=== PATIENT | female | born 1960 | race Caucasian/White ===

== ENCOUNTER 2017-06-15 10:03 | Inpatient (IN) | payer OTHER ==
[2017-06-15 10:57] VITALS: BMI 35.5
--- NOTE | 2017-06-15 13:06 | HP ---
CIWA Score - CIWA Score Nausea/Vomitin-No Nausea/No Vomiting Muscle Tremors: 4-Moderate,w/Arms Extend Anxiety: 4-Mod. Anxious/Guarded Agitation: 4-Moderately Restless Paroxysmal Sweats: 1-Minimal Palms Moist Orientation: 0-Oriented Tacttile Disturbances: 3-Moderate Itch/Numb/Burn Auditory Disturbances: 0-None Visual Disturbances: 0-None Headache: 0-None Present CIWA-Ar Total Score: 16 Admission ROS BHS - HPI Chief Complaint: DETOX TX FOR ALCOHOL AND XANAX DEPENDENCE Allergies/Adverse Reactions: Allergies Allergy/AdvReac Type Severity Reaction Status Date / Time haloperidol [From Haldol] AdvReac stiffness Verified 06/15/17 12:12 haloperidol lactate AdvReac stiffness Verified 06/15/17 12:12 [From Haldol] History of Present Illness: 56 Y/O H/FEMALE WITH A HX ALCOHOL AND XANAX DEPENDENCE ON MMTP SEEKING DETOX TX Exam Limitations: No Limitations - Ebola screening Have you traveled outside of the country in the last 21 days: No Have you had contact with anyone from an Ebola affected area: No Have you been sick,other than usual withdrawal symptoms: No Do you have a fever: No - Review of Systems Constitutional: Chills, Loss of Appetite, Night Sweats EENT: reports: Tearing, Nose Congestion, Dental Problems (MISSING TOP TEETH) Respiratory: reports: Shortness of Breath (HX ASTHMA), Wheezing Cardiac: reports: Lightheadedness GI: reports: Constipated : reports: Frequency Musculoskeletal: reports: Back Pain, Joint Pain, Muscle Pain, Other (INGROWN NAIL-RIGHT TOE(WAS ON ANTIBIOTICS)) Integumentary: reports: No Symptoms Reported Neuro: reports: Headache, Tremors, Dizziness Endocrine: reports: No Symptoms Reported Hematology: reports: Anemia Psychiatric: reports: Orientated x3, Agitated, Anxious, Depressed Other Systems: Reviewed and Negative Patient History - Patient Medical History Hx Anemia: No Hx Asthma: Yes (MDI) Hx Chronic Obstructive Pulmonary Disease (COPD): No Hx Cancer: No Hx Cardiac Disorders: No Hx Congestive Heart Failure: No Hx Hypertension: Yes (ON CLONIDINE) Hx Hypercholesterolemia: No Hx Pacemaker: No HX Cerebrovascular Accident: No Hx Seizures: No Hx Dementia: No Hx Diabetes: No Hx Gastrointestinal Disorders: No Hx Liver Disease: No Hx Genitourinary Disorders: No Hx Sexually Transmitted Disorders: No Hx Renal Disease (ESRD): No Hx Thyroid Disease: No Hx Human Immunodeficiency Virus (HIV): No (NEGATIVE HX) Hx Hepatitis C: No Hx Depression: Yes (ON MEDS) Hx Suicide Attempt: No (DENIES) Hx Bipolar Disorder: Yes Hx Schizophrenia: No - Patient Surgical History Past Surgical History: Yes Hx Neurologic Surgery: No Hx Cataract Extraction: No Hx Cardiac Surgery: No Hx Lung Surgery: No Hx Breast Surgery: No Hx Breast Biopsy: No Hx Abdominal Surgery: No Hx Appendectomy: No Hx Cholecystectomy: No Hx Genitourinary Surgery: No Hx Section: No Hx Orthopedic Surgery: Yes (chris. TKR ) Other Surgical History: removal of benign cyst, left breast/left hand Anesthesia Reaction: No - PPD History Previous Implant?: Yes Documented Results: Negative w/proof Implanted On Prior [facility] Admission?: Yes Date: 10/26/15 Results: 0 mm PPD to be Administered?: Yes - Reproductive History Patient is a Female of Child Bearing Age (11 -55 yrs old): Yes Last Menstrual Period: 02/26/12 Patient : No - Smoking Cessation Smoking history: Current every day smoker Have you smoked in the past 12 months: Yes Aproximately how many cigarettes per day: 10 Hx Chewing Tobacco Use: No Initiated information on smoking cessation: Yes 'Breaking Loose' booklet given: 06/15/17 - Substance & Tx. History Hx Alcohol Use: Yes (VODKA) Hx Substance Use: Yes (XANAX) Substance Use Type: Alcohol, Tranquilizers Hx Substance Use Treatment: Yes (LAST TX AT [facility] A YR AGO.) - Substances Abused Alcohol Route: Oral Frequency: Daily Amount used: vodka(1 pint) Age of first use: 55 Date of Last Use: 06/15/17 Alprazolam (Xanax) Route: Oral Frequency: Daily Amount used: 2 stiks Age of first use: 21 Date of Last Use: 06/15/17 Family Disease History - Family Disease History Family Disease History: Other: Mother (MENTAL ILLNESS) Admission Physical Exam BHS - Vital Signs Vital Signs: Vital Signs - 24 hr 06/15/17 10:55 Temperature 97.5 F L Pulse Rate 81 Respiratory 18 Rate Blood Pressure 155/91 - Physical Cardiology: Yes: Regular Rhythm, Regular Rate, S1, S2 Abdominal: Yes: Normal Bowel Sounds, Non Tender, Soft Genitourinary: Yes: Other (N/C) Musculoskeletal: Yes: full range of Motion, Gait Steady, Other (RIGHT TOE WITH HEALING OPEN WOUND DUE TO INGROWN NAIL SX PROCEDURE ON MONTH AGO.) Extremities: Yes: Normal Range of Motion, Non-Tender, Tremors 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 NML intact, Fully Oriented, Alert, Motor Strength 5/5 Integumentary: Yes: Dry, Warm Lymphatic: Yes: Within Normal Limits - Diagnostic (1) Asthma Current Visit: Yes Status: Acute Qualifiers: Asthma severity: mild intermittent Asthma complication type: uncomplicated Qualified Code(s): J45.20 - Mild intermittent asthma, uncomplicated (2) Alcohol dependence with uncomplicated withdrawal Current Visit: Yes Status: Acute (3) Essential hypertension Current Visit: Yes Status: Chronic (4) MMTP Current Visit: Yes Status: Chronic (5) Nicotine dependence Current Visit: Yes Status: Acute Qualifiers: Nicotine product type: cigarettes Substance use status: in withdrawal Qualified Code(s): F17.213 - Nicotine dependence, cigarettes, with withdrawal (6) Obese Current Visit: Yes Status: Chronic Qualifiers: Obesity type: unspecified obesity type (7) Sedative, hypnotic or anxiolytic dependence with withdrawal, uncomplicated Current Visit: Yes Status: Acute Cleared for Admission S - Detox or Rehab [facility] Level of Care: Medically Managed Detox Regimen/Protocol: Valium [facility] Breath Alcohol Content Breath Alcohol Content: 0 Urine Pregancy Test - Result Urine Test Results: Negative- NO Line Present Urine Drug Screen - Results Urine Drug Screen Results: ZENIA-Cocaine, BZO-Benzodiazepines, MTD-Methadone
[2017-06-15] MEDS ORDERED: ACETAMINOPHEN 325 MG TABLET (FP) PO PRN (13:26)
[2017-06-15] MEDS ORDERED: LOPERAMIDE HCL 2 MG CAPSULE PO PRN (13:26)
[2017-06-15] MEDS ORDERED: IBUPROFEN 400 MG TABLET (FP) PO PRN (13:26)
[2017-06-15] MEDS ORDERED: MAGNESIUM CITRATE 300 ML BOTTLE PO PRN (13:26)
[2017-06-15] MEDS ORDERED: MAGNESIUM HYDROX 2400MG/30ML ORAL SUSPENSION 30 ML CUP PO PRN (13:26)
[2017-06-15] MEDS ORDERED: P-EPHED 60MG/TRIPROLIDI 2.5MG TABLET PO PRN (13:26)
[2017-06-15] MEDS ORDERED: hydrOXYzine PAMOATE 50 MG CAPSULE (FP) PO PRN (13:26)
[2017-06-15] MEDS ORDERED: guaiFENesin/D-METHORPHAN HB 10 ML UNIT-DOSE CUPS PO PRN (13:26)
[2017-06-15] MEDS ORDERED: NICOTINE POLACRILEX 2 MG GUM BC PRN (13:26)
[2017-06-15] MEDS ORDERED: MAG HYDROX/AL HYDROX/SIMETH 30 ML UNIT-DOSE CUP PO PRN (13:26)
[2017-06-15] MEDS ORDERED: MENTHOL/PHENOL 1 EACH UD MM PRN (13:26)
[2017-06-15] MEDS ORDERED: ALBUTEROL SO4 6.7 GM HFA INHALER IH PRN (13:30)
[2017-06-15] MEDS ORDERED: BACITRACIN 15 GM TUBE TOPICAL OINTMENT TP SCH (13:30)
[2017-06-15] MEDS ORDERED: diazePAM 5 MG TABLET PO ONE (14:00)
[2017-06-15] MEDS: BACITRACIN 0.9 GM PACKET TP SCH ×2 (14:08→22:36)
[2017-06-15] MEDS: NICOTINE 14 MG/24 HOURS TOPICAL PATCH TD SCH (14:10)
[2017-06-15] MEDS: diazePAM 5 MG TABLET PO SCH ×2 (14:10→22:36)
[2017-06-15 17:11] LABS: URINE APPEARANCE CLOUDY; URINE BILIRUBIN NEGATIVE (NEGATIVE); URINE BLOOD 2+ (NEGATIVE); URINE COLOR DKYELLOW; URINE GLUCOSE (UA) NEGATIVE (NEGATIVE); URINE KETONE NEGATIVE (NEGATIVE); URINE LEUK ESTERASE TRACE (NEGATIVE); URINE NITRITE POSITIVE (NEGATIVE); URINE PROTEIN NEGATIVE (NEGATIVE); URINE UROBILINOGEN NEGATIVE mg/dL (0.2-1.0)
[2017-06-15 17:20] LABS: URINE BACTERIA RARE /hpf (NONE SEEN); URINE HYALINE CAST 1 /lpf; URINE MUCUS RARE; URINE RBC 4 /hpf (0-3); URINE WBC 9 /hpf (3-5)
[2017-06-15] MEDS: diazePAM 5 MG TABLET PO PRN (20:17)
[2017-06-15] MEDS: THIAMINE HCL 100 MG TABLET (FP) PO SCH (22:36)
[2017-06-16] MEDS: diazePAM 5 MG TABLET PO SCH ×3 (05:56→22:05)
[2017-06-16] MEDS ORDERED: METHADONE HCL 10 MG TABLET PO SCH (06:00)
[2017-06-16] MEDS ORDERED: METHADONE HCL 10 MG TABLET PO ONE (09:16)
[2017-06-16] MEDS ORDERED: METHADONE 40 MG, METHADONE 10 MG PO ONE (10:00)
[2017-06-16 10:07] LABS: MCH 26.9 pg (25.7-33.7); MCHC 32.6 g/dl (32.0-36.0); MEAN CELL VOLUME 82.6 fl (80-96); MEAN PLT VOLUME 9.4 fl (7.5-11.1); PLATELET COUNT 181 K/MM3 (134-434); WHITE BLOOD COUNT 5.9 K/mm3 (4.0-10.0)
[2017-06-16] MEDS: PRENATAL VITAMINS W/ FOLIC ACID TABLET (FP) PO SCH (10:40)
[2017-06-16] MEDS: cloNIDine HCL 0.1 MG TABLET PO SCH (10:41)
[2017-06-16] MEDS: BACITRACIN 0.9 GM PACKET TP SCH ×2 (10:41→22:05)
[2017-06-16] MEDS ORDERED: METHADONE HCL 40 MG DISPERSABLE TABLET ONE (10:42)
[2017-06-16] MEDS ORDERED: METHADONE HCL 10 MG TABLET ONE (10:42)
[2017-06-16] MEDS: NICOTINE 14 MG/24 HOURS TOPICAL PATCH TD SCH (10:45)
[2017-06-16 11:02] LABS: ALBUMIN 4.1 g/dl (3.4-5.0); ALK PHOS 108 U/L (45-117); ANION GAP 8 (8-16); BILIRUBIN,TOTAL 0.8 mg/dL (0.2-1.0); CALCIUM 9.2 mg/dL (8.5-10.1); CO2 30 mmol/L (21-32); CREATININE 0.9 mg/dL (0.55-1.02); GLUCOSE,RANDOM 87 mg/dL (74-106); SGOT/AST 21 U/L (15-37); SGPT/ALT 25 U/L (12-78); TOT PROT 7.7 g/dl (6.4-8.2)
--- NOTE | 2017-06-16 12:06 | PN ---
S CIWA - CIWA Score Nausea/Vomitin-No Nausea/No Vomiting Muscle Tremors: 4-Moderate,w/Arms Extend Anxiety: 3 Agitation: 4-Moderately Restless Paroxysmal Sweats: 3 Orientation: 0-Oriented Tacttile Disturbances: 0-None Auditory Disturbances: 0-None Visual Disturbances: 0-None Headache: 0-None Present CIWA-Ar Total Score: 14 BHS Progress Note (SOAP) Subjective: agitation anxiety sweats shakes interrupted sleep tired Objective: 06/16/17 12:05 Vital Signs Temperature 97.7 F 06/16/17 10:34 Pulse Rate 84 06/16/17 10:34 Respiratory Rate 18 06/16/17 10:34 Blood Pressure 131/89 06/16/17 10:34 O2 Sat by Pulse Oximetry (%) Laboratory Tests 06/15/17 06/16/17 06/16/17 15:00 06:00 06:00 WBC 5.9 RBC 4.83 Hgb 13.0 Hct 39.9 MCV 82.6 MCH 26.9 MCHC 32.6 RDW 16.0 H Plt Count 181 MPV 9.4 Sodium 140 Potassium 3.9 Chloride 102 Carbon Dioxide 30 D Anion Gap 8 BUN 18 Creatinine 0.9 Creat Clearance w eGFR > 60 Random Glucose 87 D Calcium 9.2 Total Bilirubin 0.8 D AST 21 ALT 25 Alkaline Phosphatase 108 Total Protein 7.7 Albumin 4.1 Urine Color Dkyellow Urine Appearance Cloudy Urine pH 7.0 Ur Specific [place] 1.020 Urine Protein Negative Urine Glucose (UA) Negative Urine Ketones Negative Urine Blood 2+ H Urine Nitrite Positive Urine Bilirubin Negative Urine Urobilinogen Negative Ur Leukocyte Esterase Trace Urine RBC 4 Urine WBC 9 Ur Epithelial Cells Rare Urine Bacteria Rare Hyaline Casts 1 Urine Mucus Rare RPR Titer 06/16/17 06:00 WBC RBC Hgb Hct MCV MCH MCHC RDW Plt Count MPV Sodium Potassium Chloride Carbon Dioxide Anion Gap BUN Creatinine Creat Clearance w eGFR Random Glucose Calcium Total Bilirubin AST ALT Alkaline Phosphatase Total Protein Albumin Urine Color Urine Appearance Urine pH Ur Specific [place] Urine Protein Urine Glucose (UA) Urine Ketones Urine Blood Urine Nitrite Urine Bilirubin Urine Urobilinogen Ur Leukocyte Esterase Urine RBC Urine WBC Ur Epithelial Cells Urine Bacteria Hyaline Casts Urine Mucus RPR Titer Nonreactive awake/alert ambulating no acute distress Assessment: 06/16/17 12:05 withdrawal sx Plan: continue detox increase fluids
--- NOTE | 2017-06-16 13:28 | CONSULT ---
[facility] Psychiatric Consult - Data Date of interview: 06/16/17 Admission source: [facility] Identifying data: Patient refused psychiatric evaluation.Staff made aware.
[2017-06-16] MEDS: diazePAM 5 MG TABLET PO PRN (17:17)
[2017-06-16] MEDS: diphenhydrAMINE HCL 50 MG CAPSULE PO PRN (22:05)
[2017-06-16] MEDS: THIAMINE HCL 100 MG TABLET (FP) PO SCH (22:06)
[2017-06-17] MEDS ORDERED: METHADONE HCL 40 MG DISPERSABLE TABLET ONE (04:29)
[2017-06-17] MEDS ORDERED: METHADONE HCL 10 MG TABLET ONE (04:29)
[2017-06-17] MEDS: METHADONE 40 MG, METHADONE 10 MG PO SCH (05:51)
[2017-06-17] MEDS: diazePAM 5 MG TABLET PO PRN ×2 (05:52→17:19)
[2017-06-17] MEDS ORDERED: METHADONE HCL 40 MG DISPERSABLE TABLET PO SCH (06:00)
[2017-06-17] MEDS: PRENATAL VITAMINS W/ FOLIC ACID TABLET (FP) PO SCH (10:34)
[2017-06-17] MEDS: BACITRACIN 0.9 GM PACKET TP SCH ×2 (10:34→22:06)
[2017-06-17] MEDS: diazePAM 5 MG TABLET PO SCH ×2 (10:34→22:06)
[2017-06-17] MEDS: cloNIDine HCL 0.1 MG TABLET PO SCH (10:34)
[2017-06-17] MEDS: NICOTINE 14 MG/24 HOURS TOPICAL PATCH TD SCH (10:36)
--- NOTE | 2017-06-17 11:03 | PN ---
[facility] CIWA - CIWA Score Nausea/Vomitin-No Nausea/No Vomiting Muscle Tremors: 3 Anxiety: 3 Agitation: 3 Paroxysmal Sweats: 3 Orientation: 0-Oriented Tacttile Disturbances: 0-None Auditory Disturbances: 0-None Visual Disturbances: 0-None Headache: 0-None Present CIWA-Ar Total Score: 12 S Progress Note (SOAP) Subjective: sweats shakes interrupted sleep Objective: 06/17/17 10:59 Vital Signs Temperature 98.2 F 06/17/17 10:12 Pulse Rate 70 06/17/17 10:12 Respiratory Rate 18 06/17/17 10:12 Blood Pressure 115/86 06/17/17 10:12 O2 Sat by Pulse Oximetry (%) Laboratory Tests 06/15/17 06/16/17 06/16/17 15:00 06:00 06:00 WBC 5.9 RBC 4.83 Hgb 13.0 Hct 39.9 MCV 82.6 MCH 26.9 MCHC 32.6 RDW 16.0 H Plt Count 181 MPV 9.4 Sodium 140 Potassium 3.9 Chloride 102 Carbon Dioxide 30 D Anion Gap 8 BUN 18 Creatinine 0.9 Creat Clearance w eGFR > 60 Random Glucose 87 D Calcium 9.2 Total Bilirubin 0.8 D AST 21 ALT 25 Alkaline Phosphatase 108 Total Protein 7.7 Albumin 4.1 Urine Color Dkyellow Urine Appearance Cloudy Urine pH 7.0 Ur Specific [place] 1.020 Urine Protein Negative Urine Glucose (UA) Negative Urine Ketones Negative Urine Blood 2+ H Urine Nitrite Positive Urine Bilirubin Negative Urine Urobilinogen Negative Ur Leukocyte Esterase Trace Urine RBC 4 Urine WBC 9 Ur Epithelial Cells Rare Urine Bacteria Rare Hyaline Casts 1 Urine Mucus Rare RPR Titer 06/16/17 06:00 WBC RBC Hgb Hct MCV MCH MCHC RDW Plt Count MPV Sodium Potassium Chloride Carbon Dioxide Anion Gap BUN Creatinine Creat Clearance w eGFR Random Glucose Calcium Total Bilirubin AST ALT Alkaline Phosphatase Total Protein Albumin Urine Color Urine Appearance Urine pH Ur Specific [place] Urine Protein Urine Glucose (UA) Urine Ketones Urine Blood Urine Nitrite Urine Bilirubin Urine Urobilinogen Ur Leukocyte Esterase Urine RBC Urine WBC Ur Epithelial Cells Urine Bacteria Hyaline Casts Urine Mucus RPR Titer Nonreactive awake/alert ambulating no acute distress Assessment: 06/17/17 11:02 withdrawal sx Plan: continue detox increase fluids
[2017-06-17] MEDS: diphenhydrAMINE HCL 50 MG CAPSULE PO PRN (22:06)
[2017-06-17] MEDS: THIAMINE HCL 100 MG TABLET (FP) PO SCH (22:06)
[2017-06-18] MEDS ORDERED: METHADONE HCL 40 MG DISPERSABLE TABLET ONE (05:11)
[2017-06-18] MEDS ORDERED: METHADONE HCL 10 MG TABLET ONE (05:12)
[2017-06-18] MEDS: METHADONE 40 MG, METHADONE 10 MG PO SCH (05:23)
--- NOTE | 2017-06-18 09:52 | PN ---
BHS Progress Note (SOAP) Subjective: feeling fine very little sweats Objective: 06/18/17 09:51 Vital Signs Temperature 97.3 F L 06/18/17 09:39 Pulse Rate 69 06/18/17 09:39 Respiratory Rate 16 06/18/17 09:39 Blood Pressure 134/79 06/18/17 09:39 O2 Sat by Pulse Oximetry (%) awake/alert ambulating no acute distress Assessment: 06/18/17 09:51 mild withdrawal sx Plan: continue detox increase fluids d/c in am
[2017-06-18] MEDS: diazePAM 5 MG TABLET PO SCH ×2 (10:22→22:30)
[2017-06-18] MEDS: cloNIDine HCL 0.1 MG TABLET PO SCH (10:22)
[2017-06-18] MEDS: BACITRACIN 0.9 GM PACKET TP SCH ×2 (10:23→22:30)
[2017-06-18] MEDS: PRENATAL VITAMINS W/ FOLIC ACID TABLET (FP) PO SCH (10:23)
[2017-06-18] MEDS: NICOTINE 14 MG/24 HOURS TOPICAL PATCH TD SCH (10:23)
--- NOTE | 2017-06-18 11:37 | EKG ---
Test Reason : Blood Pressure : / mmHG Vent. Rate : 073 BPM Atrial Rate : 073 BPM P-R Int : 184 ms QRS Dur : 086 ms QT Int : 396 ms P-R-T Axes : 071 011 025 degrees QTc Int : 436 ms NORMAL SINUS RHYTHM NORMAL ECG NO PREVIOUS ECGS AVAILABLE Confirmed by ELY ROMAN MD ([id number]) on 06/18/2017 11:37:43 AM Referred By: Danny Curiel Confirmed By:ELY ROMAN MD
[2017-06-18] MEDS: THIAMINE HCL 100 MG TABLET (FP) PO SCH (22:30)
[2017-06-19] MEDS ORDERED: METHADONE HCL 10 MG TABLET ONE (04:09)
[2017-06-19] MEDS ORDERED: METHADONE HCL 40 MG DISPERSABLE TABLET ONE (04:09)
[2017-06-19] MEDS: METHADONE 40 MG, METHADONE 10 MG PO SCH (05:52)
--- NOTE | 2017-06-19 09:15 | DS ---
[facility] Detox Discharge Summary Admission Date: 06/15/17 Discharge Date: 06/19/17 - History Present History: Alcohol Dependence, Sedative Dependence - Physical Exam Results Vital Signs: Vital Signs Temperature 97.0 F L 06/19/17 06:00 Pulse Rate 79 06/19/17 06:00 Respiratory Rate 18 06/19/17 06:00 Blood Pressure 118/76 06/19/17 06:00 O2 Sat by Pulse Oximetry (%) - Treatment Hospital Course: Detox Protocol Followed, Detoxed Safely, Responded well, Discharged Condition Good, Rehab Referral Accepted - Medication Discharge Medications: Ambulatory Orders Clonidine HCl [Catapres] 0.3 mg PO DAILY 04/07/12 Quetiapine Fumarate [Seroquel -] 200 mg PO BID #60 tablet 10/24/15 Albuterol Sulfate Inhaler - [Ventolin HFA Inhaler -] 0 puff IH Q4H PRN #1 inhaler 10/28/15 - Diagnosis (1) Alcohol dependence with uncomplicated withdrawal Current Visit: Yes Status: Chronic (2) Asthma Current Visit: Yes Status: Chronic Qualifiers: Asthma severity: mild intermittent Asthma complication type: uncomplicated Qualified Code(s): J45.20 - Mild intermittent asthma, uncomplicated (3) Nicotine dependence Current Visit: Yes Status: Chronic Qualifiers: Nicotine product type: cigarettes Substance use status: uncomplicated Qualified Code(s): F17.210 - Nicotine dependence, cigarettes, uncomplicated (4) Sedative, hypnotic or anxiolytic dependence with withdrawal, uncomplicated Current Visit: Yes Status: Chronic (5) Essential hypertension Current Visit: Yes Status: Chronic (6) MMTP Current Visit: Yes Status: Chronic (7) Obese Current Visit: Yes Status: Chronic Qualifiers: Obesity type: unspecified obesity type - AMA Did Patient Leave Against Medical Advice: No (going home and back to her MMTP)
[2017-06-19] MEDS: NICOTINE 14 MG/24 HOURS TOPICAL PATCH TD SCH (09:55)
[2017-06-19] MEDS: cloNIDine HCL 0.1 MG TABLET PO SCH (09:55)
[2017-06-19] MEDS: PRENATAL VITAMINS W/ FOLIC ACID TABLET (FP) PO SCH (09:55)
[2017-06-19] MEDS: BACITRACIN 0.9 GM PACKET TP SCH (09:55)
[2017-06-19] MEDS ORDERED: diazePAM 5 MG TABLET PO SCH (10:00)
[2017-06-19 10:39] VITALS: BP 126/90; PULSE 78; TEMP 98.2
== END 2017-06-19 11:20 | disposition home or self-care (01) | DRG 773 ==
LOC: YASAS 10:03 → Y6N 13:19
PROVIDERS: ADMIT Internal Medicine Addiction Medicine; ATTEND Internal Medicine Addiction Medicine
PROC: HZ2ZZZZ Detoxification Services for Substance Abuse Treatment (ICD-10-PCS; principal; 2017-06-19)
DX: F11.20 Opioid dependence, uncomplicated (principal); F10.230 Alcohol dependence with withdrawal, uncomplicated; F17.210 Nicotine dependence, cigarettes, uncomplicated; I10 Essential (primary) hypertension; E66.09 Other obesity due to excess calories; Z68.35 Body mass index [BMI] 35.0-35.9, adult
CPT/HCPCS: 36415; 80053; 81003; 81015; 85027; 86593; 93005; 93010

== ENCOUNTER 2017-11-09 11:24 | Inpatient (IN) | payer OTHER ==
[2017-11-09 14:43] VITALS: BMI 34.1
--- NOTE | 2017-11-09 17:53 | HP ---
CIWA Score - CIWA Score Nausea/Vomitin-Mild Nausea/No Vomiting Muscle Tremors: 4-Moderate,w/Arms Extend Anxiety: 4-Mod. Anxious/Guarded Agitation: 4-Moderately Restless Paroxysmal Sweats: 1-Minimal Palms Moist Orientation: 3-Disoriented Date>2 days Tacttile Disturbances: 1-Very Mild Itch/Numbness Auditory Disturbances: 0-None Visual Disturbances: 0-None Headache: 0-None Present CIWA-Ar Total Score: 18 Admission ROS S - HPI Chief Complaint: withdrawal sx Allergies/Adverse Reactions: Allergies Allergy/AdvReac Type Severity Reaction Status Date / Time haloperidol [From Haldol] AdvReac stiffness Verified 11/09/17 15:47 haloperidol lactate AdvReac stiffness Verified 11/09/17 15:47 [From Haldol] History of Present Illness: 57 years old female with long history of alcohol xanax nicotine dependence has asthma hypertension methadone 40mg po daily and bipolar ii is admitted to detox Exam Limitations: No Limitations - Ebola screening Have you traveled outside of the country in the last 21 days: No (N) Have you had contact with anyone from an Ebola affected area: No Have you been sick,other than usual withdrawal symptoms: No Do you have a fever: No - Review of Systems Constitutional: Changes in sleep, Weight Stable EENT: reports: Dental Problems (upper denture missing) Respiratory: reports: SOB with Exertion Cardiac: reports: No Symptoms Reported GI: reports: Diarrhea, Nausea, Poor Fluid Intake, Indigestion, Abdominal cramping : reports: No Symptoms Reported Musculoskeletal: reports: Back Pain (x 20 years) Integumentary: reports: No Symptoms Reported Neuro: reports: Seizure (denies seizure), Tremors Endocrine: reports: No Symptoms Reported Hematology: reports: No Symptoms Reported Psychiatric: reports: Judgement Intact, Depressed Other Systems: Reviewed and Negative Patient History - Patient Medical History Hx Anemia: No Hx Asthma: Yes (Pt is on MDI) Hx Chronic Obstructive Pulmonary Disease (COPD): No Hx Cancer: No Hx Cardiac Disorders: No Hx Congestive Heart Failure: No Hx Hypertension: Yes Hx Hypercholesterolemia: No Hx Pacemaker: No HX Cerebrovascular Accident: No Hx Seizures: No Hx Dementia: No Hx Diabetes: No Hx Gastrointestinal Disorders: Yes Hx Liver Disease: No Hx Genitourinary Disorders: No Hx Sexually Transmitted Disorders: No Hx Renal Disease (ESRD): No Hx Thyroid Disease: No Hx Human Immunodeficiency Virus (HIV): No (NEGATIVE HX) Hx Hepatitis C: No Hx Depression: No Hx Suicide Attempt: No Hx Bipolar Disorder: Yes Hx Schizophrenia: No - Patient Surgical History Past Surgical History: Yes Hx Neurologic Surgery: No Hx Cataract Extraction: No Hx Cardiac Surgery: No Hx Lung Surgery: No Hx Breast Surgery: No Hx Breast Biopsy: No Hx Abdominal Surgery: No Hx Appendectomy: No Hx Cholecystectomy: No Hx Genitourinary Surgery: No Hx Section: No Hx Orthopedic Surgery: Yes (chris. TKR IN 2013) Hx Hysterectomy: No Other Surgical History: removal of benign cyst, left breast/left hand Anesthesia Reaction: No - PPD History Previous Implant?: Yes Documented Results: Negative w/proof Implanted On Prior [facility] Admission?: Yes Date: 06/17/17 Results: 0 MM PPD to be Administered?: No - Reproductive History Patient is a Female of Child Bearing Age (11 -55 yrs old): No Last Menstrual Period: 02/26/12 Patient : No - Smoking Cessation Smoking history: Current every day smoker Have you smoked in the past 12 months: Yes Aproximately how many cigarettes per day: 10 Cigars Per Day: 0 Hx Chewing Tobacco Use: No Initiated information on smoking cessation: Yes 'Breaking Loose' booklet given: 11/09/17 - Substance & Tx. History Hx Alcohol Use: Yes Hx Substance Use: Yes Substance Use Type: Alcohol, Tranquilizers Hx Substance Use Treatment: Yes (06/2017 [facility] - Substances Abused Alcohol Route: Oral Frequency: Daily Amount used: 1 PINT VODKA Age of first use: 10 Date of Last Use: 11/09/17 Alprazolam (Xanax) Route: Oral Frequency: Daily Amount used: 8MG Age of first use: 52 Date of Last Use: 11/09/17 Family Disease History - Family Disease History Family Disease History: Other: Father (no contact), Mother (MENTAL ILLNESS/ ) Admission Physical Exam S - Vital Signs Vital Signs: Vital Signs - 24 hr 11/09/17 14:39 Temperature 96 F L Pulse Rate 73 Respiratory 20 Rate Blood Pressure 144/88 - Physical General Appearance: Yes: Nourished, Appropriately Dressed, Mild Distress, Tremorous, Irritable, Sweating, Anxious HEENTM: Yes: Hearing grossly Normal, Normal ENT Inspection, Normocephalic, Normal Voice Respiratory: Yes: Chest Non-Tender, No Respiratory Distress, No Accessory Muscle Use, Wheezing Neck: Yes: Supple, Trachea in good position Breast: Yes: Breasts Symetrical Cardiology: Yes: Regular Rhythm, Regular Rate, S1, S2 Abdominal: Yes: Non Tender, Soft, Increased Bowel Sounds Genitourinary: Yes: Within Normal Limits Back: Yes: Normal Inspection Musculoskeletal: Yes: full range of Motion, Gait Steady, Other (knees pain) Extremities: Yes: Normal Range of Motion, Non-Tender, Tremors, Other (knees scars) Neurological: Yes: Alert, Motor Strength 5/5, Normal Response, Depressed Affect Integumentary: Yes: Warm Lymphatic: Yes: Within Normal Limits - Diagnostic (1) GERD (gastroesophageal reflux disease) Current Visit: Yes Status: Chronic Qualifiers: Esophagitis presence: without esophagitis Qualified Code(s): K21.9 - Gastro -esophageal reflux disease without esophagitis (2) Bipolar II disorder Current Visit: Yes Status: Suspected (3) Alcohol dependence with uncomplicated withdrawal Current Visit: Yes Status: Acute (4) Asthma Current Visit: Yes Status: Chronic Qualifiers: Asthma severity: mild Asthma persistence: intermittent Asthma complication type: uncomplicated Qualified Code(s): J45.20 - Mild intermittent asthma, uncomplicated (5) Essential hypertension Current Visit: Yes Status: Chronic (6) Nicotine dependence Current Visit: Yes Status: Acute Qualifiers: Nicotine product type: cigarettes Substance use status: in withdrawal Qualified Code(s): F17.213 - Nicotine dependence, cigarettes, with withdrawal (7) Sedative, hypnotic or anxiolytic dependence with withdrawal, uncomplicated Current Visit: Yes Status: Acute Cleared for Admission [facility] - Detox or Rehab [facility] Level of Care: Medically Managed Detox Regimen/Protocol: Valium [facility] Breath Alcohol Content Breath Alcohol Content: 0 Urine Pregancy Test - Result Urine Test Results: Negative- NO Line Present Urine Drug Screen - Results Drug Screen Negative: No Urine Drug Screen Results: BZO-Benzodiazepines, MTD-Methadone, TCA-Tricyclic Antidepress
[2017-11-09] MEDS ORDERED: MAG HYDROX/AL HYDROX/SIMETH 30 ML UNIT-DOSE CUP PO PRN (17:56)
[2017-11-09] MEDS ORDERED: MAGNESIUM HYDROX 2400MG/30ML ORAL SUSPENSION 30 ML CUP PO PRN (17:56)
[2017-11-09] MEDS ORDERED: MENTHOL/PHENOL 1 EACH UD MM PRN (17:56)
[2017-11-09] MEDS ORDERED: LOPERAMIDE HCL 2 MG CAPSULE PO PRN (17:56)
[2017-11-09] MEDS ORDERED: ACETAMINOPHEN 325 MG TABLET (FP) PO PRN (17:56)
[2017-11-09] MEDS ORDERED: MAGNESIUM CITRATE 300 ML BOTTLE PO PRN (17:56)
[2017-11-09] MEDS ORDERED: P-EPHED 60MG/TRIPROLIDI 2.5MG TABLET PO PRN (17:56)
[2017-11-09] MEDS ORDERED: guaiFENesin/D-METHORPHAN HB 10 ML UNIT-DOSE CUPS PO PRN (17:56)
[2017-11-09] MEDS ORDERED: NICOTINE POLACRILEX 2 MG GUM BC PRN (17:56)
[2017-11-09] MEDS ORDERED: ALBUTEROL SO4 18 GM HFA INHALER IH PRN (17:59)
[2017-11-09] MEDS ORDERED: ALBUTEROL SO4 0.083% IH SOL 2.5 MG/3 ML VIAL.NEB. NEB PRN (18:00)
[2017-11-09] MEDS ORDERED: diazePAM 5 MG TABLET PO ONE (18:30)
[2017-11-09] MEDS: diazePAM 5 MG TABLET PO SCH (22:17)
[2017-11-09] MEDS: RANITIDINE HCL 150 MG TABLET (FP) PO SCH (22:17)
[2017-11-09] MEDS: THIAMINE HCL 100 MG TABLET (FP) PO SCH (22:17)
[2017-11-09 22:55] LABS: URINE APPEARANCE TURBID; URINE BILIRUBIN NEGATIVE (NEGATIVE); URINE BLOOD 1+ (NEGATIVE); URINE COLOR YELLOW; URINE GLUCOSE (UA) NEGATIVE (NEGATIVE); URINE KETONE NEGATIVE (NEGATIVE); URINE NITRITE NEGATIVE (NEGATIVE); URINE UROBILINOGEN NEGATIVE mg/dL (0.2-1.0)
[2017-11-09] MEDS: LIDOCAINE PATCH REMOVAL MC SCH (22:57)
[2017-11-09 23:10] LABS: URINE LEUK ESTERASE 1+ (NEGATIVE); URINE PROTEIN 1+ (NEGATIVE)
[2017-11-09 23:14] LABS: URINE BACTERIA FEW /hpf (NONE SEEN); URINE MUCUS MANY
[2017-11-10] MEDS: diazePAM 5 MG TABLET PO SCH ×3 (05:32→22:18)
[2017-11-10] MEDS ORDERED: METHADONE HCL 10 MG TABLET PO SCH ×2 (09:30→10:49)
--- NOTE | 2017-11-10 09:33 | CONSULT ---
[facility] Psychiatric Consult - Data Date of interview: 11/10/17 Admission source: [facility] Identifying data: Pt. is a 57 year old female, single, mother of two, and currently unemployed. This is one of multiple admissions for patient. Pt. admitted to for alcohol and benzodiazepines dependence. Substance Abuse History: Following information confirmed with Ms. Henry: Smoking Cessation. Smoking history: Current every day smoker. Have you smoked in the past 12 months: Yes. Aproximately how many cigarettes per day: 10. Cigars Per Day: 0. Hx Chewing Tobacco Use: No. Initiated information on smoking cessation: Yes. 'Breaking Loose' booklet given: 11/09/17. - Substance & Tx. History. Hx Alcohol Use: Yes. Hx Substance Use: Yes. Substance Use Type : Alcohol, Tranquilizers. Hx Substance Use Treatment: Yes (06/2017 [facility]). - Substances Abused. Alcohol. Route: Oral. Frequency: Daily. Amount used : 1 PINT VODKA. Age of first use: 10. Date of Last Use: 11/09/17. Alprazolam (Xanax). Route: Oral. Frequency: Daily. Amount used: 8MG. Age of first use: 52. Date of Last Use: 11/09/17 Medical History: Asthma, hypertension Psychiatric History: Pt. reports h/o one psychiatric hospitalization approximately five years ago at [facility]. Reports a diagnosis of Bipolar disorder. Is currently seeing a psychiatrist at [facility] on [address] [place] [address]. As per pharmacy claims on 10/29/2017 patient is prescribed: Seroquel 200mg BID, Topamax 50mg BID, Ambien 10mg prn, klonopin 1mg q8r, and clonodine 0.3mg BID. Pt. reports medicatin nonadherence. Only requesting seroquel 100mg qhs. Pt. encouraged to take a morning dose of seroquel. Pt. agreeable to taking seroquel 50mg po daily in addition to the seroquel 100mg qhs. Pt. denies h/o suicide attempts. Physical/Sexual Abuse/Trauma History: Denies. Mental Status Exam - Mental Status Exam Alert and Oriented to: Time, Place, Person Cognitive Function: Good Patient Appearance: Well Groomed Mood: Euthymic Affect: Mood Congruent Patient Behavior: Cooperative, Agitated (Pt. irritable towards the beginning then able to settle down.) Speech Pattern: Appropriate Voice Loudness: Normal Thought Process: Goal Oriented Thought Disorder: Not Present Hallucinations: Denies Suicidal Ideation: Denies Homicidal Ideation: Denies Insight/Judgement: Poor Sleep: Poorly Appetite: Fair Muscle strength/Tone: Normal Gait/Station: Normal Psychiatric Findings - Problem List ([place] 1, 2,3) (1) Bipolar disorder Current Visit: Yes Status: Chronic Comment: Self reports. (2) Alcohol dependence with uncomplicated withdrawal Current Visit: Yes Status: Acute (3) Nicotine dependence Current Visit: Yes Status: Acute Qualifiers: Nicotine product type: cigarettes Substance use status: in withdrawal Qualified Code(s): F17.213 - Nicotine dependence, cigarettes, with withdrawal (4) Sedative, hypnotic or anxiolytic dependence with withdrawal, uncomplicated Current Visit: Yes Status: Acute - Initial Treatment Plan Initial Treatment Plan: Psychoeducation provided. Detoxification in progress. Seroquel 50mg po daily + Seroquel 100mg qhs. Benefits and side effects discussed. Verbal consent given. Will continue to monitor patient.
[2017-11-10 10:11] LABS: HEMATOCRIT 39.7 % (32.4-45.2); HEMOGLOBIN 12.7 GM/dL (10.7-15.3); MCH 26.1 pg (25.7-33.7); MEAN CELL VOLUME 81.7 fl (80-96); MEAN PLT VOLUME 8.9 fl (7.5-11.1); PLATELET COUNT 167 K/MM3 (134-434); RBC 4.86 M/mm3 (3.60-5.2); RDW 14.7 % (11.6-15.6); WHITE BLOOD COUNT 4.4 K/mm3 (4.0-10.0)
[2017-11-10] MEDS: NICOTINE 14 MG/24 HOURS TOPICAL PATCH TD SCH (10:30)
[2017-11-10] MEDS: LIDOCAINE 5% TOPICAL PATCH TP SCH (10:30)
[2017-11-10] MEDS: PRENATAL VITAMINS W/ FOLIC ACID TABLET (FP) PO SCH (10:32)
[2017-11-10] MEDS: RANITIDINE HCL 150 MG TABLET (FP) PO SCH ×2 (10:32→22:18)
[2017-11-10] MEDS: QUEtiapine FUMARATE 50 MG TABLET PO SCH (10:32)
--- NOTE | 2017-11-10 10:48 | PN ---
S CIWA - CIWA Score Nausea/Vomitin-Mild Nausea/No Vomiting Muscle Tremors: 3 Anxiety: 3 Agitation: 1-Slight > Activity Paroxysmal Sweats: 1-Minimal Palms Moist Orientation: 0-Oriented Tacttile Disturbances: 0-None Auditory Disturbances: 2-Mild Harshness/Frighten Visual Disturbances: 1-Very Mild Sensitivity Headache: 2-Mild CIWA-Ar Total Score: 14 BHS Progress Note (SOAP) Objective: 11/10/17 10:48 Laboratory Tests 11/09/17 11/10/17 11/10/17 22:40 07:00 07:00 WBC 4.4 RBC 4.86 Hgb 12.7 Hct 39.7 MCV 81.7 MCH 26.1 MCHC 32.0 RDW 14.7 Plt Count 167 MPV 8.9 Urine Color Yellow Urine Appearance Turbid Urine pH 5.0 D Ur Specific [place] 1.026 Urine Protein 1+ H Urine Glucose (UA) Negative Urine Ketones Negative Urine Blood 1+ H Urine Nitrite Negative Urine Bilirubin Negative Urine Urobilinogen Negative Ur Leukocyte Esterase 1+ H Urine WBC (Auto) 156 Urine RBC (Auto) 24 Urine Bacteria Few Urine Mucus Many HIV 1&2 Antibody Screen Negative HIV P24 Antigen Negative Vital Signs - 24 hr 11/09/17 11/09/17 11/09/17 14:39 18:49 23:10 Temperature 96 F L 95.3 F L 97.2 F L Pulse Rate 73 78 82 Respiratory 20 18 18 Rate Blood Pressure 144/88 133/78 108/71 11/10/17 11/10/17 11/10/17 00:57 03:30 06:00 Temperature 96.8 F L Pulse Rate 59 L Respiratory 18 18 18 Rate Blood Pressure 145/94 11/10/17 09:37 Temperature 97.3 F L Pulse Rate 71 Respiratory 18 Rate Blood Pressure 106/72 Assessment: 11/10/17 10:48 ONGOING WITHDRAWAL Plan: CONT DETOX PROTOCOL
--- NOTE | 2017-11-10 10:50 | PN ---
S Progress Note Note: NOTE UA-PEPEAT ORDERED CLEAN CATCH
[2017-11-10] MEDS ORDERED: METHADONE HCL 5 MG TABLET ONE (11:13)
[2017-11-10] MEDS ORDERED: METHADONE HCL 40 MG DISPERSABLE TABLET ONE (11:14)
[2017-11-10] MEDS ORDERED: METHADONE 40 MG, METHADONE 5 MG PO ONE (11:15)
[2017-11-10 11:33] LABS: CHLORIDE 103 mmol/L (98-107); POTASSIUM 3.9 mmol/L (3.5-5.1); SODIUM 140 mmol/L (136-145)
[2017-11-10 11:48] LABS: ALBUMIN 3.4 g/dl (3.4-5.0); ALK PHOS 98 U/L (45-117); ANION GAP 9 (8-16); BILIRUBIN,TOTAL 0.5 mg/dL (0.2-1.0); BLOOD UREA NITROGEN 22 mg/dL (7-18); CALCIUM 8.9 mg/dL (8.5-10.1); CO2 28 mmol/L (21-32); CREATININE 0.9 mg/dL (0.55-1.02); GLUCOSE,RANDOM 129 mg/dL (74-106); SGOT/AST 20 U/L (15-37); SGPT/ALT 24 U/L (12-78); TOT PROT 6.7 g/dl (6.4-8.2)
[2017-11-10] MEDS ORDERED: FLU VACCINE QUAD 60 MCG/0.5 ML (MDV 17-18) IM ONE (12:00)
[2017-11-10 17:07] LABS: URINE APPEARANCE CLEAR; URINE BILIRUBIN NEGATIVE (NEGATIVE); URINE BLOOD 1+ (NEGATIVE); URINE COLOR YELLOW; URINE GLUCOSE (UA) NEGATIVE (NEGATIVE); URINE KETONE NEGATIVE (NEGATIVE); URINE LEUK ESTERASE 1+ (NEGATIVE); URINE NITRITE NEGATIVE (NEGATIVE); URINE PROTEIN NEGATIVE (NEGATIVE); URINE UROBILINOGEN NEGATIVE mg/dL (0.2-1.0)
[2017-11-10 17:17] LABS: EPI CELLS RARE /HPF (FEW); URINE BACTERIA FEW /hpf (NONE SEEN); URINE MUCUS RARE
[2017-11-10] MEDS: LIDOCAINE PATCH REMOVAL MC SCH (22:18)
[2017-11-10] MEDS: QUEtiapine FUMARATE 100 MG TABLET (FP) PO SCH (22:18)
[2017-11-10] MEDS: THIAMINE HCL 100 MG TABLET (FP) PO SCH (22:18)
[2017-11-11] MEDS ORDERED: METHADONE HCL 40 MG DISPERSABLE TABLET ONE (05:06)
[2017-11-11] MEDS ORDERED: METHADONE HCL 5 MG TABLET ONE (05:06)
[2017-11-11] MEDS: METHADONE 40 MG, METHADONE 5 MG PO SCH (05:25)
[2017-11-11] MEDS: diazePAM 5 MG TABLET PO PRN ×2 (05:25→17:50)
--- NOTE | 2017-11-11 07:54 | EKG ---
Test Reason : Blood Pressure : / mmHG Vent. Rate : 058 BPM Atrial Rate : 058 BPM P-R Int : 188 ms QRS Dur : 086 ms QT Int : 418 ms P-R-T Axes : 065 022 022 degrees QTc Int : 410 ms SINUS BRADYCARDIA OTHERWISE NORMAL ECG WHEN COMPARED WITH ECG OF 15-JUN-2017 12:54, NO SIGNIFICANT CHANGE WAS FOUND Confirmed by MARIFER WHITMAN MD ([id number]) on 11/11/2017 7:54:07 AM Referred By: Confirmed By:MARIFER WHITMAN MD
[2017-11-11] MEDS: QUEtiapine FUMARATE 50 MG TABLET PO SCH (09:56)
[2017-11-11] MEDS: RANITIDINE HCL 150 MG TABLET (FP) PO SCH ×2 (09:56→22:24)
[2017-11-11] MEDS: diazePAM 5 MG TABLET PO SCH ×2 (09:57→22:24)
[2017-11-11] MEDS: PRENATAL VITAMINS W/ FOLIC ACID TABLET (FP) PO SCH (09:59)
[2017-11-11] MEDS: NICOTINE 14 MG/24 HOURS TOPICAL PATCH TD SCH (11:18)
[2017-11-11] MEDS: LIDOCAINE 5% TOPICAL PATCH TP SCH (11:18)
[2017-11-11] MEDS ORDERED: AZITHROMYCIN 250 MG TABLET PO ONE (14:32)
--- NOTE | 2017-11-11 14:32 | PN ---
S CIWA - CIWA Score Nausea/Vomitin Muscle Tremors: 2 Anxiety: 3 Agitation: 3 Paroxysmal Sweats: 3 Orientation: 0-Oriented Tacttile Disturbances: 1-Very Mild Itch/Numbness Auditory Disturbances: 0-None Visual Disturbances: 0-None Headache: 0-None Present CIWA-Ar Total Score: 14 S Progress Note (SOAP) Subjective: IS, sweats , cough , greenish phlegm Objective: 11/11/17 14:30 Vital Signs Temperature 97.0 F L 11/11/17 13:10 Pulse Rate 80 11/11/17 13:10 Respiratory Rate 18 11/11/17 13:10 Blood Pressure 104/58 11/11/17 13:10 O2 Sat by Pulse Oximetry (%) Laboratory Tests 11/09/17 11/10/17 11/10/17 22:40 07:00 07:00 WBC 4.4 RBC 4.86 Hgb 12.7 Hct 39.7 MCV 81.7 MCH 26.1 MCHC 32.0 RDW 14.7 Plt Count 167 MPV 8.9 Sodium Potassium Chloride Carbon Dioxide Anion Gap BUN Creatinine Creat Clearance w eGFR Random Glucose Calcium Total Bilirubin AST ALT Alkaline Phosphatase Total Protein Albumin Urine Color Yellow Urine Appearance Turbid Urine pH 5.0 D Ur Specific [place] 1.026 Urine Protein 1+ H Urine Glucose (UA) Negative Urine Ketones Negative Urine Blood 1+ H Urine Nitrite Negative Urine Bilirubin Negative Urine Urobilinogen Negative Ur Leukocyte Esterase 1+ H Urine WBC (Auto) 156 Urine RBC (Auto) 24 Ur Epithelial Cells Urine Bacteria Few Urine Mucus Many RPR Titer HIV 1&2 Antibody Screen Negative HIV P24 Antigen Negative 11/10/17 11/10/17 11/10/17 07:00 07:00 16:30 WBC RBC Hgb Hct MCV MCH MCHC RDW Plt Count MPV Sodium 140 Potassium 3.9 Chloride 103 Carbon Dioxide 28 Anion Gap 9 BUN 22 H Creatinine 0.9 Creat Clearance w eGFR > 60 Random Glucose 129 H Calcium 8.9 Total Bilirubin 0.5 D AST 20 ALT 24 Alkaline Phosphatase 98 Total Protein 6.7 Albumin 3.4 Urine Color Yellow Urine Appearance Clear Urine pH 6.0 Ur Specific [place] 1.017 Urine Protein Negative Urine Glucose (UA) Negative Urine Ketones Negative Urine Blood 1+ H Urine Nitrite Negative Urine Bilirubin Negative Urine Urobilinogen Negative Ur Leukocyte Esterase 1+ H Urine WBC (Auto) 3 Urine RBC (Auto) 1 Ur Epithelial Cells Rare Urine Bacteria Few Urine Mucus Rare RPR Titer Nonreactive HIV 1&2 Antibody Screen HIV P24 Antigen lungs -rhonchi Assessment: 11/11/17 14:31 withdrawal sx;s bronchitis Plan: cont. detox increase fluids zpk
[2017-11-11] MEDS: QUEtiapine FUMARATE 100 MG TABLET (FP) PO SCH (22:23)
[2017-11-11] MEDS: THIAMINE HCL 100 MG TABLET (FP) PO SCH (22:24)
[2017-11-11] MEDS: LIDOCAINE PATCH REMOVAL MC SCH (22:48)
[2017-11-12] MEDS ORDERED: METHADONE HCL 5 MG TABLET ONE (04:12)
[2017-11-12] MEDS ORDERED: METHADONE HCL 40 MG DISPERSABLE TABLET ONE (04:12)
[2017-11-12] MEDS: METHADONE 40 MG, METHADONE 5 MG PO SCH (05:21)
[2017-11-12] MEDS: diazePAM 5 MG TABLET PO PRN ×2 (05:21→12:50)
--- NOTE | 2017-11-12 09:59 | PN ---
BHS Progress Note (SOAP) Subjective: sweat tremor restlessness Objective: 11/12/17 09:59 Vital Signs Temperature 97.1 F L 11/12/17 09:34 Pulse Rate 73 11/12/17 09:34 Respiratory Rate 18 11/12/17 09:34 Blood Pressure 127/81 11/12/17 09:34 O2 Sat by Pulse Oximetry (%) Laboratory Last Values WBC 4.4 K/mm3 (4.0-10.0) 11/10/17 07:00 RBC 4.86 M/mm3 (3.60-5.2) 11/10/17 07:00 Hgb 12.7 GM/dL (10.7-15.3) 11/10/17 07:00 Hct 39.7 % (32.4-45.2) 11/10/17 07:00 MCV 81.7 fl (80-96) 11/10/17 07:00 MCH 26.1 pg (25.7-33.7) 11/10/17 07:00 MCHC 32.0 g/dl (32.0-36.0) 11/10/17 07:00 RDW 14.7 % (11.6-15.6) 11/10/17 07:00 Plt Count 167 K/MM3 (134-434) 11/10/17 07:00 MPV 8.9 fl (7.5-11.1) 11/10/17 07:00 Sodium 140 mmol/L (136-145) 11/10/17 07:00 Potassium 3.9 mmol/L (3.5-5.1) 11/10/17 07:00 Chloride 103 mmol/L (98-107) 11/10/17 07:00 Carbon Dioxide 28 mmol/L (21-32) 11/10/17 07:00 Anion Gap 9 (8-16) 11/10/17 07:00 BUN 22 mg/dL (7-18) H 11/10/17 07:00 Creatinine 0.9 mg/dL (0.55-1.02) 11/10/17 07:00 Creat Clearance w eGFR > 60 (>60) 11/10/17 07:00 Random Glucose 129 mg/dL (74-106) H 11/10/17 07:00 Calcium 8.9 mg/dL (8.5-10.1) 11/10/17 07:00 Total Bilirubin 0.5 mg/dL (0.2-1.0) D 11/10/17 07:00 AST 20 U/L (15-37) 11/10/17 07:00 ALT 24 U/L (12-78) 11/10/17 07:00 Alkaline Phosphatase 98 U/L (45-117) 11/10/17 07:00 Total Protein 6.7 g/dl (6.4-8.2) 11/10/17 07:00 Albumin 3.4 g/dl (3.4-5.0) 11/10/17 07:00 Urine Color Yellow 11/10/17 16:30 Urine Appearance Clear 11/10/17 16:30 Urine pH 6.0 (5.0-8.0) 11/10/17 16:30 Ur Specific [place] 1.017 (1.001-1.035) 11/10/17 16:30 Urine Protein Negative (NEGATIVE) 11/10/17 16:30 Urine Glucose (UA) Negative (NEGATIVE) 11/10/17 16:30 Urine Ketones Negative (NEGATIVE) 11/10/17 16:30 Urine Blood 1+ (NEGATIVE) H 11/10/17 16:30 Urine Nitrite Negative (NEGATIVE) 11/10/17 16:30 Urine Bilirubin Negative (NEGATIVE) 11/10/17 16:30 Urine Urobilinogen Negative mg/dL (0.2-1.0) 11/10/17 16:30 Ur Leukocyte Esterase 1+ (NEGATIVE) H 11/10/17 16:30 Urine WBC (Auto) 3 /hpf (3-5) 11/10/17 16:30 Urine RBC (Auto) 1 /hpf (0-3) 11/10/17 16:30 Ur Epithelial Cells Rare /HPF (FEW) 11/10/17 16:30 Urine Bacteria Few /hpf (NONE SEEN) 11/10/17 16:30 Urine Mucus Rare 11/10/17 16:30 RPR Titer Nonreactive (NONREACTIVE) 11/10/17 07:00 HIV 1&2 Antibody Screen Negative 11/10/17 07:00 HIV P24 Antigen Negative 11/10/17 07:00 lab noted Assessment: 11/12/17 09:59 withdrawal sx Plan: continue detox
[2017-11-12] MEDS: QUEtiapine FUMARATE 50 MG TABLET PO SCH (10:16)
[2017-11-12] MEDS: METHOCARBAMOL 500 MG TABLET PO PRN ×2 (10:16→19:55)
[2017-11-12] MEDS: diazePAM 5 MG TABLET PO SCH ×2 (10:16→22:23)
[2017-11-12] MEDS: PRENATAL VITAMINS W/ FOLIC ACID TABLET (FP) PO SCH (10:16)
[2017-11-12] MEDS: RANITIDINE HCL 150 MG TABLET (FP) PO SCH ×2 (10:16→22:23)
[2017-11-12] MEDS: AZITHROMYCIN 250 MG TABLET PO SCH (10:16)
[2017-11-12] MEDS: NICOTINE 14 MG/24 HOURS TOPICAL PATCH TD SCH (10:17)
[2017-11-12] MEDS: LIDOCAINE 5% TOPICAL PATCH TP SCH (11:15)
[2017-11-12] MEDS: QUEtiapine FUMARATE 100 MG TABLET (FP) PO SCH (22:23)
[2017-11-12] MEDS: THIAMINE HCL 100 MG TABLET (FP) PO SCH (22:23)
[2017-11-12] MEDS: LIDOCAINE PATCH REMOVAL MC SCH (22:23)
[2017-11-13] MEDS ORDERED: METHADONE HCL 40 MG DISPERSABLE TABLET ONE (04:23)
[2017-11-13] MEDS ORDERED: METHADONE HCL 5 MG TABLET ONE (04:23)
[2017-11-13] MEDS: METHADONE 40 MG, METHADONE 5 MG PO SCH (05:43)
[2017-11-13 06:47] VITALS: TEMP 97.3
--- NOTE | 2017-11-13 08:32 | DS ---
[facility] Detox Discharge Summary Admission Date: 11/09/17 Discharge Date: 11/13/17 - History Present History: Alcohol Dependence, MMTP Pertinent Past History: HTN, asthma, insomnia, depression and axniety, nicotine dependence - Physical Exam Results Vital Signs: Vital Signs Temperature 97.3 F L 11/13/17 06:46 Pulse Rate 84 11/13/17 06:46 Respiratory Rate 18 11/13/17 06:46 Blood Pressure 122/81 11/13/17 06:46 O2 Sat by Pulse Oximetry (%) Pertinent Admission Physical Exam Findings: withdrawal sx - Treatment Hospital Course: Detox Protocol Followed, Detoxed Safely, Responded well, Discharged Condition Good, Rehab Referral Accepted Patient has Accepted a Rehab Referral to: No - Medication Discharge Medications: Ambulatory Orders Quetiapine Fumarate [Seroquel -] 200 mg PO HS 11/09/17 Albuterol Sulfate Inhaler - [Ventolin HFA Inhaler -] 0 puff IH Q4H PRN #1 inhaler 11/13/17 - Diagnosis (1) Seizure Current Visit: No Status: Active (2) MMTP Current Visit: No Status: Chronic (3) Bipolar II disorder Current Visit: Yes Status: Suspected (4) Alcohol dependence with uncomplicated withdrawal Current Visit: Yes Status: Chronic (5) Obese Current Visit: No Status: Chronic Qualifiers: Obesity type: unspecified obesity type Qualified Code(s): E66.01 - Morbid ( severe) obesity due to excess calories (6) Nicotine dependence Current Visit: Yes Status: Acute Qualifiers: Nicotine product type: cigarettes Substance use status: in withdrawal Qualified Code(s): F17.213 - Nicotine dependence, cigarettes, with withdrawal (7) Opioid dependence on agonist therapy Current Visit: No Status: Acute (8) Asthma Current Visit: Yes Status: Chronic Qualifiers: Asthma severity: mild Asthma persistence: intermittent Asthma complication type: uncomplicated Qualified Code(s): J45.20 - Mild intermittent asthma, uncomplicated (9) Sedative, hypnotic or anxiolytic dependence with withdrawal, uncomplicated Current Visit: Yes Status: Chronic (10) GERD (gastroesophageal reflux disease) Current Visit: Yes Status: Chronic Qualifiers: Esophagitis presence: without esophagitis Qualified Code(s): K21.9 - Gastro -esophageal reflux disease without esophagitis (11) Bipolar disorder Current Visit: Yes Status: Chronic (12) Bronchitis Current Visit: Yes Status: Acute - AMA Did Patient Leave Against Medical Advice: No
[2017-11-13] MEDS: AZITHROMYCIN 250 MG TABLET PO SCH (09:19)
[2017-11-13] MEDS: RANITIDINE HCL 150 MG TABLET (FP) PO SCH (09:19)
[2017-11-13] MEDS: QUEtiapine FUMARATE 50 MG TABLET PO SCH (09:19)
[2017-11-13] MEDS: METHOCARBAMOL 500 MG TABLET PO PRN (09:19)
[2017-11-13] MEDS: PRENATAL VITAMINS W/ FOLIC ACID TABLET (FP) PO SCH (09:19)
[2017-11-13 09:24] VITALS: BP 131/63; PULSE 20
[2017-11-13] MEDS: LIDOCAINE 5% TOPICAL PATCH TP SCH (09:24)
[2017-11-13] MEDS ORDERED: diazePAM 5 MG TABLET PO SCH (10:00)
== END 2017-11-13 09:47 | disposition home or self-care (01) | DRG 773 ==
LOC: YASAS 11:24 → Y6N 18:06
PROVIDERS: ADMIT Internal Medicine; ATTEND Internal Medicine
PROC: HZ2ZZZZ Detoxification Services for Substance Abuse Treatment (ICD-10-PCS; principal; 2017-11-09)
DX: F11.20 Opioid dependence, uncomplicated (principal); F13.230 Sedative, hypnotic or anxiolytic dependence with withdrawal, uncomplicated; F10.230 Alcohol dependence with withdrawal, uncomplicated; F17.210 Nicotine dependence, cigarettes, uncomplicated; F31.9 Bipolar disorder, unspecified; F31.81 Bipolar II disorder; J40 Bronchitis, not specified as acute or chronic; J45.20 Mild intermittent asthma, uncomplicated; E66.9 Obesity, unspecified; Z68.34 Body mass index [BMI] 34.0-34.9, adult; Z86.69 Personal history of other diseases of the nervous system and sense organs
CPT/HCPCS: 36415; 71046-TC; 80053; 81003; 81015; 85027; 86593; 87389; 90688; 93005; 93010; 94640

== ENCOUNTER 2018-12-17 15:22 | Inpatient (IN) | payer OTHER ==
[2018-12-17 18:31] VITALS: BMI 35.5
[2018-12-17] MEDS ORDERED: MELATONIN 5 MG TABLETS PO PRN (22:00)
--- NOTE | 2018-12-17 22:54 | HP ---
CIWA Score Nausea/Vomitin-Mild Nausea/No Vomiting Muscle Tremors: 4-Moderate,w/Arms Extend Anxiety: 3 Agitation: 3 Paroxysmal Sweats: 2 Orientation: 0-Oriented Tacttile Disturbances: 0-None Auditory Disturbances: 0-None Visual Disturbances: 0-None Headache: 4-Moderately Severe CIWA-Ar Total Score: 17 - Admission Criteria [facility] Guidelines: Admission for Medically Managed Detox: Requires at least one of the followin. CIWA greater than 12 2. Seizures within the past 24 hours 3. Delirium tremens within the past 24 hours 4. Hallucinations within the past 24 hours 5. Acute intervention needed for co occurring medical disorder 6. Acute intervention needed for co occurring psychiatric disorder 7. Severe withdrawal that cannot be handled at a lower level of care (continued vomiting, continued diarrhea, abnormal vital signs) requiring intravenous medication and/or fluids 8. Admission ROS S - HPI Chief Complaint: Alcohol and heroine dependence seeking admission to detox. Patient is on Methadone 60mg tablet at [facility]. Dose is yet to be confirmed Allergies/Adverse Reactions: Allergies Allergy/AdvReac Type Severity Reaction Status Date / Time haloperidol [From Haldol] AdvReac stiffness Verified 12/17/18 20:10 haloperidol lactate AdvReac stiffness Verified 12/17/18 20:10 [From Haldol] History of Present Illness: 58 years old male with a long history of alcohol and drug dependence is seeking admission to detox. Patient is on prescription Alprazolam 2 mg tablet oral daily and zolpidem 10mg tablet oral daily with active refills dispensed. Patient is to be detoxed with Librium and she is aware that Librium will taper off Zanax use. Patient is to notify her prescribing physician about her recent detoxification so that he will adjust or taper off her benzo prescriptions. Patient verbalized understanding of instructions. She has history of asthma, hypertension, bronchitis, seizure, GERD, depression and anxiety. She denies suicide attempt and suicidal ideation at this time. She is on Methadone 60 mg tablet oral daily at a [facility]. Dose is yet to be confirmed by the nurse. Exam Limitations: Physical Impairment - Ebola screening Have you traveled outside of the country in the last 21 days: No Have you had contact with anyone from an Ebola affected area: No Have you been sick,other than usual withdrawal symptoms: No Do you have a fever: No - Review of Systems Constitutional: Chills, Loss of Appetite, Changes in sleep EENT: reports: Sinus Pressure Respiratory: reports: No Symptoms reported Cardiac: reports: No Symptoms Reported GI: reports: Nausea, Poor Appetite, Poor Fluid Intake, Vomiting (x 2), Abdominal cramping : reports: No Symptoms Reported Musculoskeletal: reports: Back Pain Integumentary: reports: Dryness, Flushing Neuro: reports: No Symptoms reported, Headache, Tremors Endocrine: reports: No Symptoms Reported Hematology: reports: No Symptoms Reported Psychiatric: reports: Anxious, Depressed Other Systems: Reviewed and Negative Patient History - Patient Medical History Hx Anemia: No Hx Asthma: Yes (Pt is on MDI) Hx Chronic Obstructive Pulmonary Disease (COPD): No Hx Cancer: No Hx Cardiac Disorders: No Hx Congestive Heart Failure: No Hx Hypertension: Yes (Not on medication) Hx Hypercholesterolemia: No Hx Pacemaker: No HX Cerebrovascular Accident: No Hx Seizures: No Hx Dementia: No Hx Diabetes: No Hx Gastrointestinal Disorders: Yes (GERD- TUMS) Hx Liver Disease: No Hx Genitourinary Disorders: No Hx Sexually Transmitted Disorders: No Hx Renal Disease (ESRD): No Hx Thyroid Disease: No Hx Human Immunodeficiency Virus (HIV): No (NEGATIVE 2019) Hx Hepatitis C: No Hx Depression: Yes (SEROQUEL) Hx Suicide Attempt: No Hx Bipolar Disorder: Yes Hx Schizophrenia: No Other Medical History: ANXIETY- XANAX - Patient Surgical History Past Surgical History: Yes Hx Neurologic Surgery: No Hx Cataract Extraction: No Hx Cardiac Surgery: No Hx Lung Surgery: No Hx Breast Surgery: No Hx Breast Biopsy: No Hx Abdominal Surgery: No Hx Appendectomy: No Hx Cholecystectomy: No Hx Genitourinary Surgery: No Hx Section: No Hx Orthopedic Surgery: Yes (chris. TKR IN 2013) Hx Hysterectomy: No Other Surgical History: removal of benign cyst, left breast/left hand Anesthesia Reaction: No - PPD History Previous Implant?: Yes Documented Results: Negative w/o proof Date: 06/17/17 Results: 0 MM PPD to be Administered?: Yes - Reproductive History Patient is a Female of Child Bearing Age (11 -55 yrs old): Yes Last Menstrual Period: 02/26/12 LMP comment: MENOPAUSAL Patient : No - Smoking Cessation Smoking history: Current every day smoker Have you smoked in the past 12 months: Yes Aproximately how many cigarettes per day: 10 Cigars Per Day: 0 Hx Chewing Tobacco Use: No Initiated information on smoking cessation: Yes 'Breaking Loose' booklet given: 12/17/18 - Substance & Tx. History Hx Alcohol Use: Yes Hx Substance Use: Yes Substance Use Type: Alcohol, Cocaine, Heroin, Marijuana, Opiates Hx Substance Use Treatment: Yes ([facility]) - Substances Abused Alcohol Route: Oral Frequency: Daily Amount used: LIQUOR- 2 PINTS, BEER- 1 (40oz) Age of first use: 17 Date of Last Use: 12/17/18 Alprazolam (Xanax) Route: Oral Frequency: Daily Amount used: 6mg Age of first use: 56 Date of Last Use: 12/17/18 Family Disease History - Family Disease History Family Disease History: Other: Father (no contact), Mother (MENTAL ILLNESS/ ) Admission Physical Exam S - Vital Signs Vital Signs: Vital Signs - 24 hr 12/17/18 18:29 Temperature 97.6 F Pulse Rate 81 Respiratory 18 Rate Blood Pressure 148/86 - Physical General Appearance: Yes: Moderate Distress, Tremorous, Anxious HEENTM: Yes: EOMI, Normal ENT Inspection, Normal Voice, SATINDER Respiratory: Yes: Lungs Clear, Normal Breath Sounds, No Respiratory Distress Neck: Yes: Supple Breast: Yes: Breast Exam Deferred Cardiology: Yes: Regular Rhythm, Regular Rate Abdominal: Yes: Normal Bowel Sounds Genitourinary: Yes: Within Normal Limits Back: Yes: Normal Inspection Extremities: Yes: Tremors Neurological: Yes: Alert, Normal Mood/Affect Integumentary: Yes: Warm Lymphatic: Yes: Within Normal Limits - Diagnostic (1) Seizure Current Visit: Yes Status: Acute (2) Bronchitis Current Visit: Yes Status: Chronic (3) Nicotine dependence Current Visit: Yes Status: Acute Qualifiers: Nicotine product type: cigarettes Substance use status: uncomplicated Qualified Code(s): F17.210 - Nicotine dependence, cigarettes, uncomplicated (4) Opioid dependence on agonist therapy Current Visit: Yes Status: Chronic (5) Alcohol dependence with uncomplicated withdrawal Current Visit: Yes Status: Chronic (6) Asthma Current Visit: Yes Status: Chronic Qualifiers: Asthma severity: mild Asthma persistence: intermittent Asthma complication type: uncomplicated Qualified Code(s): J45.20 - Mild intermittent asthma, uncomplicated (7) GERD (gastroesophageal reflux disease) Current Visit: Yes Status: Chronic Qualifiers: Esophagitis presence: without esophagitis Qualified Code(s): K21.9 - Gastro -esophageal reflux disease without esophagitis (8) Sedative, hypnotic or anxiolytic dependence with withdrawal, uncomplicated Current Visit: Yes Status: Chronic Cleared for Admission [facility] - Detox or Rehab [facility] Level of Care: Medically Managed Detox Regimen/Protocol: Librium [facility] Breath Alcohol Content Breath Alcohol Content: 0 Urine Pregancy Test - Result Urine Test Results: Negative- NO Line Present Urine Drug Screen - Results Drug Screen Negative: No Urine Drug Screen Results: THC-Marijuana, OPI-Opiates, MET-Methamphetamine, BZO- Benzodiazepines, MTD-Methadone, OXY-Oxycodone, FEN-Fentanyl, BUP-Suboxone Inpatient Rehab Admission - Rehab Decision to Admit Inpatient rehab admission?: No
[2018-12-17] MEDS ORDERED: MAGNESIUM HYDROX 2400MG/30ML ORAL SUSPENSION 30 ML CUP PO PRN (23:17)
[2018-12-17] MEDS ORDERED: P-EPHED 60MG/TRIPROLIDI 2.5MG TABLET PO PRN (23:17)
[2018-12-17] MEDS ORDERED: guaiFENesin/D-METHORPHAN HB 10 ML UNIT-DOSE CUPS PO PRN (23:17)
[2018-12-17] MEDS ORDERED: LOPERAMIDE HCL 2 MG CAPSULE PO PRN (23:17)
[2018-12-17] MEDS ORDERED: MENTHOL/PHENOL 1 EACH UD MM PRN (23:17)
[2018-12-17] MEDS ORDERED: MAG HYDROX/AL HYDROX/SIMETH 30 ML UNIT-DOSE CUP PO PRN (23:17)
[2018-12-17] MEDS ORDERED: IBUPROFEN 400 MG TABLET (FP) PO PRN (23:17)
[2018-12-17] MEDS ORDERED: ACETAMINOPHEN 325 MG TABLET (FP) PO PRN (23:17)
[2018-12-17] MEDS ORDERED: chlordiazePOXIDE HCL 25 MG CAPSULE PO PRN (23:17)
[2018-12-17] MEDS ORDERED: NICOTINE POLACRILEX 2 MG GUM BC PRN (23:17)
[2018-12-17] MEDS ORDERED: MAGNESIUM CITRATE 300 ML BOTTLE PO PRN (23:17)
[2018-12-17] MEDS ORDERED: ALBUTEROL SO4 8 GM HFA INHALER IH PRN (23:19)
[2018-12-17] MEDS ORDERED: TUBERCULIN PPD 5 TU/0.1ML VIAL ID ONE (23:47)
[2018-12-17] MEDS: chlordiazePOXIDE HCL 25 MG CAPSULE PO SCH (23:58)
[2018-12-18] MEDS: chlordiazePOXIDE HCL 25 MG CAPSULE PO SCH ×4 (06:26→22:11)
[2018-12-18] MEDS ORDERED: METHADONE HCL 10 MG TABLET PO SCH (09:30)
[2018-12-18] MEDS: NICOTINE 14 MG/24 HOURS TOPICAL PATCH TD SCH (10:10)
[2018-12-18] MEDS: PRENATAL VITAMINS W/ FOLIC ACID TABLET (FP) PO SCH (10:10)
[2018-12-18] MEDS ORDERED: METHADONE HCL 10 MG TABLET ONE (10:11)
[2018-12-18] MEDS ORDERED: METHADONE HCL 40 MG DISPERSABLE TABLET ONE (10:11)
[2018-12-18] MEDS: METHADONE 40 MG, METHADONE 20 MG PO SCH (10:14)
[2018-12-18 13:26] LABS: ALK PHOS 88 U/L (45-117); ANION GAP 5 MMOL/L (8-16); BILIRUBIN,TOTAL 0.3 mg/dL (0.2-1); BLOOD UREA NITROGEN 16 mg/dL (7-18); CALCIUM 8.7 mg/dL (8.5-10.1); CHLORIDE 102 mmol/L (98-107); CO2 34 mmol/L (21-32); CREATININE 1.1 mg/dL (0.55-1.3); GLUCOSE,RANDOM 121 mg/dL (74-106); POTASSIUM 3.8 mmol/L (3.5-5.1); SGOT/AST 23 U/L (15-37); SGPT/ALT 58 U/L (13-61); SODIUM 141 mmol/L (136-145); TOT PROT 7.2 g/dl (6.4-8.2)
[2018-12-18 14:03] LABS: HEMATOCRIT 35.8 % (32.4-45.2); HEMOGLOBIN 11.9 GM/dL (10.7-15.3); MCHC 33.3 g/dl (32.0-36.0); MEAN CELL VOLUME 78.2 fl (80-96); MEAN PLT VOLUME 8.5 fl (7.5-11.1); PLATELET COUNT 254 K/MM3 (134-434); RBC 4.58 M/mm3 (3.60-5.2); RDW 15.4 % (11.6-15.6); WHITE BLOOD COUNT 5.8 K/mm3 (4.0-10.0)
--- NOTE | 2018-12-18 15:21 | CONSULT ---
[facility] Psychiatric Consult - Data Date of interview: 12/18/18 Admission source: [facility] Identifying data: This is one of multiple admissions to [facility] for this 58 y/ o female self-referred for detoxification treatment (alcohol, opioid). Evaluated on . Patient is , a mother of two, domiciled, unemployed and supported on SSI/SSD benefits. Substance Abuse History: Confirmed by the patient in this interview. Details in current [facility] report : Smoking history: Current every day smoker. Have you smoked in the past 12 months: Yes. Aproximately how many cigarettes per day: 10. Cigars Per Day: 0. Hx Chewing Tobacco Use: No. Initiated information on smoking cessation: Yes. 'Breaking Loose' booklet given: 12/17/18. - Substance & Tx. History. Hx Alcohol Use: Yes. Hx Substance Use: Yes. Substance Use Type : Alcohol, Cocaine, Heroin, Marijuana, Opiates. Hx Substance Use Treatment: Yes ([facility]). - Substances Abused. Alcohol. Route: Oral. Frequency: Daily. Amount used: LIQUOR- 2 PINTS, BEER- 1 (40oz). Age of first use: 17. Date of Last Use: 12/17/18. Alprazolam (Xanax). Route: Oral. Frequency: Daily. Amount used: 6mg. Age of first use: 56. Date of Last Use: 12/17/18 Medical History: Bronchial asthma, hypertension, seizure disorder, GERD and a history of bilateral knee replacement. Psychiatric History: Patient endorses one psychiatric hospitalization, two years ago, at the [facility] in the [place]. Diagnosed with Bipolar Disorder. Treated with seroquel 100 mg/am + 200 mg/hs. Sees a psychiatrist for medication management at one of the [facility] ([address] [place] [address]) in the [place]. Ms Henry is on methadone maintenance (60 mg/day). Denies history of suicide attempts. Physical/Sexual Abuse/Trauma History: Not discussed. Patient declines. Additional Comment: Urine Drug Screen Results: THC-Marijuana, OPI-Opiates, MET- Methamphetamine, BZO-Benzodiazepines, MTD-Methadone, OXY-Oxycodone, FEN-Fentanyl , BUP-Suboxone. Noted. Mental Status Exam - Mental Status Exam Alert and Oriented to: Time, Place, Person Cognitive Function: Good Patient Appearance: Well Groomed (obese) Mood: Hostile, Nervous, Withdrawn, Irritable Affect: Mood Congruent, Constricted Patient Behavior: Fatigued, Guarded Speech Pattern: Clear, Appropriate Voice Loudness: Normal Thought Process: Intact, Goal Oriented Thought Disorder: Not Present Hallucinations: Denies Suicidal Ideation: Denies Homicidal Ideation: Denies Insight/Judgement: Poor Sleep: Poorly Appetite: Good Muscle strength/Tone: Normal Gait/Station: Normal Psychiatric Findings - Problem List ([place] 1, 2,3) (1) Alcohol dependence with uncomplicated withdrawal Current Visit: Yes Status: Acute (2) Sedative, hypnotic or anxiolytic dependence with withdrawal, uncomplicated Current Visit: Yes Status: Acute (3) Opioid dependence on agonist therapy Current Visit: Yes Status: Chronic (4) Marihuana dependence Current Visit: Yes Status: Chronic (5) Nicotine dependence Current Visit: Yes Status: Chronic Qualifiers: Nicotine product type: cigarettes Substance use status: uncomplicated Qualified Code(s): F17.210 - Nicotine dependence, cigarettes, uncomplicated (6) Bipolar disorder Current Visit: Yes Status: Chronic Comment: According to self-reported history. (7) Insomnia Current Visit: Yes Status: Chronic - Initial Treatment Plan Initial Treatment Plan: Psychoeducation. Sleep hygiene. Detoxification in progress. Seroquel 100 mg po bid. Side effects/benefits discussed with the patient. Consent (verbal) given. Observation.
--- NOTE | 2018-12-18 15:25 | PN ---
[facility] CIWA - CIWA Score Nausea/Vomitin-Mild Nausea/No Vomiting Muscle Tremors: 3 Anxiety: 3 Agitation: 4-Moderately Restless Paroxysmal Sweats: 3 Orientation: 0-Oriented Tacttile Disturbances: 0-None Auditory Disturbances: 0-None Visual Disturbances: 0-None Headache: 0-None Present CIWA-Ar Total Score: 14 S Progress Note (SOAP) Subjective: nausea shakes sweats Objective: 12/18/18 15:23 A & O X 3 Gait steady Irritable Vital Signs Temperature 97.7 F 12/18/18 14:20 Pulse Rate 69 12/18/18 14:20 Respiratory Rate 18 12/18/18 14:20 Blood Pressure 141/92 12/18/18 14:20 O2 Sat by Pulse Oximetry (%) Laboratory Last Values WBC 5.8 K/mm3 (4.0-10.0) 12/18/18 10:00 RBC 4.58 M/mm3 (3.60-5.2) 12/18/18 10:00 Hgb 11.9 GM/dL (10.7-15.3) 12/18/18 10:00 Hct 35.8 % (32.4-45.2) 12/18/18 10:00 MCV 78.2 fl (80-96) L 12/18/18 10:00 MCH 26.0 pg (25.7-33.7) 12/18/18 10:00 MCHC 33.3 g/dl (32.0-36.0) 12/18/18 10:00 RDW 15.4 % (11.6-15.6) 12/18/18 10:00 Plt Count 254 K/MM3 (134-434) D 12/18/18 10:00 MPV 8.5 fl (7.5-11.1) 12/18/18 10:00 Sodium 141 mmol/L (136-145) 12/18/18 10:00 Potassium 3.8 mmol/L (3.5-5.1) 12/18/18 10:00 Chloride 102 mmol/L (98-107) 12/18/18 10:00 Carbon Dioxide 34 mmol/L (21-32) H 12/18/18 10:00 Anion Gap 5 MMOL/L (8-16) L 12/18/18 10:00 BUN 16 mg/dL (7-18) 12/18/18 10:00 Creatinine 1.1 mg/dL (0.55-1.3) 12/18/18 10:00 Creat Clearance w eGFR 51.20 (>60) 12/18/18 10:00 Random Glucose 121 mg/dL (74-106) H 12/18/18 10:00 Calcium 8.7 mg/dL (8.5-10.1) 12/18/18 10:00 Total Bilirubin 0.3 mg/dL (0.2-1) 12/18/18 10:00 AST 23 U/L (15-37) 12/18/18 10:00 ALT 58 U/L (13-61) 12/18/18 10:00 Alkaline Phosphatase 88 U/L (45-117) 12/18/18 10:00 Total Protein 7.2 g/dl (6.4-8.2) 12/18/18 10:00 Albumin 3.0 g/dl (3.4-5.0) L 12/18/18 10:00 RPR Titer Nonreactive (NONREACTIVE) 12/18/18 10:00 labs noted Assessment: 12/18/18 15:24 withdrawal sx elevated blood glucose in the abscence of dx DM Plan: continue detox increase water hydration
[2018-12-18] MEDS: THIAMINE HCL 100 MG TABLET (FP) PO SCH (22:11)
[2018-12-18] MEDS: QUEtiapine FUMARATE 200 MG TABLET PO SCH (22:11)
[2018-12-19] MEDS ORDERED: METHADONE HCL 10 MG TABLET ONE (04:37)
[2018-12-19] MEDS ORDERED: METHADONE HCL 40 MG DISPERSABLE TABLET ONE (04:37)
[2018-12-19] MEDS: METHADONE 40 MG, METHADONE 20 MG PO SCH (05:37)
[2018-12-19] MEDS: chlordiazePOXIDE HCL 25 MG CAPSULE PO SCH ×3 (05:37→17:20)
[2018-12-19] MEDS ORDERED: ONDANSETRON *ODT* 4 MG TABLET SL PRN (10:07)
[2018-12-19] MEDS: PRENATAL VITAMINS W/ FOLIC ACID TABLET (FP) PO SCH (10:22)
[2018-12-19] MEDS: NICOTINE 14 MG/24 HOURS TOPICAL PATCH TD SCH (10:23)
--- NOTE | 2018-12-19 15:33 | PN ---
[facility] CIWA - CIWA Score Nausea/Vomitin-Mild Nausea/No Vomiting Muscle Tremors: 3 Anxiety: 3 Agitation: 3 Paroxysmal Sweats: 3 Orientation: 0-Oriented Tacttile Disturbances: 0-None Auditory Disturbances: 0-None Visual Disturbances: 0-None Headache: 0-None Present CIWA-Ar Total Score: 13 S Progress Note (SOAP) Subjective: Nausea Objective: 12/19/18 15:31 Last Vital Signs Temp Pulse Resp BP Pulse Ox 97.9 F 87 18 113/72 12/19/18 10:00 12/19/18 10:00 12/19/18 10:00 12/19/18 10:00 Laboratory Tests 12/18/18 12/18/18 12/18/18 10:00 10:00 10:00 WBC 5.8 RBC 4.58 Hgb 11.9 Hct 35.8 MCV 78.2 L MCH 26.0 MCHC 33.3 RDW 15.4 Plt Count 254 D MPV 8.5 Sodium 141 Potassium 3.8 Chloride 102 Carbon Dioxide 34 H Anion Gap 5 L BUN 16 Creatinine 1.1 Creat Clearance w eGFR 51.20 Random Glucose 121 H Calcium 8.7 Total Bilirubin 0.3 AST 23 ALT 58 Alkaline Phosphatase 88 Total Protein 7.2 Albumin 3.0 L RPR Titer Nonreactive Labs reviewed: GFR 51.20, glucose 121 Assessment: 12/19/18 15:35 Withdrawal symptoms Noted with ISI and hyperglycemia Plan: Continue detox ISI: encouraged PO water hydration, repeat BMP in AM Hyperglycemia: could be related to withdrawal, repeat fasting glucose in AM
[2018-12-19] MEDS: THIAMINE HCL 100 MG TABLET (FP) PO SCH (22:05)
[2018-12-19] MEDS: QUEtiapine FUMARATE 200 MG TABLET PO SCH (22:05)
[2018-12-19] MEDS: chlordiazePOXIDE 5 MG CAPSULE PO SCH (22:05)
[2018-12-20] MEDS ORDERED: METHADONE HCL 10 MG TABLET ONE (02:46)
[2018-12-20] MEDS ORDERED: METHADONE HCL 40 MG DISPERSABLE TABLET ONE (02:46)
[2018-12-20] MEDS: METHADONE 40 MG, METHADONE 20 MG PO SCH (05:46)
[2018-12-20] MEDS: chlordiazePOXIDE 5 MG CAPSULE PO SCH ×3 (05:46→17:25)
[2018-12-20 09:53] LABS: ANION GAP 6 MMOL/L (8-16); BLOOD UREA NITROGEN 24 mg/dL (7-18); CALCIUM 8.5 mg/dL (8.5-10.1); CHLORIDE 102 mmol/L (98-107); CO2 30 mmol/L (21-32); CREATININE 0.8 mg/dL (0.55-1.3); GLUCOSE,RANDOM 109 mg/dL (74-106); POTASSIUM 4.1 mmol/L (3.5-5.1); SODIUM 138 mmol/L (136-145)
[2018-12-20] MEDS: PRENATAL VITAMINS W/ FOLIC ACID TABLET (FP) PO SCH (10:03)
[2018-12-20] MEDS: NICOTINE 14 MG/24 HOURS TOPICAL PATCH TD SCH (10:03)
--- NOTE | 2018-12-20 11:15 | PN ---
BHS Progress Note (SOAP) Subjective: sweats irritable Objective: 12/20/18 11:14 Vital Signs Temperature 98.1 F 12/20/18 09:32 Pulse Rate 108 H 12/20/18 09:32 Respiratory Rate 20 12/20/18 09:32 Blood Pressure 106/72 12/20/18 09:32 O2 Sat by Pulse Oximetry (%) aaox3 ambulating no acute distress Assessment: 12/20/18 11:15 withdrawal sx Plan: continue detox increase fluids d/c in am
[2018-12-20] MEDS: chlordiazePOXIDE HCL 10 MG CAPSULE PO SCH (22:05)
[2018-12-20] MEDS: THIAMINE HCL 100 MG TABLET (FP) PO SCH (22:05)
[2018-12-20] MEDS: QUEtiapine FUMARATE 200 MG TABLET PO SCH (22:05)
[2018-12-21] MEDS ORDERED: METHADONE HCL 40 MG DISPERSABLE TABLET ONE (04:17)
[2018-12-21] MEDS ORDERED: METHADONE HCL 10 MG TABLET ONE (04:17)
[2018-12-21] MEDS: chlordiazePOXIDE HCL 10 MG CAPSULE PO SCH (05:20)
[2018-12-21] MEDS: METHADONE 40 MG, METHADONE 20 MG PO SCH (05:20)
[2018-12-21 06:16] VITALS: BP 99/76; PULSE 97; TEMP 97.7
--- NOTE | 2018-12-21 08:42 | DS ---
[facility] Detox Discharge Summary Admission Date: 12/17/18 Discharge Date: 12/21/18 - History Present History: Alcohol Dependence, Cannabis Dependence, Opioid Dependence, Sedative Dependence - Physical Exam Results Vital Signs: Vital Signs Temperature 97.7 F 12/21/18 06:00 Pulse Rate 97 H 12/21/18 06:00 Respiratory Rate 18 12/21/18 06:00 Blood Pressure 99/76 12/21/18 06:00 O2 Sat by Pulse Oximetry (%) - Treatment Hospital Course: Detox Protocol Followed, Detoxed Safely, Responded well, Discharged Condition Good, Rehab Referral Accepted - Medication Discharge Medications: Ambulatory Orders Quetiapine Fumarate [Seroquel -] 200 mg PO HS 11/09/17 Albuterol Sulfate Inhaler - [Ventolin HFA Inhaler -] 0 puff IH Q4H PRN #1 inhaler 11/13/17 - Diagnosis (1) Alcohol dependence with uncomplicated withdrawal Current Visit: Yes Status: Chronic (2) Sedative, hypnotic or anxiolytic dependence with withdrawal, uncomplicated Current Visit: Yes Status: Chronic (3) Seizure Current Visit: Yes Status: Acute (4) Asthma Current Visit: Yes Status: Chronic Qualifiers: Asthma severity: mild Asthma persistence: intermittent Asthma complication type: uncomplicated Qualified Code(s): J45.20 - Mild intermittent asthma, uncomplicated (5) Bipolar disorder Current Visit: Yes Status: Chronic (6) GERD (gastroesophageal reflux disease) Current Visit: Yes Status: Chronic Qualifiers: Esophagitis presence: without esophagitis Qualified Code(s): K21.9 - Gastro -esophageal reflux disease without esophagitis (7) Insomnia Current Visit: Yes Status: Chronic (8) [place] dependence Current Visit: Yes Status: Chronic (9) Nicotine dependence Current Visit: Yes Status: Chronic Qualifiers: Nicotine product type: cigarettes Substance use status: uncomplicated Qualified Code(s): F17.210 - Nicotine dependence, cigarettes, uncomplicated (10) Opioid dependence on agonist therapy Current Visit: Yes Status: Chronic (11) MMTP Current Visit: Yes Status: Chronic (12) Obese Current Visit: No Status: Chronic Qualifiers: Obesity type: unspecified obesity type Qualified Code(s): E66.01 - Morbid ( severe) obesity due to excess calories (13) Bipolar II disorder Current Visit: No Status: Suspected
== END 2018-12-21 09:19 | disposition home or self-care (01) | DRG 773 ==
LOC: YASAS 15:22 → Y6N 23:24
PROVIDERS: ADMIT Surgery; ATTEND Surgery
PROC: HZ2ZZZZ Detoxification Services for Substance Abuse Treatment (ICD-10-PCS; principal; 2018-12-17)
DX: F10.230 Alcohol dependence with withdrawal, uncomplicated (principal); F13.230 Sedative, hypnotic or anxiolytic dependence with withdrawal, uncomplicated; F12.20 Cannabis dependence, uncomplicated; F11.20 Opioid dependence, uncomplicated; F17.210 Nicotine dependence, cigarettes, uncomplicated; F31.81 Bipolar II disorder; F41.9 Anxiety disorder, unspecified; R56.9 Unspecified convulsions; J45.20 Mild intermittent asthma, uncomplicated; K21.9 Gastro-esophageal reflux disease without esophagitis; J40 Bronchitis, not specified as acute or chronic; E66.9 Obesity, unspecified; Z68.35 Body mass index [BMI] 35.0-35.9, adult; R73.9 Hyperglycemia, unspecified; N17.9 Acute kidney failure, unspecified; Z88.8 Allergy status to other drugs, medicaments and biological substances; Z96.653 Presence of artificial knee joint, bilateral
CPT/HCPCS: 36415; 80048; 80053; 85027; 86593

== ENCOUNTER 2019-03-07 12:43 | Inpatient (IN) | payer OTHER ==
[2019-03-07 15:34] VITALS: BMI 36.3
--- NOTE | 2019-03-07 18:09 | HP ---
CIWA Score Nausea/Vomitin Muscle Tremors: 3 Anxiety: 3 Agitation: 3 Paroxysmal Sweats: 3 (Increased facial moisture) Orientation: 0-Oriented Tacttile Disturbances: 0-None Auditory Disturbances: 0-None Visual Disturbances: 0-None Headache: 0-None Present CIWA-Ar Total Score: 15 - Admission Criteria OASAS Guidelines: Admission for Medically Managed Detox: Requires at least one of the followin. CIWA greater than 12 2. Seizures within the past 24 hours 3. Delirium tremens within the past 24 hours 4. Hallucinations within the past 24 hours 5. Acute intervention needed for co occurring medical disorder 6. Acute intervention needed for co occurring psychiatric disorder 7. Severe withdrawal that cannot be handled at a lower level of care (continued vomiting, continued diarrhea, abnormal vital signs) requiring intravenous medication and/or fluids 8. Patient presents the following: CIWA greater than 12 Admission Criteria Met: Admission criteria met Admission ROS [facility] Chief Complaint: States withdrawing from alcohol and benzo's Allergies/Adverse Reactions: Allergies Allergy/AdvReac Type Severity Reaction Status Date / Time haloperidol [From Haldol] AdvReac stiffness Verified 03/07/19 15:26 haloperidol lactate AdvReac stiffness Verified 03/07/19 15:25 [From Haldol] History of Present Illness: Here for alcohol and Xanax detox. Alcohol use began at age 18. States current use approx 1 week after last detox. Xanax use began at age 54. Hx Opiate use disorder. States currently on Methadone 60 mg tablet oral daily at a [facility] Patient is on prescription Alprazolam 2 mg tablet oral TID and at last visit was supposed to speak to prescribing provider about discontinuing or decreasing dose. This was not done. Patient now states wants to switch to Klonopin and states will speak with provider upon discharge this time. Concern for over sedation post-discharge if patient resumes Xanax use discussed w/ patient. Patient states she will follow- through this time. PMHx:Asthma (wheeze 1 month ago), Hypertension, GERD, MHHx: Anxiety, Depression (bipolar), Insomnia. Denies thoughts of harming self or others. States sees Provider monthly. Currently on meds. Patient Name: Billie Wilson Date: 1960 Address: [address] [place] [address] Sex: Female Rx Written Rx Dispensed Drug Quantity Days Supply Prescriber Name 02/16/2019 02/17/2019 zolpidem tartrate 10 mg tablet 30 30 Omayra Greer FAMILY PRACTICE PHYSICIAN 02/16/2019 02/17/2019 alprazolam 2 mg tablet 90 30 Omayra Greer NP 01/19/2019 01/20/2019 zolpidem tartrate 10 mg tablet 30 30 Omayra Greer FAMILY PRACTICE PHYSICIAN 01/19/2019 01/20/2019 alprazolam 2 mg tablet 90 30 Omayra Greer FAMILY PRACTICE PHYSICIAN 12/22/2018 12/23/2018 zolpidem tartrate 10 mg tablet 30 30 Omayra Greer FAMILY PRACTICE PHYSICIAN 12/22/2018 12/23/2018 alprazolam 2 mg tablet 90 30 Omayra Greer FAMILY PRACTICE PHYSICIAN 11/24/2018 11/24/2018 zolpidem tartrate 10 mg tablet 30 30 Omayra Greer FAMILY PRACTICE PHYSICIAN 11/24/2018 11/24/2018 alprazolam 2 mg tablet 90 30 Omayra Greer FAMILY PRACTICE PHYSICIAN 10/07/2018 10/25/2018 alprazolam 2 mg tablet 90 30 Omayra Greer NP 10/07/2018 10/25/2018 zolpidem tartrate 10 mg tablet 30 30 Omayra Greer NP Patient Name: Billie Henry Date: 1960 Address: [address] [place] [id number] Sex: Female Rx Written Rx Dispensed Drug Quantity Days Supply Prescriber Name 12/12/2018 12/12/2018 alprazolam 1 mg tablet 21 7 Angel Branu Patient Name: Billie Wilson Date: 1960 Address: [address] [address] Sex: Female Rx Written Rx Dispensed Drug Quantity Days Supply Prescriber Name 09/23/2018 09/27/2018 zolpidem tartrate 10 mg tablet 30 30 Omayra Greer FAMILY PRACTICE PHYSICIAN 09/23/2018 09/27/2018 alprazolam 2 mg tablet 90 30 Omayra Greer FAMILY PRACTICE PHYSICIAN 08/26/2018 08/27/2018 zolpidem tartrate 10 mg tablet 30 30 Omayra Greer FAMILY PRACTICE PHYSICIAN 08/26/2018 08/27/2018 alprazolam 2 mg tablet 90 30 Omayra Greer NP Patient Name: Billie Henry Date: 1960 Address: [address] [address] Sex: Female Rx Written Rx Dispensed Drug Quantity Days Supply Prescriber Name 07/28/2018 07/29/2018 zolpidem tartrate 10 mg tablet 30 30 Omayra Greer FAMILY PRACTICE PHYSICIAN 07/28/2018 07/29/2018 alprazolam 2 mg tablet 90 30 Omayra Greer FAMILY PRACTICE PHYSICIAN 07/01/2018 07/02/2018 alprazolam 2 mg tablet 90 30 Omayra Greer FAMILY PRACTICE PHYSICIAN 07/01/2018 07/02/2018 zolpidem tartrate 10 mg tablet 30 30 Omayra Greer FAMILY PRACTICE PHYSICIAN Patient Name: Billie Henry Date: 1960 Address: [address] [id number] Sex: Female Rx Written Rx Dispensed Drug Quantity Days Supply Prescriber Name 06/01/2018 06/05/2018 clonazepam 1 mg tablet 90 30 Omayra Greer FAMILY PRACTICE PHYSICIAN 06/01/2018 06/01/2018 alprazolam 2 mg tablet 90 30 Omayra Greer FAMILY PRACTICE PHYSICIAN 06/01/2018 06/01/2018 zolpidem tartrate 10 mg tablet 30 30 Omayra Greer FAMILY PRACTICE PHYSICIAN Patient Name: Billie Henry Date: 1960 Address: [address] [address] Sex: Female Rx Written Rx Dispensed Drug Quantity Days Supply Prescriber Name 05/21/2018 05/24/2018 clonazepam 0.5 mg tablet 42 14 Amanda Dias () 03/10/2018 03/11/2018 clonazepam 1 mg tablet 28 14 Flakita iN) Patient Name: Billie Henry Date: 1960 Address: [address] [address] Sex: Female Rx Written Rx Dispensed Drug Quantity Days Supply Prescriber Name 04/15/2018 04/24/2018 clonazepam 1 mg tablet 90 30 Omayra Greer FAMILY PRACTICE PHYSICIAN 04/15/2018 04/16/2018 zolpidem tartrate 10 mg tablet 30 30 Omayra Greer FAMILY PRACTICE PHYSICIAN 04/15/2018 04/16/2018 alprazolam 2 mg tablet 90 30 Omayra Greer FAMILY PRACTICE PHYSICIAN 03/18/2018 03/25/2018 clonazepam 1 mg tablet 90 30 Omayra Greer NP 03/18/2018 03/19/2018 alprazolam 2 mg tablet 90 30 Omayra Greer FAMILY PRACTICE PHYSICIAN 03/18/2018 03/19/2018 zolpidem tartrate 10 mg tablet 30 30 Omayra Greer FAMILY PRACTICE PHYSICIAN Exam Limitations: No Limitations - Ebola screening Have you traveled outside of the country in the last 21 days: No Have you had contact with anyone from an Ebola affected area: No Have you been sick,other than usual withdrawal symptoms: No (Denies recent exposure to measles) Do you have a fever: No - Review of Systems Constitutional: Diaphoresis, Changes in sleep (Difficulty falling asleep) EENT: reports: Blurred Vision, Dental Problems (Missing upper teeth. States can chew and swallow ok.) Respiratory: reports: Cough (Cough x 1 month.) Cardiac: reports: No Symptoms Reported GI: reports: Nausea, Abdominal cramping : reports: Other (States urine smells) Musculoskeletal: reports: Joint Pain (Chris knee achy/sharp pain. Pain = "7". Improves w/ motrin, Worse w/ walking (Hx: Chris TKR)) Integumentary: reports: No Symptoms Reported Neuro: reports: Tremors Endocrine: reports: Increased Thirst Hematology: reports: No Symptoms Reported Psychiatric: reports: Judgement Intact, Orientated x3, Agitated, Anxious, Depressed (Denies thoughts of harming self or others) Patient History - Patient Medical History Hx Anemia: No Hx Asthma: Yes (Pt is on MDI) Hx Chronic Obstructive Pulmonary Disease (COPD): No Hx Cancer: No Hx Cardiac Disorders: No Hx Congestive Heart Failure: No Hx Hypertension: Yes (Not on medication) Hx Hypercholesterolemia: No Hx Pacemaker: No HX Cerebrovascular Accident: No Hx Seizures: No Hx Dementia: No Hx Diabetes: No Hx Gastrointestinal Disorders: Yes (GERD- TUMS) Hx Liver Disease: No Hx Genitourinary Disorders: No Hx Sexually Transmitted Disorders: No Hx Renal Disease (ESRD): No Hx Thyroid Disease: No Hx Human Immunodeficiency Virus (HIV): No (NEGATIVE 2019) Hx Hepatitis C: No Hx Depression: Yes (SEROQUEL) Hx Suicide Attempt: No Hx Bipolar Disorder: Yes Hx Schizophrenia: No - Patient Surgical History Past Surgical History: Yes Hx Neurologic Surgery: No Hx Cataract Extraction: No Hx Cardiac Surgery: No Hx Lung Surgery: No Hx Breast Surgery: No Hx Breast Biopsy: No Hx Abdominal Surgery: No Hx Appendectomy: No Hx Cholecystectomy: No Hx Genitourinary Surgery: No Hx Section: No Hx Orthopedic Surgery: Yes (chris. TKR IN 2014) Hx Hysterectomy: No Other Surgical History: removal of benign cyst, left breast/left hand Anesthesia Reaction: No - PPD History Previous Implant?: Yes Documented Results: Negative w/proof Date: 12/19/18 Results: 0 MM PPD to be Administered?: No - Reproductive History Patient is a Female of Child Bearing Age (11 -55 yrs old): No Last Menstrual Period: 02/26/12 Patient : No - Smoking Cessation Smoking history: Former smoker (Stopped 20 days ago.) Have you smoked in the past 12 months: Yes Cigars Per Day: 0 Hx Chewing Tobacco Use: No Initiated information on smoking cessation: Yes 'Breaking Loose' booklet given: 03/07/19 - Substance & Tx. History Hx Alcohol Use: Yes Hx Substance Use: Yes Substance Use Type: Alcohol, Heroin, Prescribed (alprazolam) Hx Substance Use Treatment: Yes (detox, rehab, on MMTP) - Substances abused Alcohol Substance route: Oral Frequency: Daily Amount used: 1 pint Age of first use: 18 Date of last use: 03/07/19 Other Other (specify): xanax Substance route: Oral Frequency: Daily Amount used: 2mg tid po Age of first use: 54 Date of last use: 03/06/19 Family Disease History - Family Disease History Family Disease History: Other: Father (no contact), Mother (MENTAL ILLNESS/ ) Admission Physical Exam [facility] - Vital Signs Vital Signs: Vital Signs - 24 hr 03/07/19 15:29 Temperature 97.6 F Pulse Rate 74 Respiratory 17 Rate Blood Pressure 121/82 - Physical General Appearance: Yes: Nourished, Mild Distress, Tremorous (Mild tremors), Irritable, Sweating (Increased facial moisture), Anxious HEENTM: Yes: EOMI, Hearing grossly Normal, Normocephalic, Normal Voice, SATINDER, Pharynx Normal, Nasal Congestion, Rhinorrhea (Clear) Respiratory: Yes: Lungs Clear, Normal Breath Sounds, No Respiratory Distress, Other (Cough productive of yellowish phlgem.) Neck: Yes: No masses,lesions,Nodules, Supple Breast: Yes: Breast Exam Deferred Cardiology: Yes: Regular Rhythm, S1, S2, Bradycardia Abdominal: Yes: Soft, Increased Bowel Sounds, Protuberent (Increased abdomnial adiposity), Tenderness (Epigastric tenderness upon palpation. No guarding. No rebound tenderness) Genitourinary: Yes: Within Normal Limits Back: Yes: Normal Inspection Musculoskeletal: Yes: full range of Motion, Gait Steady Extremities: Yes: Normal Capillary Refill, Normal Inspection, Normal Range of Motion, Tremors (Mild tremors of hands) Neurological: Yes: scallop cutter II-XII NML intact, Fully Oriented, Alert, Motor Strength 5/5, Normal Mood/Affect Integumentary: Yes: Normal Color, Warm, Other (Slight edema toes to ankle.) Lymphatic: Yes: Within Normal Limits - Diagnostic (1) Anxiolytic dependence Current Visit: Yes Status: Chronic (2) Alcohol dependence with uncomplicated withdrawal Current Visit: Yes Status: Acute (3) GERD (gastroesophageal reflux disease) Current Visit: Yes Status: Chronic Qualifiers: Esophagitis presence: without esophagitis Qualified Code(s): K21.9 - Gastro -esophageal reflux disease without esophagitis (4) Insomnia Current Visit: Yes Status: Chronic Qualifiers: Insomnia type: unspecified Qualified Code(s): G47.00 - Insomnia, unspecified (5) Opioid dependence on agonist therapy Current Visit: Yes Status: Chronic Comment: On Methadone. Needs dose verification. (6) History of asthma Current Visit: No Status: Chronic (7) Cough Current Visit: Yes Status: Chronic (8) Essential (primary) hypertension Current Visit: Yes Status: Chronic (9) Tobacco use disorder, moderate, in early remission Current Visit: Yes Status: Chronic Cleared for Admission [facility] - Detox or Rehab [facility] Level of Care: Medically Managed Detox Regimen/Protocol: Librium Claeared for Rehab Admission: No Breathalyzer - Breathalyzer Breathalyzer: 0 Urine Drug Screen - Test Device Lot number: [id number] Expiration date: 01/16/20 - Control Is test valid?: Yes - Results Drug screen NEGATIVE: No Urine drug screen results: MOP-Opiates, MTD-Methadone, BZO-Benzodiazepines Inpatient Rehab Admission - Rehab Decision to Admit Inpatient rehab admission?: No
[2019-03-07] MEDS ORDERED: MENTHOL/PHENOL 1 EACH UD MM PRN (18:44)
[2019-03-07] MEDS ORDERED: chlordiazePOXIDE HCL 25 MG CAPSULE PO ONE (18:44)
[2019-03-07] MEDS ORDERED: ACETAMINOPHEN 325 MG TABLET (FP) PO PRN ×2 (18:44)
[2019-03-07] MEDS ORDERED: MAG HYDROX/AL HYDROX/SIMETH 30 ML UNIT-DOSE CUP PO PRN (18:44)
[2019-03-07] MEDS ORDERED: MAGNESIUM HYDROX 2400MG/30ML ORAL SUSPENSION 30 ML CUP PO PRN (18:44)
[2019-03-07] MEDS ORDERED: chlordiazePOXIDE HCL 10 MG CAPSULE PO PRN (18:44)
[2019-03-07] MEDS ORDERED: MAGNESIUM CITRATE 300 ML BOTTLE PO PRN (18:44)
[2019-03-07] MEDS ORDERED: IBUPROFEN 400 MG TABLET (FP) PO PRN (18:44)
[2019-03-07] MEDS ORDERED: METHOCARBAMOL 500 MG TABLET PO PRN (18:44)
[2019-03-07] MEDS ORDERED: BISMUTH SUBSALICYLATE 524 MG/30 ML UD PO PRN (18:44)
[2019-03-07] MEDS ORDERED: ALBUTEROL SO4 0.083% IH SOL 2.5 MG/3 ML VIAL.NEB. NEB PRN (18:48)
[2019-03-07] MEDS: guaiFENesin 200 MG/10 ML 10 ML UNIT-DOSE CUPS PO SCH (19:25)
[2019-03-07] MEDS: MELATONIN 5 MG TABLETS PO PRN (22:20)
[2019-03-07] MEDS: THIAMINE HCL 100 MG TABLET (FP) PO SCH (22:20)
[2019-03-07] MEDS: chlordiazePOXIDE HCL 25 MG CAPSULE PO SCH (22:20)
[2019-03-07 23:09] LABS: EPI CELLS 8.3 /HPF (0-5/HPF); HYALINE CASTS 1 /lpf (0-8); PH,URINE 5.5 (5.0-8.0); URINE APPEARANCE TURBID; URINE BACTERIA 37.9 /hpf (NEGATIVE); URINE BILIRUBIN NEGATIVE (NEGATIVE); URINE COLOR YELLOW; URINE GLUCOSE (UA) NEGATIVE (NEGATIVE); URINE KETONE NEGATIVE (NEGATIVE); URINE LEUK ESTERASE NEGATIVE (NEGATIVE); URINE NITRITE NEGATIVE (NEGATIVE); URINE PROTEIN NEGATIVE (NEGATIVE); URINE RBC 2 /hpf (0-4); URINE WBC 1 /hpf (0-5)
[2019-03-08] MEDS: chlordiazePOXIDE HCL 25 MG CAPSULE PO SCH ×2 (05:41→14:53)
[2019-03-08] MEDS: guaiFENesin 200 MG/10 ML 10 ML UNIT-DOSE CUPS PO SCH ×4 (05:42→19:22)
[2019-03-08] MEDS ORDERED: METHADONE HCL 10 MG TABLET PO SCH (08:00)
[2019-03-08] MEDS ORDERED: METHADONE HCL 10 MG TABLET ONE (08:55)
[2019-03-08] MEDS ORDERED: METHADONE HCL 40 MG DISPERSABLE TABLET ONE (08:56)
[2019-03-08] MEDS: METHADONE 40 MG, METHADONE 20 MG PO SCH (08:59)
[2019-03-08 10:05] LABS: ALBUMIN 3.9 g/dl (3.4-5.0); BILIRUBIN,TOTAL 1.2 mg/dL (0.2-1); CALCIUM 9.2 mg/dL (8.5-10.1); CREATININE 0.8 mg/dL (0.55-1.3); POTASSIUM 4.2 mmol/L (3.5-5.1); TOT PROT 7.4 g/dl (6.4-8.2)
[2019-03-08 10:10] LABS: HEMATOCRIT 37.5 % (32.4-45.2); HEMOGLOBIN 12.3 GM/dL (10.7-15.3); MCH 25.4 pg (25.7-33.7); MCHC 32.9 g/dl (32.0-36.0); MEAN CELL VOLUME 77.4 fl (80-96); MEAN PLT VOLUME 8.4 fl (7.5-11.1); PLATELET COUNT 176 K/MM3 (134-434); RBC 4.84 M/mm3 (3.60-5.2); RDW 16.2 % (11.6-15.6); WHITE BLOOD COUNT 3.9 K/mm3 (4.0-10.0)
[2019-03-08] MEDS: PRENATAL VITAMINS W/ FOLIC ACID TABLET (FP) PO SCH (10:27)
--- NOTE | 2019-03-08 10:48 | PN ---
S CIWA - CIWA Score Nausea/Vomitin-No Nausea/No Vomiting Muscle Tremors: 3 Anxiety: 3 Agitation: 3 Paroxysmal Sweats: 3 Orientation: 0-Oriented Tacttile Disturbances: 0-None Auditory Disturbances: 0-None Visual Disturbances: 0-None Headache: 0-None Present CIWA-Ar Total Score: 12 BHS Progress Note (SOAP) Subjective: chills sweats shakes interrupted sleep body aches Objective: 03/08/19 10:52 Vital Signs Temperature 97.7 F 03/08/19 09:33 Pulse Rate 70 03/08/19 09:33 Respiratory Rate 18 03/08/19 09:33 Blood Pressure 122/62 03/08/19 09:33 O2 Sat by Pulse Oximetry (%) Laboratory Tests 03/07/19 03/08/19 03/08/19 23:00 07:00 07:00 WBC 3.9 L RBC 4.84 Hgb 12.3 Hct 37.5 MCV 77.4 L MCH 25.4 L MCHC 32.9 RDW 16.2 H Plt Count 176 D MPV 8.4 Sodium 139 Potassium 4.2 Chloride 105 Carbon Dioxide 28 Anion Gap 6 L BUN 17 Creatinine 0.8 Est GFR (CKD-EPI)AfAm 94.85 Est GFR (CKD-EPI)NonAf 81.84 Random Glucose 126 H Calcium 9.2 Total Bilirubin 1.2 H AST 21 ALT 19 Alkaline Phosphatase 85 Total Protein 7.4 Albumin 3.9 Urine Color Yellow Urine Appearance Turbid Urine pH 5.5 Ur Specific [place] 1.027 Urine Protein Negative Urine Glucose (UA) Negative Urine Ketones Negative Urine Blood Trace Urine Nitrite Negative Urine Bilirubin Negative Urine Urobilinogen 1.0 Ur Leukocyte Esterase Negative Urine WBC (Auto) 1 Urine RBC (Auto) 2 Urine Casts (Auto) 1 U Epithel Cells (Auto) 8.3 Urine Bacteria (Auto) 37.9 aaox3 ambulating no acute distress Assessment: 03/08/19 10:53 withdrawal sx Plan: continue detox increase fluids
--- NOTE | 2019-03-08 12:15 | EKG ---
Test Reason : Blood Pressure : / mmHG Vent. Rate : 060 BPM Atrial Rate : 060 BPM P-R Int : 176 ms QRS Dur : 090 ms QT Int : 444 ms P-R-T Axes : 049 015 019 degrees QTc Int : 444 ms NORMAL SINUS RHYTHM NORMAL ECG WHEN COMPARED WITH ECG OF 09-NOV-2017 18:57, NO SIGNIFICANT CHANGE WAS FOUND Confirmed by MD Calvin, Georges ([id number]) on 03/08/2019 12:15:02 PM Referred By: HANY JOSUE Confirmed By:Georges Simpson MD
--- NOTE | 2019-03-08 14:56 | CONSULT ---
[facility] Psychiatric Consult - Data Date of interview: 03/08/19 Admission source: [facility] Identifying data: Readmission to [facility] for this 58 y/o female, self -referred for detoxification treatment (alcohol, opioid, xanax). Evaluated on . Patient is , a mother of two, domiciled, unemployed and supported on SSI benefits. Substance Abuse History: Discussed in this interview. Ms Henry confirms the following extract from [facility] report as accurate about her patterns of addictions : Smoking history: Former smoker (Stopped 20 days ago.). Have you smoked in the past 12 months: Yes. Cigars Per Day: 0. Hx Chewing Tobacco Use: No. Initiated information on smoking cessation: Yes. 'Breaking Loose' booklet given : 03/07/19. - Substance & Tx. History. Hx Alcohol Use: Yes. Hx Substance Use : Yes. Substance Use Type: Alcohol, Heroin, Prescribed (alprazolam). Hx Substance Use Treatment: Yes (detox, rehab, on MMTP). - Substances abused. Alcohol. Substance route: Oral. Frequency: Daily. Amount used: 1 pint. Age of first use: 18. Date of last use: 03/07/19. Other. Other (specify): xanax. Substance route: Oral. Frequency: Daily. Amount used: 2mg tid po. Age of first use: 54. Date of last use: 03/06/19 Medical History: Remarkable for bronchial asthma, hypertension, seizure disorder , GERD and a history of bilateral knee replacement (2013). Psychiatric History: Patient endorses a history of two psychiatric hospitalizations, two years ago, at the [facility] in the [place] (both hospitalizations). Diagnosed with Bipolar Disorder. Treated with seroquel 100 mg/am + 200 mg/hs. Sees a psychiatrist for medication management at one of the [facility] clinics ([address] [place] [address]) in the [place]. Ms Henry is on [facility] ([facility] at [address] [place] [address] ([place]). Patient denies history of suicide attempts. Physical/Sexual Abuse/Trauma History: Patient denies. Additional Comment: Urine drug screen results: MOP-Opiates, MTD-Methadone, BZO- Benzodiazepines. Noted. Mental Status Exam - Mental Status Exam Alert and Oriented to: Time, Place, Person Cognitive Function: Good Patient Appearance: Well Groomed Mood: Nervous, Withdrawn Affect: Appropriate, Mood Congruent, Normal Range Patient Behavior: Fatigued, Appropriate, Cooperative Speech Pattern: Clear Voice Loudness: Normal Thought Process: Goal Oriented Thought Disorder: Not Present Hallucinations: Denies Suicidal Ideation: Denies Homicidal Ideation: Denies Insight/Judgement: Poor Sleep: Poorly, Difficulty falling asleep Appetite: Good Gait/Station: Normal Psychiatric Findings - Problem List ([place] 1, 2,3) (1) Alcohol dependence with uncomplicated withdrawal Current Visit: Yes Status: Acute (2) Sedative, hypnotic or anxiolytic dependence with withdrawal, uncomplicated Current Visit: Yes Status: Acute (3) Opioid dependence on agonist therapy Current Visit: Yes Status: Chronic (4) Nicotine dependence Current Visit: Yes Status: Chronic Qualifiers: Nicotine product type: cigarettes Substance use status: uncomplicated Qualified Code(s): F17.210 - Nicotine dependence, cigarettes, uncomplicated (5) Bipolar disorder Current Visit: Yes Status: Chronic Comment: According to self-reported history. (6) Insomnia Current Visit: Yes Status: Chronic (7) Non-compliance Current Visit: Yes Status: Chronic - Initial Treatment Plan Initial Treatment Plan: Psychoeducation. Sleep hygiene. Detoxification. AA/NA meetings. Support. Groups. Medications : seroquel 100 mg po daily + 200 mg po hs. Side effects/benefits discussed with the patient. Side effects/benefits discussed with patient. Ms Henry gave verbal consent to MD. Daly.
[2019-03-08] MEDS: chlordiazePOXIDE 5 MG CAPSULE PO SCH (22:05)
[2019-03-08] MEDS: THIAMINE HCL 100 MG TABLET (FP) PO SCH (22:05)
[2019-03-08] MEDS: QUEtiapine FUMARATE 200 MG TABLET PO SCH (22:05)
[2019-03-08] MEDS: MELATONIN 5 MG TABLETS PO PRN (22:06)
[2019-03-09] MEDS: guaiFENesin 200 MG/10 ML 10 ML UNIT-DOSE CUPS PO SCH ×4 (03:10→18:49)
[2019-03-09] MEDS ORDERED: METHADONE HCL 40 MG DISPERSABLE TABLET ONE (05:00)
[2019-03-09] MEDS ORDERED: METHADONE HCL 10 MG TABLET ONE (05:00)
[2019-03-09] MEDS: chlordiazePOXIDE 5 MG CAPSULE PO SCH ×2 (05:52→13:38)
[2019-03-09] MEDS: METHADONE 40 MG, METHADONE 20 MG PO SCH (05:53)
[2019-03-09] MEDS: PRENATAL VITAMINS W/ FOLIC ACID TABLET (FP) PO SCH (10:08)
[2019-03-09] MEDS: QUEtiapine FUMARATE 100 MG TABLET (FP) PO SCH (10:09)
--- NOTE | 2019-03-09 13:02 | PN ---
S CIWA - CIWA Score Nausea/Vomitin-No Nausea/No Vomiting Muscle Tremors: 3 Anxiety: 2 Agitation: 3 Paroxysmal Sweats: 2 Orientation: 0-Oriented Tacttile Disturbances: 0-None Auditory Disturbances: 0-None Visual Disturbances: 0-None Headache: 0-None Present CIWA-Ar Total Score: 10 S Progress Note (SOAP) Subjective: sweats anxiety feeling better Objective: 03/09/19 13:01 Vital Signs Temperature 97.7 F 03/09/19 11:09 Pulse Rate 72 03/09/19 11:09 Respiratory Rate 20 03/09/19 11:09 Blood Pressure 116/70 03/09/19 11:09 O2 Sat by Pulse Oximetry (%) Laboratory Tests 03/07/19 03/07/19 03/08/19 17:08 23:00 07:00 WBC 3.9 L RBC 4.84 Hgb 12.3 Hct 37.5 MCV 77.4 L MCH 25.4 L MCHC 32.9 RDW 16.2 H Plt Count 176 D MPV 8.4 Sodium Potassium Chloride Carbon Dioxide Anion Gap BUN Creatinine Est GFR (CKD-EPI)AfAm Est GFR (CKD-EPI)NonAf Random Glucose Calcium Total Bilirubin AST ALT Alkaline Phosphatase Total Protein Albumin Urine Color Yellow Urine Appearance Turbid Urine pH 5.5 Ur Specific [place] 1.027 Urine Protein Negative Urine Glucose (UA) Negative Urine Ketones Negative Urine Blood Trace Urine Nitrite Negative Urine Bilirubin Negative Urine Urobilinogen 1.0 Ur Leukocyte Esterase Negative Urine WBC (Auto) 1 Urine RBC (Auto) 2 Urine Casts (Auto) 1 U Epithel Cells (Auto) 8.3 Urine Bacteria (Auto) 37.9 POC Urine HCG, Qual Negative RPR Titer 03/08/19 03/08/19 07:00 07:00 WBC RBC Hgb Hct MCV MCH MCHC RDW Plt Count MPV Sodium 139 Potassium 4.2 Chloride 105 Carbon Dioxide 28 Anion Gap 6 L BUN 17 Creatinine 0.8 Est GFR (CKD-EPI)AfAm 94.85 Est GFR (CKD-EPI)NonAf 81.84 Random Glucose 126 H Calcium 9.2 Total Bilirubin 1.2 H AST 21 ALT 19 Alkaline Phosphatase 85 Total Protein 7.4 Albumin 3.9 Urine Color Urine Appearance Urine pH Ur Specific [place] Urine Protein Urine Glucose (UA) Urine Ketones Urine Blood Urine Nitrite Urine Bilirubin Urine Urobilinogen Ur Leukocyte Esterase Urine WBC (Auto) Urine RBC (Auto) Urine Casts (Auto) U Epithel Cells (Auto) Urine Bacteria (Auto) POC Urine HCG, Qual RPR Titer Nonreactive labs noted aaox3 ambulating no acute distress Assessment: 03/09/19 13:01 mild withdrawal sx Plan: continue detox increase fluids
[2019-03-09] MEDS ORDERED: chlordiazePOXIDE HCL 10 MG CAPSULE PO PRN (21:00)
[2019-03-09] MEDS: THIAMINE HCL 100 MG TABLET (FP) PO SCH (22:10)
[2019-03-09] MEDS: QUEtiapine FUMARATE 200 MG TABLET PO SCH (22:10)
[2019-03-09] MEDS: chlordiazePOXIDE HCL 10 MG CAPSULE PO SCH (22:10)
[2019-03-09] MEDS: MELATONIN 5 MG TABLETS PO PRN (22:11)
[2019-03-10] MEDS: guaiFENesin 200 MG/10 ML 10 ML UNIT-DOSE CUPS PO SCH ×3 (01:34→12:21)
[2019-03-10] MEDS ORDERED: METHADONE HCL 10 MG TABLET ONE (05:13)
[2019-03-10] MEDS ORDERED: METHADONE HCL 40 MG DISPERSABLE TABLET ONE (05:14)
[2019-03-10] MEDS: chlordiazePOXIDE HCL 10 MG CAPSULE PO SCH ×3 (05:35→22:26)
[2019-03-10] MEDS: METHADONE 40 MG, METHADONE 20 MG PO SCH (05:35)
[2019-03-10] MEDS: QUEtiapine FUMARATE 100 MG TABLET (FP) PO SCH (10:35)
[2019-03-10] MEDS: PRENATAL VITAMINS W/ FOLIC ACID TABLET (FP) PO SCH (10:35)
--- NOTE | 2019-03-10 12:42 | PN ---
BHS Progress Note (SOAP) Subjective: constipation hemorrhoids Objective: 03/10/19 12:41 Vital Signs Temperature 96.4 F L 03/10/19 09:12 Pulse Rate 90 03/10/19 09:12 Respiratory Rate 18 03/10/19 09:12 Blood Pressure 106/71 03/10/19 09:12 O2 Sat by Pulse Oximetry (%) aaox3 ambulating no acute distress Assessment: 03/10/19 12:42 mild withdrawal sx Plan: continue detox increase fluids anusul cream MOM/mylanta prn
[2019-03-10] MEDS: HYDROCORTISONE 2.5% TOPICAL CREAM 30 GM TUBE TP SCH ×2 (15:43→22:26)
[2019-03-10] MEDS: QUEtiapine FUMARATE 200 MG TABLET PO SCH (22:26)
[2019-03-10] MEDS: THIAMINE HCL 100 MG TABLET (FP) PO SCH (22:26)
[2019-03-10] MEDS: MELATONIN 5 MG TABLETS PO PRN (22:26)
[2019-03-11] MEDS ORDERED: METHADONE HCL 10 MG TABLET ONE (04:22)
[2019-03-11] MEDS ORDERED: METHADONE HCL 40 MG DISPERSABLE TABLET ONE (04:23)
[2019-03-11] MEDS: METHADONE 40 MG, METHADONE 20 MG PO SCH (05:28)
[2019-03-11 07:01] VITALS: BP 106/83; PULSE 95; TEMP 97.3
--- NOTE | 2019-03-11 08:27 | DS ---
[facility] Detox Discharge Summary Admission Date: 03/07/19 - History Present History: Alcohol Dependence, Cannabis Dependence, Sedative Dependence, MMTP - Physical Exam Results Vital Signs: Vital Signs Temperature 97.3 F L 03/11/19 06:00 Pulse Rate 95 H 03/11/19 06:00 Respiratory Rate 18 03/11/19 06:00 Blood Pressure 106/83 03/11/19 06:00 O2 Sat by Pulse Oximetry (%) - Treatment Hospital Course: Detox Protocol Followed, Detoxed Safely, Responded well, Discharged Condition Good, Rehab Referral Accepted - Medication Discharge Medications: Ambulatory Orders Quetiapine Fumarate [Seroquel -] 200 mg PO HS 11/09/17 Albuterol Sulfate Inhaler - [Ventolin HFA Inhaler -] 1 puff IH Q4H PRN 03/07/19 Alprazolam [Xanax] 1 mg PO TID 03/07/19 Quetiapine Fumarate [Seroquel] 100 mg PO DAILY 03/07/19 - Diagnosis (1) Alcohol dependence with uncomplicated withdrawal Current Visit: Yes Status: Chronic (2) Sedative, hypnotic or anxiolytic dependence with withdrawal, uncomplicated Current Visit: Yes Status: Chronic (3) Bipolar disorder Current Visit: Yes Status: Chronic (4) Essential (primary) hypertension Current Visit: Yes Status: Chronic (5) GERD (gastroesophageal reflux disease) Current Visit: Yes Status: Chronic Qualifiers: Esophagitis presence: without esophagitis Qualified Code(s): K21.9 - Gastro -esophageal reflux disease without esophagitis (6) Insomnia Current Visit: Yes Status: Chronic (7) Nicotine dependence Current Visit: Yes Status: Chronic Qualifiers: Nicotine product type: cigarettes Substance use status: uncomplicated Qualified Code(s): F17.210 - Nicotine dependence, cigarettes, uncomplicated (8) Opioid dependence on agonist therapy Current Visit: Yes Status: Chronic (9) Asthma Current Visit: Yes Status: Chronic Qualifiers: Asthma severity: mild Asthma persistence: unspecified Asthma complication type: uncomplicated Qualified Code(s): J45.909 - Unspecified asthma, uncomplicated (10) History of asthma Current Visit: No Status: Chronic (11) MMTP Current Visit: Yes Status: Chronic (12) Obese Current Visit: No Status: Chronic Qualifiers: Obesity type: unspecified obesity type Qualified Code(s): E66.01 - Morbid ( severe) obesity due to excess calories (13) Bipolar II disorder Current Visit: No Status: Suspected - AMA Did Patient Leave Against Medical Advice: No (pt declined; going home and to her mmtp)
== END 2019-03-11 09:00 | disposition home or self-care (01) | DRG 773 ==
LOC: YASAS 12:43 → Y6N 18:56
PROVIDERS: ADMIT Surgery; ATTEND Surgery
PROC: HZ2ZZZZ Detoxification Services for Substance Abuse Treatment (ICD-10-PCS; principal; 2019-03-07)
DX: F10.230 Alcohol dependence with withdrawal, uncomplicated (principal); F13.230 Sedative, hypnotic or anxiolytic dependence with withdrawal, uncomplicated; F11.20 Opioid dependence, uncomplicated; F12.20 Cannabis dependence, uncomplicated; F17.200 Nicotine dependence, unspecified, uncomplicated; F31.9 Bipolar disorder, unspecified; I10 Essential (primary) hypertension; J45.909 Unspecified asthma, uncomplicated; K21.9 Gastro-esophageal reflux disease without esophagitis; G47.00 Insomnia, unspecified; E66.01 Morbid (severe) obesity due to excess calories; Z68.36 Body mass index [BMI] 36.0-36.9, adult; K64.9 Unspecified hemorrhoids; Z91.19 Patient's noncompliance with other medical treatment and regimen
CPT/HCPCS: 36415; 80053; 81003; 81025; 85027; 86593; 93005; 93010

== ENCOUNTER 2019-08-22 17:57 | Inpatient (IN) | payer OTHER ==
[2019-08-22 21:18] VITALS: BMI 35.6
--- NOTE | 2019-08-23 01:39 | PN ---
BHS CIWA - CIWA Score Nausea/Vomitin-Mild Nausea/No Vomiting Muscle Tremors: 4-Moderate,w/Arms Extend Anxiety: 3 Agitation: 3 Paroxysmal Sweats: 1-Minimal Palms Moist Orientation: 0-Oriented Tacttile Disturbances: 1-Very Mild Itch/Numbness Auditory Disturbances: 0-None Visual Disturbances: 0-None Headache: 5-Severe CIWA-Ar Total Score: 18 BHS Progress Note (SOAP) Subjective: Alcohol dependence in withdrawal Objective: 08/23/19 01:46 Tremors Anxiety Muscle pain Sweating Yawning Vital Signs Temperature 97.5 F L 08/22/19 21:02 Pulse Rate 92 H 08/22/19 21:02 Respiratory Rate 20 08/22/19 21:02 Blood Pressure 113/81 08/22/19 21:02 O2 Sat by Pulse Oximetry (%) Assessment: 08/23/19 02:21 Alcohol withdrawal therapy Patient is on Methadone maintenance therapy Plan: Admit to detox Librium regimen Nurse to confirm Methadone 50mg tablet oral with [facility] See Admission ordered H & P to be done in AM by day [employer]
[2019-08-23] MEDS ORDERED: METHOCARBAMOL 500 MG TABLET PO PRN (02:28)
[2019-08-23] MEDS ORDERED: ACETAMINOPHEN 325 MG TABLET (FP) PO PRN ×2 (02:28)
[2019-08-23] MEDS ORDERED: IBUPROFEN 400 MG TABLET (FP) PO PRN (02:28)
[2019-08-23] MEDS ORDERED: MAG HYDROX/AL HYDROX/SIMETH 30 ML UNIT-DOSE CUP PO PRN (02:28)
[2019-08-23] MEDS ORDERED: chlordiazePOXIDE HCL 25 MG CAPSULE PO PRN (02:28)
[2019-08-23] MEDS ORDERED: MENTHOL/PHENOL 1 EACH UD MM PRN (02:28)
[2019-08-23] MEDS ORDERED: MAGNESIUM HYDROX 2400MG/30ML ORAL SUSPENSION 30 ML CUP PO PRN (02:28)
[2019-08-23] MEDS ORDERED: BISMUTH SUBSALICYLATE 524 MG/30 ML UD PO PRN (02:28)
[2019-08-23] MEDS ORDERED: MELATONIN 5 MG TABLETS PO PRN (02:28)
[2019-08-23] MEDS ORDERED: ALBUTEROL SO4 8 GM HFA INHALER IH PRN (02:32)
[2019-08-23] MEDS: chlordiazePOXIDE HCL 25 MG CAPSULE PO SCH ×4 (06:25→22:40)
--- NOTE | 2019-08-23 08:09 | CONSULT ---
[facility] Psychiatric Consult - Data Date of interview: 08/23/19 Admission source: Self-referred Identifying data: Ms Henry is a 58 years old felale, mother of 2 children, unemployed receiving SSI, domiciled seeking detox treatment for alcohol and benzodiazepine Substance Abuse History: Reports history of alcohol and xanax use. Refer to addiction counselor's summary for further information Medical History: Significant for bronchial asthma, GERD, hypertension, seizure disorder, history of removal of benign cyst left breat and bilateral knee replacement (2013). Psychiatric History: Patient is a hostile, negativistic historian, She reports being diagnosed with Bipolar Disorder in 2002. Reports two previous psychiatric hospitalizations both at [facility]. Reports receiving outpatient psychiatric treament at [facility] at [address] [place] [address] and she is prescribed Seroquel 100 mg/day & 200 mg/hs. Denies previous suicidal attempt. At present, denies experiencing psychotic, manic or depressive symptoms , S/H ideations. However, reports feeling irritable(I did not get my medications ) and sleeping poorly Physical/Sexual Abuse/Trauma History: Declines to provide information about this topic Mental Status Exam - Mental Status Exam Alert and Oriented to: Time, Place, Person Cognitive Function: Fair Patient Appearance: Well Groomed Mood: Irritable Affect: Appropriate Patient Behavior: Uncooperative Speech Pattern: Clear Voice Loudness: Normal Thought Process: Intact, Goal Oriented Thought Disorder: Not Present Hallucinations: Denies Suicidal Ideation: Denies Homicidal Ideation: Denies Insight/Judgement: Poor Sleep: Poorly Appetite: Good Muscle strength/Tone: Normal Gait/Station: Normal Psychiatric Findings - Problem List ([place] 1, 2,3) (1) Bipolar disorder Current Visit: No Status: Chronic Comment: According to self-reported history. - Initial Treatment Plan Initial Treatment Plan: 1) Continue Seroquel 100 mg daily & 200 mg HS. 2) Continue inpatient detoxification
--- NOTE | 2019-08-23 08:57 | HP ---
CIWA Score Nausea/Vomitin-Mild Nausea/No Vomiting Muscle Tremors: 4-Moderate,w/Arms Extend Anxiety: 3 Agitation: 3 Paroxysmal Sweats: 1-Minimal Palms Moist Orientation: 0-Oriented Tacttile Disturbances: 1-Very Mild Itch/Numbness Auditory Disturbances: 0-None Visual Disturbances: 0-None Headache: 5-Severe CIWA-Ar Total Score: 18 - Admission Criteria OASAS Guidelines: Admission for Medically Managed Detox: Requires at least one of the followin. CIWA greater than 12 2. Seizures within the past 24 hours 3. Delirium tremens within the past 24 hours 4. Hallucinations within the past 24 hours 5. Acute intervention needed for co occurring medical disorder 6. Acute intervention needed for co occurring psychiatric disorder 7. Severe withdrawal that cannot be handled at a lower level of care (continued vomiting, continued diarrhea, abnormal vital signs) requiring intravenous medication and/or fluids 8. Admitting History and Physical - Admission Chief Complaint: "I want to stop drinking. I just relapsed after months of abstinence." History of Present Illness: 58 year old female with history of opioid dependence on a methadone maintenance program, alcohol dependence with withdrawals who presents to be admitted to detox today after having relapsed just recently. She states that before it gets way out of hand, she needed to detox and then she has planned to attende rehab at [facility] upon discharge from detox. PMH:Osteoarthritis with B/L knee replacements Psurg: B/L knee replacements and LFx of arm 1 year ago that healed improperly. Psych: Bipolar Disorder being treated by Private psychiatrist on Seroquel 10mg AQHS, Catapress 0.3 mg TID, Klonopin 2mg daily. She has support systems in place but poor environment to continue abstinence. - Past Medical History ...LMP: 02/26/12 ...: No - Smoking History Smoking history: Former smoker Have you smoked in the past 12 months: Yes Aproximately how many cigarettes per day: 10 - Alcohol/Substance Use Hx Alcohol Use: Yes Admission ROS BHS - HPI Chief Complaint: "I want to stop drinking. I just relapsed after months of abstinence." Allergies/Adverse Reactions: Allergies Allergy/AdvReac Type Severity Reaction Status Date / Time haloperidol [From Haldol] AdvReac stiffness Verified 08/22/19 21:02 haloperidol lactate AdvReac stiffness Verified 08/22/19 21:02 [From Haldol] History of Present Illness: 58 year old female with history of opioid dependence on a methadone maintenance program, alcohol dependence with withdrawals who presents to be admitted to detox today after having relapsed just recently. She states that before it gets way out of hand, she needed to detox and then she has planned to attende rehab at [facility] upon discharge from detox. PMH:Osteoarthritis with B/L knee replacements Psurg: B/L knee replacements and LFx of arm 1 year ago that healed improperly. Psych: Bipolar Disorder being treated by Private psychiatrist on Seroquel 10mg AQHS, Catapress 0.3 mg TID, Klonopin 2mg daily. She has support systems in place but poor environment to continue abstinence. - Ebola screening Have you traveled outside of the country in the last 21 days: No (N) Have you had contact with anyone from an Ebola affected area: No Have you been sick,other than usual withdrawal symptoms: No Do you have a fever: No - Review of Systems Constitutional: Chills, Diaphoresis, Night Sweats EENT: reports: No Symptoms Reported Respiratory: reports: No Symptoms reported Cardiac: reports: No Symptoms Reported GI: reports: Nausea, Abdominal cramping : reports: No Symptoms Reported Musculoskeletal: reports: Back Pain, Muscle Pain Integumentary: reports: No Symptoms Reported Neuro: reports: Headache Endocrine: reports: No Symptoms Reported Hematology: reports: No Symptoms Reported Psychiatric: reports: Judgement Intact, Mood/Affect Appropiate, Orientated x3 Other Systems: Reviewed and Negative Patient History - Patient Medical History Hx Anemia: No Hx Asthma: Yes Hx Chronic Obstructive Pulmonary Disease (COPD): No Hx Cancer: No Hx Cardiac Disorders: No Hx Congestive Heart Failure: No Hx Hypertension: Yes Hx Hypercholesterolemia: No Hx Pacemaker: No HX Cerebrovascular Accident: No Hx Seizures: No Hx Dementia: No Hx Diabetes: No Hx Gastrointestinal Disorders: No Hx Liver Disease: No Hx Genitourinary Disorders: No Hx Sexually Transmitted Disorders: No Hx Renal Disease (ESRD): No Hx Thyroid Disease: No Hx Human Immunodeficiency Virus (HIV): No (NEGATIVE 2019) Hx Hepatitis C: No Hx Depression: Yes Hx Suicide Attempt: No Hx Bipolar Disorder: Yes Hx Schizophrenia: No - Patient Surgical History Past Surgical History: Yes Hx Neurologic Surgery: No Hx Cataract Extraction: No Hx Cardiac Surgery: No Hx Lung Surgery: No Hx Breast Surgery: No Hx Breast Biopsy: No Hx Abdominal Surgery: No Hx Appendectomy: No Hx Cholecystectomy: No Hx Genitourinary Surgery: No Hx Section: No Hx Orthopedic Surgery: Yes (chris. TKR IN 2014) Hx Hysterectomy: No Other Surgical History: removal of benign cyst, left breast/left hand Anesthesia Reaction: No - PPD History Previous Implant?: No Implanted On Prior [facility] Admission?: Yes Date: 08/25/19 Results: 0 MM - Reproductive History Last Menstrual Period: 02/26/12 Patient : No - Smoking Cessation Smoking history: Former smoker Have you smoked in the past 12 months: Yes Aproximately how many cigarettes per day: 10 Cigars Per Day: 0 Hx Chewing Tobacco Use: No Initiated information on smoking cessation: Yes 'Breaking Loose' booklet given: 08/22/19 - Substances abused Alcohol Substance route: Oral Frequency: Daily Amount used: 1 pint vodka Age of first use: 18 Date of last use: 08/22/19 Other Other (specify): xanax Substance route: Oral Frequency: Daily Amount used: 2mg tid po Age of first use: 54 Date of last use: 03/06/19 Admission Physical Exam BHS - Vital Signs Vital Signs: Vital Signs - 24 hr 08/22/19 08/23/19 08/23/19 21:02 02:57 07:51 Temperature 97.5 F L 97 F L 97.7 F Pulse Rate 92 H 79 64 Respiratory 20 18 18 Rate Blood Pressure 113/81 132/81 120/62 - Physical General Appearance: Yes: Irritable, Sweating, Anxious HEENTM: Yes: EOMI, Hearing grossly Normal, Normal ENT Inspection, Normocephalic , Normal Voice, SATINDER, Pharynx Normal, Tm's normal Respiratory: Yes: Chest Non-Tender, Lungs Clear, Normal Breath Sounds, No Respiratory Distress, No Accessory Muscle Use Neck: Yes: No masses,lesions,Nodules, Supple, Trachea in good position Breast: Yes: Breast Exam Deferred Cardiology: Yes: Regular Rhythm, Regular Rate, S1, S2 Abdominal: Yes: Normal Bowel Sounds, Soft, Protuberent Genitourinary: Yes: Within Normal Limits Back: Yes: Normal Inspection Musculoskeletal: Yes: full range of Motion, Gait Steady, Pelvis Stable Extremities: Yes: Normal Capillary Refill, Normal Inspection, Normal Range of Motion, Non-Tender Neurological: Yes: knot tier II-XII NML intact, Fully Oriented, Alert, Motor Strength 5/5, Normal Mood/Affect, Normal Response Integumentary: Yes: Normal Color, Warm Lymphatic: Yes: Within Normal Limits - Diagnostic (1) Alcohol dependence with uncomplicated withdrawal Current Visit: Yes Status: Chronic (2) Asthma Current Visit: Yes Status: Chronic Qualifiers: Asthma severity: mild Asthma persistence: unspecified Asthma complication type: uncomplicated Qualified Code(s): J45.909 - Unspecified asthma, uncomplicated (3) Bipolar disorder Current Visit: Yes Status: Chronic Comment: According to self-reported history. (4) Essential (primary) hypertension Current Visit: Yes Status: Chronic (5) GERD (gastroesophageal reflux disease) Current Visit: Yes Status: Chronic Qualifiers: Esophagitis presence: without esophagitis Qualified Code(s): K21.9 - Gastro -esophageal reflux disease without esophagitis (6) History of asthma Current Visit: Yes Status: Chronic (7) Insomnia Current Visit: Yes Status: Chronic (8) MMTP Current Visit: Yes Status: Chronic (9) Nicotine dependence Current Visit: Yes Status: Chronic Qualifiers: Nicotine product type: cigarettes Substance use status: uncomplicated Qualified Code(s): F17.210 - Nicotine dependence, cigarettes, uncomplicated (10) Obese Current Visit: Yes Status: Chronic Qualifiers: Obesity type: unspecified obesity type Qualified Code(s): E66.01 - Morbid ( severe) obesity due to excess calories (11) Opioid dependence on agonist therapy Current Visit: Yes Status: Chronic (12) Sedative, hypnotic or anxiolytic dependence with withdrawal, uncomplicated Current Visit: Yes Status: Chronic (13) Bipolar II disorder Current Visit: Yes Status: Suspected Cleared for Admission S - Detox or Rehab [facility] Level of Care: Medically Managed Detox Regimen/Protocol: Librium Screened but not Admitted - Documentation of Visit Screened but not Admitted: No Breathalyzer - Breathalyzer Breathalyzer: 0 Urine Drug Screen - Test Device Lot number: [id number] Expiration date: 04/17/21 - Control Is test valid?: Yes - Results Drug screen NEGATIVE: No Urine drug screen results: MOP-Opiates, OXY-Oxycodone, MTD-Methadone, BZO- Benzodiazepines Inpatient Rehab Admission - Rehab Decision to Admit Inpatient rehab admission?: No
[2019-08-23] MEDS ORDERED: METHADONE HCL 10 MG TABLET PO SCH (09:15)
[2019-08-23] MEDS ORDERED: METHADONE HCL 40 MG DISPERSABLE TABLET ONE (10:03)
[2019-08-23] MEDS ORDERED: METHADONE HCL 10 MG TABLET ONE (10:03)
[2019-08-23] MEDS: METHADONE 40 MG, METHADONE 10 MG PO SCH (10:14)
[2019-08-23] MEDS: PRENATAL VITAMINS W/ FOLIC ACID TABLET (FP) PO SCH (10:15)
[2019-08-23] MEDS ORDERED: FLUCONAZOLE 50 MG TABLET PO ONE (14:00)
--- NOTE | 2019-08-23 14:16 | PN ---
S CIWA - CIWA Score Nausea/Vomitin-Mild Nausea/No Vomiting Muscle Tremors: 2 Anxiety: 2 Agitation: 2 Paroxysmal Sweats: No Perspiration Orientation: 0-Oriented Tacttile Disturbances: 1-Very Mild Itch/Numbness Auditory Disturbances: 0-None Visual Disturbances: 0-None Headache: 2-Mild CIWA-Ar Total Score: 10 S Progress Note (SOAP) Subjective: alert,irritable,anxious,interrupted sleep,pain in the body,had vaginal discharge for 1 week Objective: 08/23/19 14:13 Vital Signs Temperature 97.0 F L 08/23/19 09:37 Pulse Rate 78 08/23/19 09:37 Respiratory Rate 18 08/23/19 09:37 Blood Pressure 119/81 08/23/19 09:37 O2 Sat by Pulse Oximetry (%) Assessment: 08/23/19 14:14 withdrawal symptom Plan: continue detox librium regimen,diflucan 150 mgs po once,flagyl 500 mgs po tid for 7 days,clotrimazole vaginal cream hs for 7 days
[2019-08-23] MEDS: metroNIDAZOLE 250 MG TABLET PO SCH ×2 (15:13→22:36)
[2019-08-23] MEDS: hydrOXYzine PAMOATE 25 MG CAPSULE (FP) PO PRN (18:37)
[2019-08-23] MEDS: THIAMINE HCL 100 MG TABLET (FP) PO SCH (22:38)
[2019-08-23] MEDS: CLOTRIMAZOLE 1% VAGINAL CREAM WITH APPLICATOR 45 GM TUBE VG SCH (22:38)
[2019-08-23] MEDS ORDERED: QUEtiapine FUMARATE 200 MG TABLET PO SCH (23:31)
[2019-08-23] MEDS: QUEtiapine FUMARATE 200 MG TABLET PO SCH (23:52)
[2019-08-24] MEDS ORDERED: METHADONE HCL 10 MG TABLET ONE (05:00)
[2019-08-24] MEDS ORDERED: METHADONE HCL 40 MG DISPERSABLE TABLET ONE (05:01)
[2019-08-24] MEDS: chlordiazePOXIDE HCL 25 MG CAPSULE PO SCH ×2 (06:33→10:13)
[2019-08-24] MEDS: METHADONE 40 MG, METHADONE 10 MG PO SCH (06:33)
[2019-08-24] MEDS: metroNIDAZOLE 250 MG TABLET PO SCH ×3 (07:26→22:25)
[2019-08-24] MEDS: PRENATAL VITAMINS W/ FOLIC ACID TABLET (FP) PO SCH (10:13)
[2019-08-24] MEDS: QUEtiapine FUMARATE 100 MG TABLET (FP) PO SCH (10:13)
[2019-08-24] MEDS: hydrOXYzine PAMOATE 25 MG CAPSULE (FP) PO PRN (10:14)
[2019-08-24] MEDS: MAGNESIUM CITRATE 300 ML BOTTLE PO PRN (10:14)
[2019-08-24 10:53] LABS: ALBUMIN 3.5 g/dl (3.4-5.0); BILIRUBIN,TOTAL 0.4 mg/dL (0.2-1); BLOOD UREA NITROGEN 16.7 mg/dL (7-18); CALCIUM 8.6 mg/dL (8.5-10.1); CREATININE 0.8 mg/dL (0.55-1.3); TOT PROT 6.7 g/dl (6.4-8.2)
[2019-08-24 10:54] LABS: HEMATOCRIT 35.4 % (32.4-45.2); MCH 27.2 pg (25.7-33.7); MEAN PLT VOLUME 9.5 fl (7.5-11.1); PLATELET COUNT 207 K/MM3 (134-434); RBC 4.42 M/mm3 (3.60-5.2); RDW 15.1 % (11.6-15.6); WHITE BLOOD COUNT 4.2 K/mm3 (4.0-10.0)
[2019-08-24] MEDS ORDERED: diazePAM 5 MG TABLET PO PRN (11:12)
[2019-08-24] MEDS: diazePAM 5 MG TABLET PO SCH ×2 (15:16→22:26)
--- NOTE | 2019-08-24 15:31 | PN ---
S CIWA - CIWA Score Nausea/Vomitin-Mild Nausea/No Vomiting Muscle Tremors: 2 Anxiety: 2 Agitation: 2 Paroxysmal Sweats: No Perspiration Orientation: 0-Oriented Tacttile Disturbances: 1-Very Mild Itch/Numbness Auditory Disturbances: 0-None Visual Disturbances: 0-None Headache: 1-Very Mild CIWA-Ar Total Score: 9 S Progress Note (SOAP) Subjective: alert,irritable,anxious,interrupted sleep,pain in the body and back Objective: 08/24/19 15:29 Vital Signs Temperature 97.7 F 08/24/19 13:36 Pulse Rate 69 08/24/19 13:36 Respiratory Rate 18 08/24/19 13:36 Blood Pressure 114/69 08/24/19 13:36 O2 Sat by Pulse Oximetry (%) Laboratory Last Values WBC 4.2 K/mm3 (4.0-10.0) 08/24/19 08:15 RBC 4.42 M/mm3 (3.60-5.2) 08/24/19 08:15 Hgb 12.0 GM/dL (10.7-15.3) 08/24/19 08:15 Hct 35.4 % (32.4-45.2) 08/24/19 08:15 MCV 80.0 fl (80-96) 08/24/19 08:15 MCH 27.2 pg (25.7-33.7) 08/24/19 08:15 MCHC 34.0 g/dl (32.0-36.0) 08/24/19 08:15 RDW 15.1 % (11.6-15.6) 08/24/19 08:15 Plt Count 207 K/MM3 (134-434) 08/24/19 08:15 MPV 9.5 fl (7.5-11.1) D 08/24/19 08:15 Sodium 140 mmol/L (136-145) 08/24/19 08:15 Potassium 4.0 mmol/L (3.5-5.1) 08/24/19 08:15 Chloride 108 mmol/L (98-107) H 08/24/19 08:15 Carbon Dioxide 27 mmol/L (21-32) 08/24/19 08:15 Anion Gap 5 MMOL/L (8-16) L 08/24/19 08:15 BUN 16.7 mg/dL (7-18) 08/24/19 08:15 Creatinine 0.8 mg/dL (0.55-1.3) 08/24/19 08:15 Est GFR (CKD-EPI)AfAm 94.19 08/24/19 08:15 Est GFR (CKD-EPI)NonAf 81.27 08/24/19 08:15 Random Glucose 125 mg/dL (74-106) H 08/24/19 08:15 Calcium 8.6 mg/dL (8.5-10.1) 08/24/19 08:15 Total Bilirubin 0.4 mg/dL (0.2-1) 08/24/19 08:15 AST 15 U/L (15-37) 08/24/19 08:15 ALT 21 U/L (13-61) 08/24/19 08:15 Alkaline Phosphatase 78 U/L (45-117) 08/24/19 08:15 Total Protein 6.7 g/dl (6.4-8.2) 08/24/19 08:15 Albumin 3.5 g/dl (3.4-5.0) 08/24/19 08:15 Assessment: 08/24/19 15:30 withdrawal symptom Plan: continue detox,patient would like regimen to change to valium
[2019-08-24] MEDS ORDERED: QUEtiapine FUMARATE 200 MG TABLET PO SCH (22:00)
[2019-08-24] MEDS: THIAMINE HCL 100 MG TABLET (FP) PO SCH (22:26)
[2019-08-24] MEDS: QUEtiapine FUMARATE 200 MG TABLET PO SCH (22:26)
[2019-08-24] MEDS: CLOTRIMAZOLE 1% VAGINAL CREAM WITH APPLICATOR 45 GM TUBE VG SCH (22:42)
[2019-08-25] MEDS ORDERED: chlordiazePOXIDE HCL 10 MG CAPSULE PO PRN
[2019-08-25] MEDS ORDERED: chlordiazePOXIDE HCL 10 MG CAPSULE PO SCH (05:00)
[2019-08-25] MEDS ORDERED: METHADONE HCL 10 MG TABLET ONE (05:05)
[2019-08-25] MEDS ORDERED: METHADONE HCL 40 MG DISPERSABLE TABLET ONE (05:05)
[2019-08-25] MEDS: METHADONE 40 MG, METHADONE 10 MG PO SCH (05:11)
[2019-08-25] MEDS: diazePAM 5 MG TABLET PO SCH ×3 (05:11→22:42)
[2019-08-25] MEDS: metroNIDAZOLE 250 MG TABLET PO SCH ×3 (06:27→22:42)
[2019-08-25] MEDS ORDERED: SODIUM PHOSPHATE/NA BIPHOS 133 ML ENEMA PR ONE (09:06)
[2019-08-25] MEDS ORDERED: AZITHROMYCIN 250 MG TABLET PO ONE (09:09)
[2019-08-25] MEDS ORDERED: AZITHROMYCIN 500 MG TABLET PO SCH (10:00)
[2019-08-25] MEDS: PRENATAL VITAMINS W/ FOLIC ACID TABLET (FP) PO SCH (10:51)
[2019-08-25] MEDS: QUEtiapine FUMARATE 100 MG TABLET (FP) PO SCH (10:51)
--- NOTE | 2019-08-25 12:28 | PN ---
S CIWA - CIWA Score Nausea/Vomitin-No Nausea/No Vomiting Muscle Tremors: 2 Anxiety: 1-Mildly Anxious Agitation: 2 Paroxysmal Sweats: 2 Orientation: 0-Oriented Tacttile Disturbances: 0-None Auditory Disturbances: 0-None Visual Disturbances: 0-None Headache: 0-None Present CIWA-Ar Total Score: 7 S Progress Note (SOAP) Subjective: sweats constipation interrupted sleep Objective: 08/25/19 12:28 Vital Signs Temperature 97.3 F L 08/25/19 10:34 Pulse Rate 86 08/25/19 10:34 Respiratory Rate 18 08/25/19 10:34 Blood Pressure 111/64 08/25/19 10:34 O2 Sat by Pulse Oximetry (%) Laboratory Tests 08/24/19 08/24/19 08/24/19 08:15 08:15 08:15 WBC 4.2 RBC 4.42 Hgb 12.0 Hct 35.4 MCV 80.0 MCH 27.2 MCHC 34.0 RDW 15.1 Plt Count 207 MPV 9.5 D Sodium 140 Potassium 4.0 Chloride 108 H Carbon Dioxide 27 Anion Gap 5 L BUN 16.7 Creatinine 0.8 Est GFR (CKD-EPI)AfAm 94.19 Est GFR (CKD-EPI)NonAf 81.27 Random Glucose 125 H Calcium 8.6 Total Bilirubin 0.4 AST 15 ALT 21 Alkaline Phosphatase 78 Total Protein 6.7 Albumin 3.5 RPR Titer Nonreactive labs noted aaox3 ambulating no acute distress Assessment: 08/25/19 12:28 withdrawal sx Plan: continue detox fleets enema' senna qhs increase fluids
[2019-08-25] MEDS: MAGNESIUM CITRATE 300 ML BOTTLE PO PRN (15:42)
[2019-08-25] MEDS: SENNOSIDES 8.6MG TABLET (FP) PO SCH (22:42)
[2019-08-25] MEDS: QUEtiapine FUMARATE 200 MG TABLET PO SCH (22:42)
[2019-08-25] MEDS: THIAMINE HCL 100 MG TABLET (FP) PO SCH (22:42)
[2019-08-25] MEDS: CLOTRIMAZOLE 1% VAGINAL CREAM WITH APPLICATOR 45 GM TUBE VG SCH (22:53)
[2019-08-26] MEDS ORDERED: chlordiazePOXIDE HCL 10 MG CAPSULE PO SCH (05:00)
[2019-08-26] MEDS ORDERED: METHADONE HCL 40 MG DISPERSABLE TABLET ONE (05:09)
[2019-08-26] MEDS ORDERED: METHADONE HCL 10 MG TABLET ONE (05:09)
[2019-08-26] MEDS: diazePAM 5 MG TABLET PO SCH ×2 (05:34→17:41)
[2019-08-26] MEDS: METHADONE 40 MG, METHADONE 10 MG PO SCH (05:34)
[2019-08-26] MEDS: metroNIDAZOLE 250 MG TABLET PO SCH ×3 (07:23→22:42)
[2019-08-26] MEDS: QUEtiapine FUMARATE 100 MG TABLET (FP) PO SCH (10:59)
[2019-08-26] MEDS: PRENATAL VITAMINS W/ FOLIC ACID TABLET (FP) PO SCH (10:59)
[2019-08-26] MEDS: AZITHROMYCIN 250 MG TABLET PO SCH (10:59)
[2019-08-26] MEDS: hydrOXYzine PAMOATE 25 MG CAPSULE (FP) PO PRN (11:18)
--- NOTE | 2019-08-26 14:28 | PN ---
S CIWA - CIWA Score Nausea/Vomitin-No Nausea/No Vomiting Muscle Tremors: 2 Anxiety: 1-Mildly Anxious Agitation: 1-Slight > Activity Paroxysmal Sweats: No Perspiration Orientation: 0-Oriented Tacttile Disturbances: 0-None Auditory Disturbances: 0-None Visual Disturbances: 0-None Headache: 0-None Present CIWA-Ar Total Score: 4 BHS Progress Note (SOAP) Subjective: feel much better after moving my bowels anxiety Objective: 08/26/19 14:27 Vital Signs Temperature 96.8 F L 08/26/19 13:52 Pulse Rate 83 08/26/19 13:52 Respiratory Rate 18 08/26/19 13:52 Blood Pressure 124/69 08/26/19 13:52 O2 Sat by Pulse Oximetry (%) aaox3 ambulating no acute distress Assessment: 08/26/19 14:28 withdrawal sx Plan: continue detox d/c in am
[2019-08-26] MEDS: QUEtiapine FUMARATE 200 MG TABLET PO SCH (22:42)
[2019-08-26] MEDS: THIAMINE HCL 100 MG TABLET (FP) PO SCH (22:42)
[2019-08-26] MEDS: SENNOSIDES 8.6MG TABLET (FP) PO SCH (22:42)
[2019-08-26] MEDS: CLOTRIMAZOLE 1% VAGINAL CREAM WITH APPLICATOR 45 GM TUBE VG SCH (23:11)
[2019-08-27] MEDS ORDERED: chlordiazePOXIDE HCL 10 MG CAPSULE PO ONE (05:00)
[2019-08-27] MEDS ORDERED: METHADONE HCL 10 MG TABLET ONE (05:22)
[2019-08-27] MEDS ORDERED: METHADONE HCL 40 MG DISPERSABLE TABLET ONE (05:23)
[2019-08-27] MEDS: METHADONE 40 MG, METHADONE 10 MG PO SCH (05:44)
[2019-08-27] MEDS ORDERED: diazePAM 5 MG TABLET PO ONE (06:00)
[2019-08-27] MEDS: metroNIDAZOLE 250 MG TABLET PO SCH (07:20)
[2019-08-27] MEDS: QUEtiapine FUMARATE 100 MG TABLET (FP) PO SCH (09:33)
[2019-08-27] MEDS: AZITHROMYCIN 250 MG TABLET PO SCH (09:33)
[2019-08-27] MEDS: PRENATAL VITAMINS W/ FOLIC ACID TABLET (FP) PO SCH (09:33)
--- NOTE | 2019-08-27 09:52 | DS ---
[facility] Detox Discharge Summary Admission Date: 08/23/19 Discharge Date: 08/27/19 - History Present History: Alcohol Dependence, Opioid Dependence, Sedative Dependence - Physical Exam Results Vital Signs: Vital Signs Temperature 97.3 F L 08/27/19 06:09 Pulse Rate 83 08/27/19 06:09 Respiratory Rate 20 08/27/19 06:09 Blood Pressure 128/81 08/27/19 06:09 O2 Sat by Pulse Oximetry (%) Pertinent Admission Physical Exam Findings: pt arrived in withdrawals Vital Signs Temperature 97.3 F L 08/27/19 06:09 Pulse Rate 83 08/27/19 06:09 Respiratory Rate 20 08/27/19 06:09 Blood Pressure 128/81 08/27/19 06:09 O2 Sat by Pulse Oximetry (%) Laboratory Tests 08/24/19 08/24/19 08/24/19 08:15 08:15 08:15 WBC 4.2 RBC 4.42 Hgb 12.0 Hct 35.4 MCV 80.0 MCH 27.2 MCHC 34.0 RDW 15.1 Plt Count 207 MPV 9.5 D Sodium 140 Potassium 4.0 Chloride 108 H Carbon Dioxide 27 Anion Gap 5 L BUN 16.7 Creatinine 0.8 Est GFR (CKD-EPI)AfAm 94.19 Est GFR (CKD-EPI)NonAf 81.27 Random Glucose 125 H Calcium 8.6 Total Bilirubin 0.4 AST 15 ALT 21 Alkaline Phosphatase 78 Total Protein 6.7 Albumin 3.5 RPR Titer Nonreactive today pt aaox3 ambulating no acute distress no s/s of withdrawals - Treatment Hospital Course: Detox Protocol Followed, Detoxed Safely, Responded well, Discharged Condition Good, Rehab Referral Accepted Patient has Accepted a Rehab Referral to: pt referred to her MMTP - Medication Discharge Medications: Ambulatory Orders Quetiapine Fumarate [Seroquel -] 200 mg PO HS 11/09/17 Albuterol Sulfate Inhaler - [Ventolin HFA Inhaler -] 1 puff IH Q4H PRN 03/07/19 Quetiapine Fumarate [Seroquel] 100 mg PO DAILY 03/07/19 - Diagnosis (1) Alcohol dependence with uncomplicated withdrawal Current Visit: Yes Status: Chronic (2) Asthma Current Visit: Yes Status: Chronic Qualifiers: Asthma severity: mild Asthma persistence: unspecified Asthma complication type: uncomplicated Qualified Code(s): J45.909 - Unspecified asthma, uncomplicated (3) Bipolar disorder Current Visit: Yes Status: Chronic (4) Essential (primary) hypertension Current Visit: Yes Status: Chronic (5) GERD (gastroesophageal reflux disease) Current Visit: Yes Status: Chronic Qualifiers: Esophagitis presence: without esophagitis Qualified Code(s): K21.9 - Gastro -esophageal reflux disease without esophagitis (6) History of asthma Current Visit: Yes Status: Chronic (7) Insomnia Current Visit: Yes Status: Chronic (8) MMTP Current Visit: Yes Status: Chronic (9) Nicotine dependence Current Visit: Yes Status: Chronic Qualifiers: Nicotine product type: cigarettes Substance use status: uncomplicated Qualified Code(s): F17.210 - Nicotine dependence, cigarettes, uncomplicated (10) Obese Current Visit: Yes Status: Chronic Qualifiers: Obesity type: unspecified obesity type Qualified Code(s): E66.01 - Morbid ( severe) obesity due to excess calories (11) Opioid dependence on agonist therapy Current Visit: Yes Status: Chronic (12) Sedative, hypnotic or anxiolytic dependence with withdrawal, uncomplicated Current Visit: Yes Status: Chronic (13) Bipolar II disorder Current Visit: Yes Status: Suspected - AMA Did Patient Leave Against Medical Advice: No
[2019-08-27 10:05] VITALS: BP 113/69; PULSE 82; TEMP 98.4
--- NOTE | 2019-08-28 10:55 | EKG ---
Test Reason : Blood Pressure : / mmHG Vent. Rate : 058 BPM Atrial Rate : 058 BPM P-R Int : 202 ms QRS Dur : 088 ms QT Int : 392 ms P-R-T Axes : 064 034 045 degrees QTc Int : 384 ms SINUS BRADYCARDIA OTHERWISE NORMAL ECG WHEN COMPARED WITH ECG OF 07-MAR-2019 19:01, QT HAS SHORTENED Confirmed by ELY ROMAN MD ([id number]) on 08/28/2019 10:54:29 AM Referred By: Confirmed By:ELY ROMAN MD
== END 2019-08-27 09:50 | disposition home or self-care (01) | DRG 773 ==
LOC: YASAS 17:57 → Y6N 08-23 02:35
PROVIDERS: ADMIT Allergy & Immunology; ATTEND Allergy & Immunology
PROC: HZ2ZZZZ Detoxification Services for Substance Abuse Treatment (ICD-10-PCS; principal; 2019-08-23)
DX: F10.230 Alcohol dependence with withdrawal, uncomplicated (principal); F13.230 Sedative, hypnotic or anxiolytic dependence with withdrawal, uncomplicated; F11.20 Opioid dependence, uncomplicated; F17.210 Nicotine dependence, cigarettes, uncomplicated; F31.81 Bipolar II disorder; I10 Essential (primary) hypertension; J45.909 Unspecified asthma, uncomplicated; K21.9 Gastro-esophageal reflux disease without esophagitis; G47.00 Insomnia, unspecified; E66.01 Morbid (severe) obesity due to excess calories; Z68.35 Body mass index [BMI] 35.0-35.9, adult; Z96.653 Presence of artificial knee joint, bilateral; Z88.8 Allergy status to other drugs, medicaments and biological substances
CPT/HCPCS: 36415; 80053; 85027; 86593; 93005; 93010

== ENCOUNTER 2019-12-12 16:22 | Inpatient (IN) | payer OTHER ==
--- NOTE | 2019-12-12 20:22 | BHS.RME ---
Substance Use & Tx History - Last Treatment Date of last treatment: n/a Where was last treatment: [facility] ([facility] ([facility]tp) Physical/Psych/Mental Status - Behavior Eye Contact: Decreased - Cooperativeness Cooperativeness: Hostile - Physical Health Problems Is patient presently having any pain?: No Does patient presently have any injuries (include location): No Does patient currently have a fever: No Is patient : No CIWA Nausea/Vomitin-No Nausea/No Vomiting Muscle Tremors: 1-None Visible, but [place] Anxiety: 4-Mod. Anxious/Guarded Agitation: 2 Paroxysmal Sweats: 2 Orientation: 0-Oriented Tacttile Disturbances: 1-Very Mild Itch/Numbness Auditory Disturbances: 2-Mild Harshness/Frighten Visual Disturbances: 0-None Headache: 0-None Present CIWA-Ar Total Score: 12
[2019-12-12 20:46] VITALS: BMI 37.7
[2019-12-12] MEDS ORDERED: ALBUTEROL SO4 HFA INHALER IH PRN (21:12)
--- NOTE | 2019-12-12 21:12 | HP ---
CIWA Score Nausea/Vomitin-No Nausea/No Vomiting Muscle Tremors: 1-None Visible, but [place] Anxiety: 4-Mod. Anxious/Guarded Agitation: 2 Paroxysmal Sweats: 2 Orientation: 0-Oriented Tacttile Disturbances: 1-Very Mild Itch/Numbness Auditory Disturbances: 2-Mild Harshness/Frighten Visual Disturbances: 0-None Headache: 0-None Present CIWA-Ar Total Score: 12 - Admission Criteria OASAS Guidelines: Admission for Medically Managed Detox: Requires at least one of the followin. CIWA greater than 12 2. Seizures within the past 24 hours 3. Delirium tremens within the past 24 hours 4. Hallucinations within the past 24 hours 5. Acute intervention needed for co occurring medical disorder 6. Acute intervention needed for co occurring psychiatric disorder 7. Severe withdrawal that cannot be handled at a lower level of care (continued vomiting, continued diarrhea, abnormal vital signs) requiring intravenous medication and/or fluids 8. Admitting History and Physical - Past Medical History ...LMP: 02/26/12 ...: No - Smoking History Smoking history: Former smoker Have you smoked in the past 12 months: Yes Aproximately how many cigarettes per day: 10 - Alcohol/Substance Use Hx Alcohol Use: Yes Admission ROS S - HPI Allergies/Adverse Reactions: Allergies Allergy/AdvReac Type Severity Reaction Status Date / Time haloperidol [From Haldol] AdvReac stiffness Verified 12/12/19 20:38 haloperidol lactate AdvReac stiffness Verified 12/12/19 20:38 [From Haldol] History of Present Illness: pt here requesting detox from etoh use 1 pint x 2 mo , denies seizures, blackouts , reports tremors if not drinking alcohol. in [facility] on Rx Benzo ( klonopin ) PMHX : asthma , HTN , bipolar d/o , Exam Limitations: Clinical Condition - Review of Systems Constitutional: No Symptoms Reported EENT: reports: No Symptoms Reported Respiratory: reports: SOB with Exertion Cardiac: reports: No Symptoms Reported GI: reports: Constipated, Poor Appetite : reports: Burning (x 2 weeks) Musculoskeletal: reports: Muscle Pain, Other (chris TKR) Integumentary: reports: No Symptoms Reported Neuro: reports: Headache Endocrine: reports: No Symptoms Reported Hematology: reports: Anemia Psychiatric: reports: Orientated x3, Agitated, Anxious Patient History - Patient Medical History Hx Anemia: No Hx Asthma: Yes Hx Chronic Obstructive Pulmonary Disease (COPD): No Hx Cancer: No Hx Cardiac Disorders: No Hx Congestive Heart Failure: No Hx Hypertension: Yes Hx Hypercholesterolemia: No Hx Pacemaker: No HX Cerebrovascular Accident: No Hx Seizures: No Hx Dementia: No Hx Diabetes: No Hx Gastrointestinal Disorders: No Hx Liver Disease: No Hx Genitourinary Disorders: No Hx Sexually Transmitted Disorders: No Hx Renal Disease (ESRD): No Hx Thyroid Disease: No Hx Human Immunodeficiency Virus (HIV): No (NEGATIVE 2019) Hx Hepatitis C: No Hx Depression: Yes Hx Suicide Attempt: No Hx Bipolar Disorder: Yes Hx Schizophrenia: No - Patient Surgical History Past Surgical History: Yes Hx Neurologic Surgery: No Hx Cataract Extraction: No Hx Cardiac Surgery: No Hx Lung Surgery: No Hx Breast Surgery: No Hx Breast Biopsy: No Hx Abdominal Surgery: No Hx Appendectomy: No Hx Cholecystectomy: No Hx Genitourinary Surgery: No Hx Section: No Hx Orthopedic Surgery: Yes (chris. TKR IN 2013) Hx Hysterectomy: No Other Surgical History: removal of benign cyst, left breast/left hand Anesthesia Reaction: No - PPD History Previous Implant?: Yes Documented Results: Negative w/o proof Date: 08/25/19 Results: 0 MM - Reproductive History Last Menstrual Period: 02/26/12 Patient : No - Smoking Cessation Smoking history: Former smoker Have you smoked in the past 12 months: Yes Aproximately how many cigarettes per day: 10 Cigars Per Day: 0 Hx Chewing Tobacco Use: No Initiated information on smoking cessation: Yes 'Breaking Loose' booklet given: 12/12/19 - Substances abused Benzodiazepine (Klonopin) Substance route: Oral Frequency: Daily Amount used: 4mg Age of first use: 57 Date of last use: 12/12/19 Alcohol Substance route: Oral Frequency: 3-6 times per week Amount used: liquor- 1pints Age of first use: 57 Date of last use: 12/12/19 Heroin Substance route: Inhalation Frequency: 3-6 times per week Amount used: 2 bags Age of first use: 36 Date of last use: 12/11/19 Admission Physical Exam BHS - Vital Signs Vital Signs: Vital Signs - 24 hr 12/12/19 20:40 Temperature 97 F L Pulse Rate 82 Respiratory 20 Rate Blood Pressure 132/87 - Physical General Appearance: Yes: Disheveled, Anxious HEENTM: Yes: EOMI, Hearing grossly Normal, Normocephalic, Normal Voice Respiratory: Yes: Chest Non-Tender, Lungs Clear, Normal Breath Sounds, No Respiratory Distress, No Accessory Muscle Use Neck: Yes: No masses,lesions,Nodules, Trachea in good position Abdominal: Yes: Non Tender, Soft, Protuberent Musculoskeletal: Yes: Gait Steady Extremities: Yes: Normal Range of Motion, Non-Tender Neurological: Yes: Alert, Motor Strength 5/5 Integumentary: Yes: Warm - Diagnostic (1) Alcohol dependence with uncomplicated withdrawal Current Visit: Yes Status: Chronic (2) Opioid dependence on agonist therapy Current Visit: Yes Status: Chronic Breathalyzer - Breathalyzer Breathalyzer: 0 Urine Drug Screen - Test Device Lot number: [id number] Expiration date: 09/17/21 - Control Is test valid?: Yes - Results Drug screen NEGATIVE: No Urine drug screen results: MOP-Opiates, OXY-Oxycodone, MTD-Methadone, BZO- Benzodiazepines Inpatient Rehab Admission - Rehab Decision to Admit Inpatient rehab admission?: No
[2019-12-12] MEDS ORDERED: hydrOXYzine PAMOATE 25 MG CAPSULE (FP) PO PRN (21:13)
[2019-12-12] MEDS ORDERED: ACETAMINOPHEN 325 MG TABLET (FP) PO PRN ×2 (21:13)
[2019-12-12] MEDS ORDERED: MENTHOL/PHENOL 1 EACH UD MM PRN (21:13)
[2019-12-12] MEDS ORDERED: MAGNESIUM CITRATE 300 ML BOTTLE PO PRN (21:13)
[2019-12-12] MEDS ORDERED: METHOCARBAMOL 500 MG TABLET PO PRN (21:13)
[2019-12-12] MEDS ORDERED: BISMUTH SUBSALICYLATE 524 MG/30 ML UD PO PRN (21:13)
[2019-12-12] MEDS ORDERED: IBUPROFEN 400 MG TABLET (FP) PO PRN (21:13)
[2019-12-12] MEDS ORDERED: MAG HYDROX/AL HYDROX/SIMETH 30 ML UNIT-DOSE CUP PO PRN (21:13)
[2019-12-12] MEDS ORDERED: MAGNESIUM HYDROX 2400MG/30ML ORAL SUSPENSION 30 ML CUP PO PRN (21:13)
[2019-12-12] MEDS ORDERED: QUEtiapine FUMARATE 100 MG TABLET (FP) PO ONE (22:00)
[2019-12-12] MEDS: THIAMINE HCL 100 MG TABLET (FP) PO SCH (22:34)
[2019-12-12] MEDS: diazePAM 5 MG TABLET PO SCH (22:34)
[2019-12-12] MEDS: MELATONIN 5 MG TABLETS PO PRN (22:36)
[2019-12-13] MEDS: diazePAM 5 MG TABLET PO SCH ×3 (05:56→22:22)
[2019-12-13] MEDS ORDERED: METHADONE HCL 10 MG TABLET ONE (09:14)
[2019-12-13] MEDS ORDERED: METHADONE HCL 40 MG DISPERSABLE TABLET ONE (09:15)
[2019-12-13] MEDS: PRENATAL VITAMINS W/ FOLIC ACID TABLET (FP) PO SCH (09:32)
--- NOTE | 2019-12-13 09:42 | EKG ---
Test Reason : Blood Pressure : / mmHG Vent. Rate : 067 BPM Atrial Rate : 067 BPM P-R Int : 202 ms QRS Dur : 090 ms QT Int : 412 ms P-R-T Axes : 066 045 045 degrees QTc Int : 435 ms NORMAL SINUS RHYTHM SEPTAL INFARCT , AGE UNDETERMINED ABNORMAL ECG WHEN COMPARED WITH ECG OF 25-AUG-2019 13:40, SEPTAL INFARCT IS NOW PRESENT Confirmed by Dung Cote MD ([id number]) on 12/13/2019 9:42:09 AM Referred By: Confirmed By:Dung Cote MD
[2019-12-13] MEDS ORDERED: METHADONE HCL 10 MG TABLET PO ONE (10:00)
[2019-12-13] MEDS ORDERED: METHADONE 40 MG, METHADONE 10 MG PO ONE (10:00)
[2019-12-13 10:05] LABS: HEMATOCRIT 36.4 % (32.4-45.2); HEMOGLOBIN 11.8 GM/dL (10.7-15.3); MCH 26.1 pg (25.7-33.7); MCHC 32.4 g/dl (32.0-36.0); MEAN CELL VOLUME 80.5 fl (80-96); MEAN PLT VOLUME 8.6 fl (7.5-11.1); PLATELET COUNT 192 K/MM3 (134-434); RBC 4.52 M/mm3 (3.60-5.2); WHITE BLOOD COUNT 4.3 K/mm3 (4.0-10.0)
[2019-12-13 10:17] LABS: ALBUMIN 3.2 g/dl (3.4-5.0); BILIRUBIN,TOTAL 0.5 mg/dL (0.2-1); BLOOD UREA NITROGEN 21.4 mg/dL (7-18); CALCIUM 8.6 mg/dL (8.5-10.1); CREATININE 0.8 mg/dL (0.55-1.3); POTASSIUM 3.9 mmol/L (3.5-5.1); TOT PROT 6.5 g/dl (6.4-8.2)
[2019-12-13] MEDS: diazePAM 5 MG TABLET PO PRN ×2 (12:37→18:03)
--- NOTE | 2019-12-13 14:14 | PN ---
[facility] CIWA - CIWA Score Nausea/Vomitin-Mild Nausea/No Vomiting Muscle Tremors: 3 Anxiety: 3 Agitation: 0-Normal Activity Paroxysmal Sweats: 2 Orientation: 0-Oriented Tacttile Disturbances: 1-Very Mild Itch/Numbness Auditory Disturbances: 0-None Visual Disturbances: 0-None Headache: 1-Very Mild CIWA-Ar Total Score: 11 S Progress Note (SOAP) Subjective: 59 years old female admitted on 12/12/19 for alcohol and benzo withdrawal sx management treating with valium detox regiment received methadone 50 mg today requests detox off methadone due to the level of dosage encourage the patient return to methadone program for further colleen off process Objective: 12/13/19 14:13 Vital Signs Temperature 96.8 F L 12/13/19 12:30 Pulse Rate 71 12/13/19 12:30 Respiratory Rate 18 12/13/19 12:30 Blood Pressure 104/73 12/13/19 12:30 O2 Sat by Pulse Oximetry (%) Laboratory Last Values WBC 4.3 K/mm3 (4.0-10.0) 12/13/19 07:30 RBC 4.52 M/mm3 (3.60-5.2) 12/13/19 07:30 Hgb 11.8 GM/dL (10.7-15.3) 12/13/19 07:30 Hct 36.4 % (32.4-45.2) 12/13/19 07:30 MCV 80.5 fl (80-96) 12/13/19 07:30 MCH 26.1 pg (25.7-33.7) 12/13/19 07:30 MCHC 32.4 g/dl (32.0-36.0) 12/13/19 07:30 RDW 15.0 % (11.6-15.6) 12/13/19 07:30 Plt Count 192 K/MM3 (134-434) 12/13/19 07:30 MPV 8.6 fl (7.5-11.1) 12/13/19 07:30 Sodium 140 mmol/L (136-145) 12/13/19 07:30 Potassium 3.9 mmol/L (3.5-5.1) 12/13/19 07:30 Chloride 107 mmol/L (98-107) 12/13/19 07:30 Carbon Dioxide 28 mmol/L (21-32) 12/13/19 07:30 Anion Gap 5 MMOL/L (8-16) L 12/13/19 07:30 BUN 21.4 mg/dL (7-18) H 12/13/19 07:30 Creatinine 0.8 mg/dL (0.55-1.3) 12/13/19 07:30 Est GFR (CKD-EPI)AfAm 94.19 12/13/19 07:30 Est GFR (CKD-EPI)NonAf 81.27 12/13/19 07:30 Random Glucose 125 mg/dL (74-106) H 12/13/19 07:30 Calcium 8.6 mg/dL (8.5-10.1) 12/13/19 07:30 Total Bilirubin 0.5 mg/dL (0.2-1) 12/13/19 07:30 AST 16 U/L (15-37) 12/13/19 07:30 ALT 23 U/L (13-61) 12/13/19 07:30 Alkaline Phosphatase 96 U/L (45-117) 12/13/19 07:30 Total Protein 6.5 g/dl (6.4-8.2) 12/13/19 07:30 Albumin 3.2 g/dl (3.4-5.0) L 12/13/19 07:30 POC Urine HCG, Qual Negative 12/12/19 19:25 RPR Titer Nonreactive (NONREACTIVE) 12/13/19 07:30 lab noted Assessment: 12/13/19 14:14 alcohol and benzo withdrawal Plan: valium regiment
--- NOTE | 2019-12-13 17:08 | CONSULT ---
[facility] Consult - Data Date of interview: 12/13/19 [facility] Identifying data: Revisit to [facility] and admission to [address] [place] [address] for this 59 y/o female, self-referred for detoxification treatment. MERRY issues : alcohol, opioid, xanax, nicotine. Patient is , a mother of two, domiciled, unemployed and supported on SSI benefits. Substance Abuse History: Discussed with the patient. Details in current [facility] report as ffollows : Smoking history: Former smoker. Have you smoked in the past 12 months: Yes. Aproximately how many cigarettes per day: 10. Cigars Per Day: 0. Hx Chewing Tobacco Use: No. Initiated information on smoking cessation : Yes. 'Breaking Loose' booklet given: 12/12/19. - Substances abused. Benzodiazepine (Klonopin). Substance route: Oral. Frequency: Daily. Amount used: 4mg. Age of first use: 57. Date of last use: 12/12/19. Alcohol. Substance route: Oral. Frequency: 3-6 times per week. Amount used: liquor- 1pints. Age of first use: 57. Date of last use: 12/12/19. Heroin. Substance route: Inhalation. Frequency: 3-6 times per week. Amount used: 2 bags. Age of first use: 36. Date of last use: 12/11/19 Medical History: Remarkable for bronchial asthma, hypertension, seizure disorder , GERD and a history of bilateral knee replacement (2013). Psychiatric History: Onset of psychiatric disturbances : age 18. Patient endorses a history of two psychiatric hospitalizations, two years ago, at the [facility] in the [place] (both hospitalizations). Diagnosed with Bipolar Disorder. Treated with seroquel 100 mg/hs. Sees a psychiatrist for medication management at one of the [facility] clinics ([address] [place] [address]) in the [place]. Ms Henry is on methadone maintenance (50 mg/day) at [facility] MMTP program located at [address] [place] [address] ([place]). Patient denies history of suicide attempts. Physical/Sexual Abuse/Trauma History: Not discussed. Patient declines. Additional Comment: Urine drug screen results: MOP-Opiates, OXY-Oxycodone, MTD- Methadone, BZO-Benzodiazepines. Noted. Mental Status Exam - Mental Status Exam Alert and Oriented to: Time, Place, Person Cognitive Function: Good Patient Appearance: Unkempt, Disheveled (obese) Mood: Withdrawn, Hopeful Affect: Mood Congruent, Constricted Patient Behavior: Fatigued, Cooperative Speech Pattern: Clear Voice Loudness: Normal Thought Process: Goal Oriented Thought Disorder: Not Present Hallucinations: Denies Suicidal Ideation: Denies Homicidal Ideation: Denies Insight/Judgement: Poor Sleep: Poorly, Difficulty falling asleep Appetite: Good Gait/Station: Normal Psychiatric Findings - Problem List ([place] 1, 2,3) (1) Alcohol dependence with uncomplicated withdrawal Current Visit: Yes Status: Acute (2) Sedative, hypnotic or anxiolytic dependence with withdrawal, uncomplicated Current Visit: Yes Status: Acute (3) Opioid dependence on agonist therapy Current Visit: Yes Status: Chronic (4) Nicotine dependence Current Visit: Yes Status: Chronic Qualifiers: Nicotine product type: cigarettes Substance use status: uncomplicated Qualified Code(s): F17.210 - Nicotine dependence, cigarettes, uncomplicated (5) Bipolar disorder Current Visit: Yes Status: Chronic Comment: According to self-reported history. (6) Insomnia Current Visit: Yes Status: Chronic - Initial Treatment Plan Initial Treatment Plan: Psychoeducation. Sleep hygiene. Detoxification. AA/NA meetings. Seroquel 100 mg po hs. Ordered. Side effects/benefits discussed with patient. Ms Henry is in agreement with this plan of care. Observation.
[2019-12-13] MEDS: THIAMINE HCL 100 MG TABLET (FP) PO SCH (22:21)
[2019-12-13] MEDS: QUEtiapine FUMARATE 100 MG TABLET (FP) PO SCH (22:21)
[2019-12-13] MEDS: MELATONIN 5 MG TABLETS PO PRN (22:22)
[2019-12-14] MEDS: diazePAM 5 MG TABLET PO PRN ×2 (01:10→09:41)
[2019-12-14] MEDS ORDERED: METHADONE HCL 10 MG TABLET ONE (04:04)
[2019-12-14] MEDS ORDERED: METHADONE HCL 40 MG DISPERSABLE TABLET ONE (04:04)
[2019-12-14] MEDS: METHADONE 40 MG, METHADONE 10 MG PO SCH (05:46)
[2019-12-14] MEDS: diazePAM 5 MG TABLET PO SCH ×2 (05:46→17:44)
[2019-12-14] MEDS ORDERED: METHADONE HCL 10 MG TABLET PO SCH (06:00)
--- NOTE | 2019-12-14 09:16 | PN ---
S CIWA - CIWA Score Nausea/Vomitin-No Nausea/No Vomiting Muscle Tremors: 2 Anxiety: 3 Agitation: 0-Normal Activity Paroxysmal Sweats: 1-Minimal Palms Moist Orientation: 0-Oriented Tacttile Disturbances: 0-None Auditory Disturbances: 0-None Visual Disturbances: 0-None Headache: 0-None Present CIWA-Ar Total Score: 6 BHS Progress Note (SOAP) Subjective: 59 years old female admitted on 12/12/19 for alcohol and benzo withdrawal sx management treating with valium detox regiment seen by psychiatrolga lidia gilliam [facility] month medication supply of indraoquegonzalez reports difficulty moving hard stool MOM x 1 dose now and Citroma x 1 around 12 pm today Objective: 12/14/19 09:20 Vital Signs Temperature 97.0 F L 12/14/19 06:53 Pulse Rate 62 12/14/19 06:53 Respiratory Rate 18 12/14/19 06:53 Blood Pressure 114/67 12/14/19 06:53 O2 Sat by Pulse Oximetry (%) Laboratory Last Values WBC 4.3 K/mm3 (4.0-10.0) 12/13/19 07:30 RBC 4.52 M/mm3 (3.60-5.2) 12/13/19 07:30 Hgb 11.8 GM/dL (10.7-15.3) 12/13/19 07:30 Hct 36.4 % (32.4-45.2) 12/13/19 07:30 MCV 80.5 fl (80-96) 12/13/19 07:30 MCH 26.1 pg (25.7-33.7) 12/13/19 07:30 MCHC 32.4 g/dl (32.0-36.0) 12/13/19 07:30 RDW 15.0 % (11.6-15.6) 12/13/19 07:30 Plt Count 192 K/MM3 (134-434) 12/13/19 07:30 MPV 8.6 fl (7.5-11.1) 12/13/19 07:30 Sodium 140 mmol/L (136-145) 12/13/19 07:30 Potassium 3.9 mmol/L (3.5-5.1) 12/13/19 07:30 Chloride 107 mmol/L (98-107) 12/13/19 07:30 Carbon Dioxide 28 mmol/L (21-32) 12/13/19 07:30 Anion Gap 5 MMOL/L (8-16) L 12/13/19 07:30 BUN 21.4 mg/dL (7-18) H 12/13/19 07:30 Creatinine 0.8 mg/dL (0.55-1.3) 12/13/19 07:30 Est GFR (CKD-EPI)AfAm 94.19 12/13/19 07:30 Est GFR (CKD-EPI)NonAf 81.27 12/13/19 07:30 Random Glucose 125 mg/dL (74-106) H 12/13/19 07:30 Calcium 8.6 mg/dL (8.5-10.1) 12/13/19 07:30 Total Bilirubin 0.5 mg/dL (0.2-1) 12/13/19 07:30 AST 16 U/L (15-37) 12/13/19 07:30 ALT 23 U/L (13-61) 12/13/19 07:30 Alkaline Phosphatase 96 U/L (45-117) 12/13/19 07:30 Total Protein 6.5 g/dl (6.4-8.2) 12/13/19 07:30 Albumin 3.2 g/dl (3.4-5.0) L 12/13/19 07:30 POC Urine HCG, Qual Negative 12/12/19 19:25 RPR Titer Nonreactive (NONREACTIVE) 12/13/19 07:30 lab noted glucose elevation encourage weight loss Assessment: 12/14/19 09:22 alcohol and benzo withdrawal Plan: valium regiment
[2019-12-14] MEDS ORDERED: MAGNESIUM HYDROX 2400MG/30ML ORAL SUSPENSION 30 ML CUP PO ONE (09:17)
[2019-12-14] MEDS: PRENATAL VITAMINS W/ FOLIC ACID TABLET (FP) PO SCH (09:40)
[2019-12-14] MEDS ORDERED: MAGNESIUM CITRATE 300 ML BOTTLE PO ONE (12:00)
[2019-12-14] MEDS: QUEtiapine FUMARATE 100 MG TABLET (FP) PO SCH (22:15)
[2019-12-14] MEDS: THIAMINE HCL 100 MG TABLET (FP) PO SCH (22:16)
[2019-12-15] MEDS ORDERED: METHADONE HCL 10 MG TABLET ONE (04:34)
[2019-12-15] MEDS ORDERED: METHADONE HCL 40 MG DISPERSABLE TABLET ONE (04:34)
[2019-12-15] MEDS ORDERED: diazePAM 5 MG TABLET PO ONE (06:00)
[2019-12-15] MEDS: METHADONE 40 MG, METHADONE 10 MG PO SCH (06:32)
--- NOTE | 2019-12-15 10:23 | DS ---
[facility] Detox Discharge Summary Admission Date: 12/12/19 Discharge Date: 12/15/19 - History Present History: Alcohol Dependence, Opioid Dependence, Sedative Dependence, MMTP Pertinent Past History: Pt admitted for detox from alcohol. Pt is on methadone MAT. And also receiving controlled substances from PCP as noted below ISTOP shows Endocet prescription that she rec'd on 11/29/19: #69 and on 11/23 #21 [place] getting Klonopin 2mg #90, rec'd on 11/23/19 Admission history: 59 years old female admitted on 12/12/19 for alcohol and benzo withdrawal sx management treating with valium detox regiment Laboratory Tests 12/12/19 12/13/19 12/13/19 19:25 07:30 07:30 WBC 4.3 RBC 4.52 Hgb 11.8 Hct 36.4 MCV 80.5 MCH 26.1 MCHC 32.4 RDW 15.0 Plt Count 192 MPV 8.6 Sodium 140 Potassium 3.9 Chloride 107 Carbon Dioxide 28 Anion Gap 5 L BUN 21.4 H Creatinine 0.8 Est GFR (CKD-EPI)AfAm 94.19 Est GFR (CKD-EPI)NonAf 81.27 Random Glucose 125 H Calcium 8.6 Total Bilirubin 0.5 AST 16 ALT 23 Alkaline Phosphatase 96 Total Protein 6.5 Albumin 3.2 L POC Urine HCG, Qual Negative RPR Titer 12/13/19 07:30 WBC RBC Hgb Hct MCV MCH MCHC RDW Plt Count MPV Sodium Potassium Chloride Carbon Dioxide Anion Gap BUN Creatinine Est GFR (CKD-EPI)AfAm Est GFR (CKD-EPI)NonAf Random Glucose Calcium Total Bilirubin AST ALT Alkaline Phosphatase Total Protein Albumin POC Urine HCG, Qual RPR Titer Nonreactive Vital Signs - 24 hr 12/14/19 12/14/19 12/15/19 12:01 20:53 00:30 Temperature 98.2 F 97.9 F Pulse Rate 61 80 Respiratory 16 16 20 Rate Blood Pressure 121/69 130/99 12/15/19 07:36 Temperature 97.2 F L Pulse Rate 68 Respiratory 18 Rate Blood Pressure 125/66 Active Medications Acetaminophen (Tylenol -) 650 mg PO Q6H PRN PRN Reason: PAIN LEVEL 4 - 6 Acetaminophen (Tylenol -) 650 mg PO Q6H PRN PRN Reason: FEVER Al Hydroxide/Mg Hydroxide (Mylanta Oral Suspension -) 30 ml PO Q6H PRN PRN Reason: DYSPEPSIA Albuterol Sulfate (Ventolin Hfa Inhaler -) 1 puff IH Q4H PRN PRN Reason: SHORT OF BREATH/WHEEZING Bismuth Subsalicylate (Pepto-Bismol -) 524 mg PO Q1H PRN PRN Reason: DIARRHEA Diazepam (Valium -) 10 mg PO Q4H PRN PRN Reason: WITHDRAWAL(CONT SUBST) Stop: 12/15/19 21:14 Last Admin: 12/14/19 09:41 Dose: 10 mg Eucalyptus/Menthol/Phenol/Sorbitol (Cepastat Lozenge -) 1 each MM Q4H PRN PRN Reason: SORE THROAT Stop: 12/18/19 21:14 Hydroxyzine Pamoate (Vistaril -) 25 mg PO Q6H PRN PRN Reason: For Anxiety Stop: 12/18/19 21:14 Ibuprofen (Motrin -) 400 mg PO Q6H PRN PRN Reason: PAIN LEVEL 1 - 3 Magnesium Citrate (Citroma -) 300 ml PO Q48H PRN PRN Reason: CONSTIPATION Last Admin: 12/14/19 09:41 Dose: 300 ml Magnesium Hydroxide (Milk Of Magnesia -) 30 ml PO PRN PRN PRN Reason: CONSTIPATION Melatonin (Melatonin) 5 mg PO HS PRN PRN Reason: INSOMNIA Last Admin: 12/13/19 22:22 Dose: 5 mg Methadone HCl 40 mg/ Methadone (HCl 10 mg) 50 mg PO DAILY@0600 [facility] Stop: 12/20/19 05:59 Last Admin: 12/15/19 06:32 Dose: 50 mg Methocarbamol (Robaxin -) 500 mg PO Q6H PRN PRN Reason: MUSCLE SPASMS Stop: 12/18/19 21:14 Multivit/Folic Acid/Iron ( Vitamins (Sjr) -) 1 tab PO DAILY [facility] Last Admin: 12/14/19 09:40 Dose: 1 tab Quetiapine Fumarate (Seroquel -) 100 mg PO HS [facility] Last Admin: 12/14/19 22:15 Dose: 100 mg Thiamine HCl (Vitamin B1 -) 100 mg PO HS [facility] Last Admin: 12/14/19 22:16 Dose: 100 mg - Physical Exam Results Vital Signs: Vital Signs Temperature 97.2 F L 12/15/19 07:36 Pulse Rate 68 12/15/19 07:36 Respiratory Rate 18 12/15/19 07:36 Blood Pressure 125/66 12/15/19 07:36 O2 Sat by Pulse Oximetry (%) - Treatment Hospital Course: Detox Protocol Followed, Detoxed Safely, Responded well, Discharged Condition Good, Rehab Referral Accepted - Medication Discharge Medications: Ambulatory Orders Quetiapine Fumarate [Seroquel -] 100 mg PO DAILY 03/07/19 Albuterol Sulfate Inhaler - [Ventolin HFA Inhaler -] 1 puff IH Q4H PRN #1 inhaler 12/14/19 - AMA Did Patient Leave Against Medical Advice: No
[2019-12-15] MEDS: PRENATAL VITAMINS W/ FOLIC ACID TABLET (FP) PO SCH (10:27)
[2019-12-15 12:16] VITALS: BP 157/87; PULSE 84; TEMP 97.8
== END 2019-12-15 13:40 | disposition other institution (70) | DRG 773 ==
LOC: YASAS 16:22 → Y3N 21:44 → Y6N 12-14 14:08
PROVIDERS: ADMIT Allergy & Immunology; ATTEND Allergy & Immunology
PROC: HZ2ZZZZ Detoxification Services for Substance Abuse Treatment (ICD-10-PCS; principal; 2019-12-12)
DX: F10.230 Alcohol dependence with withdrawal, uncomplicated (principal); F11.20 Opioid dependence, uncomplicated; F13.230 Sedative, hypnotic or anxiolytic dependence with withdrawal, uncomplicated; F17.210 Nicotine dependence, cigarettes, uncomplicated; F31.9 Bipolar disorder, unspecified; G40.909 Epilepsy, unspecified, not intractable, without status epilepticus; G47.00 Insomnia, unspecified; I10 Essential (primary) hypertension; J45.998 Other asthma; R73.9 Hyperglycemia, unspecified; E66.9 Obesity, unspecified; Z68.37 Body mass index [BMI] 37.0-37.9, adult; Z96.653 Presence of artificial knee joint, bilateral; Z88.8 Allergy status to other drugs, medicaments and biological substances
CPT/HCPCS: 36415; 80053; 81025; 85027; 86593; 93005; 93010

== ENCOUNTER 2019-12-15 15:52 | Inpatient (IN) | payer OTHER ==
[2019-12-15] MEDS ORDERED: LOPERAMIDE HCL 2 MG CAPSULE PO PRN (16:49)
[2019-12-15] MEDS ORDERED: guaiFENesin 200 MG/10 ML 10 ML UNIT-DOSE CUPS PO PRN (16:49)
[2019-12-15] MEDS ORDERED: MENTHOL/PHENOL 1 EACH UD MM PRN (16:49)
[2019-12-15] MEDS ORDERED: ALBUTEROL SO4 HFA INHALER IH PRN (16:49)
[2019-12-15] MEDS ORDERED: IBUPROFEN 400 MG TABLET (FP) PO PRN (16:49)
[2019-12-15] MEDS ORDERED: P-EPHED 60MG/TRIPROLIDI 2.5MG TABLET PO PRN (16:49)
[2019-12-15] MEDS ORDERED: MAGNESIUM CITRATE 300 ML BOTTLE PO PRN (16:49)
[2019-12-15] MEDS ORDERED: MAG HYDROX/AL HYDROX/SIMETH 30 ML UNIT-DOSE CUP PO PRN (16:49)
[2019-12-15] MEDS ORDERED: ACETAMINOPHEN 325 MG TABLET (FP) PO PRN (16:49)
[2019-12-15] MEDS ORDERED: MELATONIN 5 MG TABLETS PO PRN (22:00)
[2019-12-15] MEDS: THIAMINE HCL 100 MG TABLET (FP) PO SCH (22:48)
[2019-12-16] MEDS ORDERED: METHADONE HCL 10 MG TABLET PO SCH (07:30)
[2019-12-16] MEDS ORDERED: METHADONE HCL 10 MG TABLET ONE (07:51)
[2019-12-16] MEDS ORDERED: METHADONE HCL 40 MG DISPERSABLE TABLET ONE (07:52)
[2019-12-16] MEDS: METHADONE 40 MG, METHADONE 10 MG PO SCH (07:56)
--- NOTE | 2019-12-16 08:41 | HP ---
[facility] Rehab Assess/Revision - Admission History Admitted to Rehab from: Y Date of Admission to Rehab: 12/15/19 - Vital signs Vital Signs: Vital Signs Period Temp Pulse Resp BP Sys/Andrade Pulse Ox Last 24 Hr 97.6 F 68 16-18 122/76 - Findings Detox History & Physical reviewed: Yes Concur with findings: Yes Comments/Additional Findings: Pt is a 59 y/o female with a hx of AUD admitted to rehab after completing detox on .Pt is aon MMTP with 50 mg po daily. Pt reports she has a primary care provider Dr. Darryl Brunner at [facility]. PMHx:Asthma,HTN,chris. Total Knee Replacement(2013). Psych Hx:Bipolar d/o. Aler o x 3. nad. oob ambulating with steady gait. extremities/skin:no edema,skin intact. Addendum:pt c/o no BM x 5 days and requests Bowel Aid. Plan:Enema x 1. Colace 100 mg po TID Inpatient Rehab Admission - Rehab Decision to Admit Inpatient rehab admission?: Yes - Initial Determination Are CD services needed?: Yes Free of communicable disease: Yes Not in need of hospitalization: Yes - Rehab Admission Criteria Previous failed treatment: Yes Poor recovery environment: Yes Comorbidities: Yes Lacks judgement: Yes Patient is meeting Inpatient Rehab admission criteria:: Yes
[2019-12-16] MEDS: PRENATAL VITAMINS W/ FOLIC ACID TABLET (FP) PO SCH (10:14)
[2019-12-16] MEDS ORDERED: PT OWN MED DRAWER 7, Y5N ONE ×2 (10:26→16:36)
[2019-12-16] MEDS: hydrOXYzine PAMOATE 25 MG CAPSULE (FP) PO PRN (10:38)
[2019-12-16] MEDS ORDERED: FLU VACCINE QUAD 60 MCG/0.5 ML (MDV 19-20) IM ONE (12:00)
--- NOTE | 2019-12-16 12:07 | CONSULT ---
[facility] Psychiatric Consult - Data Date of interview: 12/16/19 Admission source: [facility] Identifying data: Patient is a 59 year old single female, mother of two , domiciled, unemployed, and supported on SSI benefits. This is one of multiple admissions for patient. Patient admitted to for alcohol, opioid, xanax, and nicotine dependence. Substance Abuse History: Smoking Cessation. Smoking history: Former smoker. Have you smoked in the past 12 months: Yes. Aproximately how many cigarettes per day: 10. Cigars Per Day: 0. Hx Chewing Tobacco Use: No. Initiated information on smoking cessation: Yes. 'Breaking Loose' booklet given: . - Substances abused. Benzodiazepine (Klonopin). Substance route: Oral. Frequency: Daily. Amount used: 4mg. Age of first use: 57. Date of last use: 12/12/19. Alcohol. Substance route: Oral. Frequency: 3-6 times per week. Amount used: liquor- 1pints. Age of first use: 57. Date of last use : 12/12/19. Heroin. Substance route: Inhalation. Frequency: 3-6 times per week. Amount used: 2 bags. Age of first use: 36. Date of last use: 12/11/19 Medical History: Remarkable for bronchial asthma, hypertension, seizure disorder , GERD and a history of bilateral knee replacement (2013). Psychiatric History: Patient's first psychiatric contact was at 18 years of age after she was admitted to [facility] secondary to a suicide attempt. She reports additional hospitalizations at [facility] and [facility]. Diagnosed with Bipolar Disorder. States that she see's a psychiatrist at one of the [facility] clinics and is prescribed seroquel 100mg HS. Patient seen by Dr. Riojas in detox and was prescribed seroquel 100mg. At present patient is mildly irritable. She denies thoughts or urges to hurtself. Physical/Sexual Abuse/Trauma History: Refuses discuss Mental Status Exam - Mental Status Exam Alert and Oriented to: Time, Place, Person Cognitive Function: Good Patient Appearance: Well Groomed Mood: Irritable Affect: Mood Congruent Patient Behavior: Cooperative Speech Pattern: Appropriate Voice Loudness: Normal Thought Process: Goal Oriented Thought Disorder: Not Present Hallucinations: Denies Suicidal Ideation: Denies Homicidal Ideation: Denies Insight/Judgement: Poor Sleep: Poorly Appetite: Fair Muscle strength/Tone: Normal Gait/Station: Normal Psychiatric Findings - Problem List ([place] 1, 2,3) (1) Bipolar disorder Status: Chronic Comment: According to self-reported history. (2) Opioid dependence on agonist therapy Status: Chronic (3) Sedative hypnotic or anxiolytic dependence Status: Acute (4) Nicotine dependence Status: Chronic Qualifiers: Nicotine product type: cigarettes Substance use status: uncomplicated Qualified Code(s): F17.210 - Nicotine dependence, cigarettes, uncomplicated - Initial Treatment Plan Initial Treatment Plan: Psychoeducation provided. Rehab in progress. Will order Seroquel 100mg HS. Benefits and side effects discussed. Verbal consent given.
[2019-12-16] MEDS: MAGNESIUM HYDROX 2400MG/30ML ORAL SUSPENSION 30 ML CUP PO PRN (13:08)
[2019-12-16] MEDS ORDERED: SODIUM PHOSPHATE/NA BIPHOS 133 ML ENEMA PR PRN (15:12)
[2019-12-16] MEDS: QUEtiapine FUMARATE 100 MG TABLET (FP) PO SCH (21:48)
[2019-12-16] MEDS: THIAMINE HCL 100 MG TABLET (FP) PO SCH (21:48)
[2019-12-16] MEDS: DOCUSATE SODIUM 100 MG CAPSULE (FP) PO SCH (21:49)
[2019-12-17] MEDS ORDERED: METHADONE HCL 10 MG TABLET ONE (06:13)
[2019-12-17] MEDS ORDERED: METHADONE HCL 40 MG DISPERSABLE TABLET ONE (06:14)
[2019-12-17] MEDS: METHADONE 40 MG, METHADONE 10 MG PO SCH (07:06)
[2019-12-17] MEDS: DOCUSATE SODIUM 100 MG CAPSULE (FP) PO SCH ×3 (07:06→21:23)
[2019-12-17] MEDS: PRENATAL VITAMINS W/ FOLIC ACID TABLET (FP) PO SCH (10:29)
[2019-12-17] MEDS: hydrOXYzine PAMOATE 25 MG CAPSULE (FP) PO PRN ×2 (10:29→21:23)
[2019-12-17] MEDS: THIAMINE HCL 100 MG TABLET (FP) PO SCH (21:23)
[2019-12-17] MEDS: QUEtiapine FUMARATE 100 MG TABLET (FP) PO SCH (21:23)
[2019-12-18] MEDS ORDERED: METHADONE HCL 10 MG TABLET ONE (06:10)
[2019-12-18] MEDS ORDERED: METHADONE HCL 40 MG DISPERSABLE TABLET ONE (06:10)
[2019-12-18] MEDS: DOCUSATE SODIUM 100 MG CAPSULE (FP) PO SCH ×3 (06:58→21:39)
[2019-12-18] MEDS: METHADONE 40 MG, METHADONE 10 MG PO SCH (06:58)
[2019-12-18] MEDS: PRENATAL VITAMINS W/ FOLIC ACID TABLET (FP) PO SCH (10:25)
[2019-12-18] MEDS: hydrOXYzine PAMOATE 25 MG CAPSULE (FP) PO PRN ×2 (16:59→21:39)
[2019-12-18] MEDS: MAGNESIUM HYDROX 2400MG/30ML ORAL SUSPENSION 30 ML CUP PO PRN (17:36)
[2019-12-18] MEDS: THIAMINE HCL 100 MG TABLET (FP) PO SCH (21:39)
[2019-12-18] MEDS: QUEtiapine FUMARATE 100 MG TABLET (FP) PO SCH (21:39)
[2019-12-19] MEDS ORDERED: METHADONE HCL 10 MG TABLET ONE (06:17)
[2019-12-19] MEDS ORDERED: METHADONE HCL 40 MG DISPERSABLE TABLET ONE (06:17)
[2019-12-19] MEDS: METHADONE 40 MG, METHADONE 10 MG PO SCH (06:28)
[2019-12-19] MEDS: DOCUSATE SODIUM 100 MG CAPSULE (FP) PO SCH (06:28)
[2019-12-19] MEDS: hydrOXYzine PAMOATE 25 MG CAPSULE (FP) PO PRN (06:28)
[2019-12-19 07:12] VITALS: BP 135/79; PULSE 94; TEMP 97.2
--- NOTE | 2019-12-19 09:45 | DS ---
[facility] Discharge Summary - [facility] Discharge Summary Admission Date: 12/15/19 Discharge Date: 12/19/19 - History Present History: Alcohol dependence, MMTP, Sedative dependence - Discharge Physical Exam Vital Signs: Vital Signs Temperature 97.2 F L 12/19/19 06:27 Pulse Rate 94 H 12/19/19 06:27 Respiratory Rate 18 12/19/19 06:27 Blood Pressure 135/79 12/19/19 06:27 O2 Sat by Pulse Oximetry (%) ROS: denies sweating, shakes, chest pain and sob. Patient c/o constipation-despite medical intervention and is irritable towards staff. She denies n/v/d and fever. PE: alert and oriented x 3 skin warm and dry in no acute distress-exam limited due to irritability towards staff ext full rom, amb ad eric no tremors denies si/hi Ambulatory Orders Quetiapine Fumarate [Seroquel -] 100 mg PO DAILY 03/07/19 Albuterol Sulfate Inhaler - [Ventolin HFA Inhaler -] 1 puff IH Q4H PRN #1 inhaler 12/14/19 A/P sedative/mmtp/etoh dependence patient signed out ama - Treatment Hospital Course: Patient admitted 12/15/2019 to rehab for sedative and alcohol dependence. Patient decided to sign out AMA today stating " this place is unprofessional and I want to get the hell out of here!". Patient is very irritable and verbally agitated towards staff. [employer] Research Engineer attempted to discuss aftercare with patient but she continued to argue about her clothing and belongings with staff. Patient continued with AMA process and signed out AMA. - Medication Discharge Medications: Ambulatory Orders Quetiapine Fumarate [Seroquel -] 100 mg PO DAILY 03/07/19 Albuterol Sulfate Inhaler - [Ventolin HFA Inhaler -] 1 puff IH Q4H PRN #1 inhaler 12/14/19 - Medication-Assisted Treatment (MAT) Medication-Assisted Treatment (MAT): Yes MAT Follow-up Referral: MMTP - Discharge Instructions Diet, activity, other medical instructions: Diet: regular as george Activity: as tolerated Other medical instructions: follow up with pcp as recommended - Follow-up Referral Minutes to complete discharge: 35 - AMA Did Patient Leave Against Medical Advice: Yes
[2019-12-19] MEDS: PRENATAL VITAMINS W/ FOLIC ACID TABLET (FP) PO SCH (10:14)
== END 2019-12-19 10:47 | disposition left against medical advice (07) | DRG 770 ==
LOC: YASAS 15:52 → Y3E 15:53
PROVIDERS: ADMIT Allergy & Immunology; ATTEND Allergy & Immunology
PROC: HZ42ZZZ Group Counseling for Substance Abuse Treatment, Cognitive-Behavioral (ICD-10-PCS; principal; 2019-12-15)
DX: F10.20 Alcohol dependence, uncomplicated (principal); F11.20 Opioid dependence, uncomplicated; F13.20 Sedative, hypnotic or anxiolytic dependence, uncomplicated; F31.9 Bipolar disorder, unspecified; G40.909 Epilepsy, unspecified, not intractable, without status epilepticus; I10 Essential (primary) hypertension; J45.909 Unspecified asthma, uncomplicated; K21.9 Gastro-esophageal reflux disease without esophagitis; Z87.891 Personal history of nicotine dependence; Z88.8 Allergy status to other drugs, medicaments and biological substances; Z91.5 Personal history of self-harm

== ENCOUNTER 2021-04-04 16:55 | Inpatient (IN) | payer OTHER ==
[2021-04-04] MEDS ORDERED: NICOTINE POLACRILEX 2 MG GUM BUC PRN (19:48)
[2021-04-04] MEDS ORDERED: ONDANSETRON *ODT* 4 MG TABLET SL PRN (19:48)
[2021-04-04] MEDS ORDERED: MAG HYDROX/AL HYDROX/SIMETH 30 ML UNIT-DOSE CUP PO PRN (19:48)
[2021-04-04] MEDS ORDERED: BISMUTH SUBSALICYLATE 524 MG/30 ML PO PRN (19:48)
[2021-04-04] MEDS ORDERED: IBUPROFEN 400 MG TABLET (FP) PO PRN (19:48)
[2021-04-04] MEDS ORDERED: MENTHOL/PHENOL 1 EACH UD MM PRN (19:48)
[2021-04-04] MEDS ORDERED: ACETAMINOPHEN 325 MG TABLET (FP) PO PRN ×2 (19:48)
[2021-04-04] MEDS ORDERED: diazePAM 5 MG TABLET PO PRN (19:48)
[2021-04-04] MEDS ORDERED: MAGNESIUM HYDROX 2400MG/30ML ORAL SUSPENSION 30 ML CUP PO PRN (19:48)
[2021-04-04] MEDS ORDERED: METHOCARBAMOL 500 MG TABLET PO PRN (19:48)
[2021-04-04] MEDS ORDERED: MAGNESIUM CITRATE 300 ML BOTTLE PO PRN (19:48)
[2021-04-04 19:51] VITALS: BMI 36.0
[2021-04-04] MEDS: MELATONIN 5 MG TABLETS PO SCH (22:47)
[2021-04-04] MEDS: THIAMINE HCL 100 MG TABLET (FP) PO SCH (22:48)
[2021-04-04] MEDS: hydrOXYzine PAMOATE 25 MG CAPSULE (FP) PO SCH (22:48)
[2021-04-04] MEDS: diazePAM 5 MG TABLET PO SCH (22:49)
[2021-04-05] MEDS: diazePAM 5 MG TABLET PO SCH ×4 (05:22→23:11)
[2021-04-05] MEDS: hydrOXYzine PAMOATE 25 MG CAPSULE (FP) PO SCH ×5 (05:23→23:10)
[2021-04-05] MEDS ORDERED: METHADONE HCL 10 MG TABLET PO ONE (07:49)
[2021-04-05] MEDS ORDERED: ALBUTEROL SO4 HFA INHALER IH PRN (07:49)
[2021-04-05] MEDS ORDERED: METHADONE 30 MG, METHADONE 5 MG PO ONE (08:15)
[2021-04-05] MEDS ORDERED: METHADONE HCL 10 MG TABLET ONE (08:37)
[2021-04-05] MEDS ORDERED: METHADONE HCL 5 MG TABLET ONE (08:37)
[2021-04-05] MEDS: PRENATAL VITAMINS W/ FOLIC ACID TABLET (FP) PO SCH (10:05)
[2021-04-05 10:11] LABS: HEMATOCRIT 37.3 % (32.4-45.2); HEMOGLOBIN 11.9 GM/dL (10.7-15.3); MCH 25.6 pg (25.7-33.7); MCHC 31.9 g/dl (32.0-36.0); MEAN CELL VOLUME 80.3 fl (80-96); MEAN PLT VOLUME 9.2 fl (7.5-11.1); PLATELET COUNT 197 10^3/uL (134-434); RBC 4.65 M/mm3 (3.60-5.2); RDW 15.2 % (11.6-15.6); WHITE BLOOD COUNT 4.4 K/mm3 (4.0-10.0)
[2021-04-05 10:14] LABS: BLOOD UREA NITROGEN 20.5 mg/dL (7-18); CALCIUM 8.9 mg/dL (8.5-10.1)
[2021-04-05 10:15] LABS: ALBUMIN 3.3 g/dl (3.4-5.0)
[2021-04-05 10:18] LABS: CREATININE 0.8 mg/dL (0.55-1.3)
[2021-04-05 10:19] LABS: TOT PROT 6.2 g/dl (6.4-8.2)
[2021-04-05 10:20] LABS: BILIRUBIN,TOTAL 0.4 mg/dL (0.2-1)
[2021-04-05] MEDS: MELATONIN 5 MG TABLETS PO SCH (23:10)
[2021-04-05] MEDS: QUEtiapine FUMARATE 100 MG TABLET (FP) PO SCH (23:11)
[2021-04-05] MEDS: THIAMINE HCL 100 MG TABLET (FP) PO SCH (23:11)
[2021-04-06] MEDS ORDERED: METHADONE HCL 10 MG TABLET ONE (04:42)
[2021-04-06] MEDS ORDERED: METHADONE HCL 5 MG TABLET ONE (04:42)
[2021-04-06] MEDS ORDERED: METHADONE HCL 40 MG DISPERSABLE TABLET PO SCH (06:00)
[2021-04-06] MEDS: METHADONE 30 MG, METHADONE 5 MG PO SCH (06:04)
[2021-04-06] MEDS: diazePAM 5 MG TABLET PO SCH ×3 (06:05→22:51)
[2021-04-06] MEDS: hydrOXYzine PAMOATE 25 MG CAPSULE (FP) PO SCH ×5 (06:05→22:50)
[2021-04-06] MEDS: PRENATAL VITAMINS W/ FOLIC ACID TABLET (FP) PO SCH (10:55)
[2021-04-06] MEDS: THIAMINE HCL 100 MG TABLET (FP) PO SCH (22:50)
[2021-04-06] MEDS: MELATONIN 5 MG TABLETS PO SCH (22:51)
[2021-04-06] MEDS: QUEtiapine FUMARATE 100 MG TABLET (FP) PO SCH (22:54)
[2021-04-07] MEDS ORDERED: METHADONE HCL 10 MG TABLET ONE (04:36)
[2021-04-07] MEDS ORDERED: METHADONE HCL 5 MG TABLET ONE (04:37)
[2021-04-07] MEDS: diazePAM 5 MG TABLET PO SCH ×2 (06:16→17:21)
[2021-04-07] MEDS: hydrOXYzine PAMOATE 25 MG CAPSULE (FP) PO SCH ×5 (06:16→22:05)
[2021-04-07] MEDS: METHADONE 30 MG, METHADONE 5 MG PO SCH (06:17)
[2021-04-07] MEDS: PRENATAL VITAMINS W/ FOLIC ACID TABLET (FP) PO SCH (10:17)
[2021-04-07] MEDS: QUEtiapine FUMARATE 100 MG TABLET (FP) PO SCH (22:05)
[2021-04-07] MEDS: THIAMINE HCL 100 MG TABLET (FP) PO SCH (22:05)
[2021-04-07] MEDS: MELATONIN 5 MG TABLETS PO SCH (22:06)
[2021-04-08] MEDS ORDERED: METHADONE HCL 10 MG TABLET ONE (04:44)
[2021-04-08] MEDS ORDERED: METHADONE HCL 5 MG TABLET ONE (04:45)
[2021-04-08] MEDS: hydrOXYzine PAMOATE 25 MG CAPSULE (FP) PO SCH ×2 (05:40→09:23)
[2021-04-08] MEDS: METHADONE 30 MG, METHADONE 5 MG PO SCH (05:40)
[2021-04-08] MEDS ORDERED: diazePAM 5 MG TABLET PO ONE (06:00)
[2021-04-08 09:18] VITALS: BP 105/77; PULSE 77; TEMP 96.8
[2021-04-08] MEDS: PRENATAL VITAMINS W/ FOLIC ACID TABLET (FP) PO SCH (09:23)
== END 2021-04-08 11:30 | disposition home or self-care (01) | DRG 773 ==
LOC: YASAS 16:55 → Y3N 20:10
PROVIDERS: ADMIT Allergy & Immunology; ATTEND Allergy & Immunology
PROC: HZ2ZZZZ Detoxification Services for Substance Abuse Treatment (ICD-10-PCS; principal; 2021-04-04)
DX: F10.230 Alcohol dependence with withdrawal, uncomplicated (principal); F11.20 Opioid dependence, uncomplicated; F13.20 Sedative, hypnotic or anxiolytic dependence, uncomplicated; F14.20 Cocaine dependence, uncomplicated; F19.282 Other psychoactive substance dependence with psychoactive substance-induced sleep disorder; F19.24 Other psychoactive substance dependence with psychoactive substance-induced mood disorder; F31.9 Bipolar disorder, unspecified; J45.909 Unspecified asthma, uncomplicated; G47.00 Insomnia, unspecified; Z96.653 Presence of artificial knee joint, bilateral; Z87.891 Personal history of nicotine dependence; Z88.8 Allergy status to other drugs, medicaments and biological substances
CPT/HCPCS: 36415; 80053; 84520; 85027; 86780; C9803; U0003; U0005

== ENCOUNTER 2021-08-15 14:15 | Inpatient (IN) | payer OTHER ==
[2021-08-15] MEDS ORDERED: ACETAMINOPHEN 325 MG TABLET (FP) PO PRN ×4 (15:39→16:50)
[2021-08-15] MEDS ORDERED: METHOCARBAMOL 500 MG TABLET PO PRN ×2 (15:39→16:50)
[2021-08-15] MEDS ORDERED: MAG HYDROX/AL HYDROX/SIMETH 30 ML UNIT-DOSE CUP PO PRN ×2 (15:39→16:50)
[2021-08-15] MEDS ORDERED: MAGNESIUM HYDROX 2400MG/30ML ORAL SUSPENSION 30 ML CUP PO PRN ×2 (15:39→16:50)
[2021-08-15] MEDS ORDERED: MAGNESIUM CITRATE 300 ML BOTTLE PO PRN ×2 (15:39→16:50)
[2021-08-15] MEDS ORDERED: IBUPROFEN 400 MG TABLET (FP) PO PRN ×2 (15:39→16:50)
[2021-08-15] MEDS ORDERED: ONDANSETRON *ODT* 4 MG TABLET SL PRN ×2 (15:39→16:50)
[2021-08-15] MEDS ORDERED: BISMUTH SUBSALICYLATE 524 MG/30 ML PO PRN ×2 (15:39→16:50)
[2021-08-15] MEDS ORDERED: diazePAM 5 MG TABLET PO PRN ×2 (15:39→16:50)
[2021-08-15] MEDS ORDERED: NICOTINE 10 MG CARTRIDGE (INHALER) IH PRN ×2 (15:39→16:50)
[2021-08-15] MEDS ORDERED: MENTHOL/PHENOL 1 EACH UD MM PRN ×2 (15:39→16:50)
[2021-08-15] MEDS ORDERED: ALBUTEROL SO4 HFA INHALER IH PRN (15:41)
[2021-08-15] MEDS ORDERED: diazePAM 5 MG TABLET PO SCH (17:00)
[2021-08-15] MEDS ORDERED: hydrOXYzine PAMOATE 25 MG CAPSULE (FP) PO SCH (18:00)
[2021-08-15 19:45] VITALS: BMI 31.8
[2021-08-15] MEDS: hydrOXYzine PAMOATE 25 MG CAPSULE (FP) PO SCH ×2 (21:57)
[2021-08-15] MEDS: diazePAM 5 MG TABLET PO SCH ×2 (21:57→22:00)
[2021-08-15] MEDS: THIAMINE HCL 100 MG TABLET (FP) PO SCH (21:57)
[2021-08-15] MEDS: PRENATAL VITAMINS W/ FOLIC ACID TABLET (FP) PO SCH (21:57)
[2021-08-15] MEDS ORDERED: THIAMINE HCL 100 MG TABLET (FP) PO SCH (22:00)
[2021-08-15] MEDS ORDERED: MELATONIN 5 MG TABLETS PO SCH ×2 (22:00)
[2021-08-16] MEDS: hydrOXYzine PAMOATE 25 MG CAPSULE (FP) PO SCH ×5 (05:50→22:17)
[2021-08-16] MEDS: diazePAM 5 MG TABLET PO SCH ×4 (05:51→22:17)
[2021-08-16] MEDS ORDERED: PRENATAL VITAMINS W/ FOLIC ACID TABLET (FP) PO SCH (10:00)
[2021-08-16] MEDS ORDERED: methaDONE HCL 10 MG TABLET PO SCH (10:00)
[2021-08-16] MEDS: PRENATAL VITAMINS W/ FOLIC ACID TABLET (FP) PO SCH (10:12)
[2021-08-16] MEDS ORDERED: methaDONE HCL 10 MG TABLET ONE (10:15)
[2021-08-16] MEDS: QUEtiapine FUMARATE 100 MG TABLET (FP) PO SCH ×2 (10:21→22:19)
[2021-08-16 11:21] LABS: HEMATOCRIT 41.6 % (32.4-45.2); HEMOGLOBIN 14.2 GM/dL (10.7-15.3); MCH 27.3 pg (25.7-33.7); MCHC 34.1 g/dl (32.0-36.0); MEAN PLT VOLUME 8.2 fl (7.5-11.1); PLATELET COUNT 183 10^3/uL (134-434); RBC 5.19 M/mm3 (3.60-5.2); RDW 14.1 % (11.6-15.6); WHITE BLOOD COUNT 4.8 K/mm3 (4.0-10.0)
[2021-08-16 11:33] LABS: CALCIUM 9.3 mg/dL (8.5-10.1)
[2021-08-16 11:34] LABS: ALBUMIN 3.8 g/dl (3.4-5.0); BLOOD UREA NITROGEN 20.6 mg/dL (7-18)
[2021-08-16 11:36] LABS: CREATININE 0.9 mg/dL (0.55-1.3)
[2021-08-16 11:38] LABS: BILIRUBIN,TOTAL 0.5 mg/dL (0.2-1); TOT PROT 7.5 g/dl (6.4-8.2)
[2021-08-16] MEDS: THIAMINE HCL 100 MG TABLET (FP) PO SCH (22:17)
[2021-08-17] MEDS ORDERED: methaDONE HCL 10 MG TABLET ONE (05:49)
[2021-08-17] MEDS: diazePAM 5 MG TABLET PO SCH ×3 (05:51→22:31)
[2021-08-17] MEDS ORDERED: diazePAM 5 MG TABLET PO SCH (06:00)
[2021-08-17] MEDS: hydrOXYzine PAMOATE 25 MG CAPSULE (FP) PO SCH ×5 (06:02→22:30)
[2021-08-17] MEDS: PRENATAL VITAMINS W/ FOLIC ACID TABLET (FP) PO SCH (10:10)
[2021-08-17] MEDS: QUEtiapine FUMARATE 100 MG TABLET (FP) PO SCH ×2 (10:10→22:32)
[2021-08-17] MEDS: THIAMINE HCL 100 MG TABLET (FP) PO SCH (22:30)
[2021-08-18] MEDS ORDERED: methaDONE HCL 10 MG TABLET ONE (04:13)
[2021-08-18] MEDS ORDERED: diazePAM 5 MG TABLET PO SCH (06:00)
[2021-08-18] MEDS: diazePAM 5 MG TABLET PO SCH ×2 (06:12→17:04)
[2021-08-18] MEDS: hydrOXYzine PAMOATE 25 MG CAPSULE (FP) PO SCH ×5 (06:12→22:07)
[2021-08-18] MEDS: PRENATAL VITAMINS W/ FOLIC ACID TABLET (FP) PO SCH (10:07)
[2021-08-18] MEDS: QUEtiapine FUMARATE 100 MG TABLET (FP) PO SCH ×2 (10:07→22:07)
[2021-08-18] MEDS: THIAMINE HCL 100 MG TABLET (FP) PO SCH (22:07)
[2021-08-19] MEDS ORDERED: methaDONE HCL 10 MG TABLET ONE (04:13)
[2021-08-19] MEDS: hydrOXYzine PAMOATE 25 MG CAPSULE (FP) PO SCH (05:45)
[2021-08-19] MEDS ORDERED: diazePAM 5 MG TABLET PO ONE ×2 (06:00)
[2021-08-19 07:11] VITALS: BP 121/81; PULSE 97; TEMP 97.3
== END 2021-08-19 09:36 | disposition home or self-care (01) | DRG 773 ==
LOC: YASAS 14:15 → Y6N 17:52
PROVIDERS: ADMIT Allergy & Immunology; ATTEND Allergy & Immunology
PROC: HZ2ZZZZ Detoxification Services for Substance Abuse Treatment (ICD-10-PCS; principal; 2021-08-15)
DX: F10.230 Alcohol dependence with withdrawal, uncomplicated (principal); F13.230 Sedative, hypnotic or anxiolytic dependence with withdrawal, uncomplicated; F11.20 Opioid dependence, uncomplicated; F14.20 Cocaine dependence, uncomplicated; F31.9 Bipolar disorder, unspecified; F19.282 Other psychoactive substance dependence with psychoactive substance-induced sleep disorder; F19.24 Other psychoactive substance dependence with psychoactive substance-induced mood disorder; I10 Essential (primary) hypertension; J45.909 Unspecified asthma, uncomplicated; M06.9 Rheumatoid arthritis, unspecified; Z96.653 Presence of artificial knee joint, bilateral; E66.9 Obesity, unspecified; Z68.31 Body mass index [BMI] 31.0-31.9, adult; Z87.891 Personal history of nicotine dependence; Z88.8 Allergy status to other drugs, medicaments and biological substances
CPT/HCPCS: 36415; 80053; 85027; 86780; C9803; U0003; U0005

== ENCOUNTER 2021-11-06 13:41 | Emergency (ER) | payer OTHER ==
[2021-11-06 14:06] VITALS: BP 107/63; TEMP 98.3; BMI 31.3
[2021-11-06 14:44] VITALS: PULSE 94
== END 2021-11-06 14:53 | disposition home or self-care (01) ==
LOC: JER 13:41 → JERFT 13:41
DX: F10.10 Alcohol abuse, uncomplicated (principal)
CPT/HCPCS: 93005; 93010; 99283-25

== ENCOUNTER 2021-11-06 15:16 | Inpatient (IN) | payer OTHER ==
[2021-11-06] MEDS ORDERED: ONDANSETRON *ODT* 4 MG TABLET SL PRN (18:13)
[2021-11-06] MEDS ORDERED: MAGNESIUM HYDROX 2400MG/30ML ORAL SUSPENSION 30 ML CUP PO PRN (18:13)
[2021-11-06] MEDS ORDERED: IBUPROFEN 400 MG TABLET (FP) PO PRN (18:13)
[2021-11-06] MEDS ORDERED: MAG HYDROX/AL HYDROX/SIMETH 30 ML UNIT-DOSE CUP PO PRN (18:13)
[2021-11-06] MEDS ORDERED: BISMUTH SUBSALICYLATE 524 MG/30 ML PO PRN (18:13)
[2021-11-06] MEDS ORDERED: ACETAMINOPHEN 325 MG TABLET (FP) PO PRN ×2 (18:13)
[2021-11-06] MEDS ORDERED: MENTHOL/PHENOL 1 EACH UD MM PRN (18:13)
[2021-11-06] MEDS ORDERED: MAGNESIUM CITRATE 300 ML BOTTLE PO PRN (18:13)
[2021-11-06] MEDS ORDERED: diazePAM 5 MG TABLET PO PRN (18:15)
[2021-11-06 20:17] VITALS: BMI 32.5
[2021-11-06] MEDS ORDERED: MELATONIN 5 MG TABLETS PO SCH (22:00)
[2021-11-07] MEDS: THIAMINE HCL 100 MG TABLET (FP) PO SCH ×2 (02:31→22:53)
[2021-11-07] MEDS ORDERED: methaDONE HCL 10 MG TABLET ONE (09:40)
[2021-11-07] MEDS ORDERED: LORazepam 0.5 MG TABLET PO PRN (09:41)
[2021-11-07] MEDS ORDERED: methaDONE HCL 10 MG TABLET PO ONE (10:00)
[2021-11-07] MEDS: PRENATAL VITAMINS W/ FOLIC ACID TABLET (FP) PO SCH (10:22)
[2021-11-07] MEDS: hydrOXYzine PAMOATE 25 MG CAPSULE (FP) PO PRN (10:23)
[2021-11-07] MEDS: METHOCARBAMOL 500 MG TABLET PO PRN (10:24)
[2021-11-07] MEDS ORDERED: LORazepam 0.5 MG TABLET PO SCH (11:00)
[2021-11-07] MEDS: amLODIPine BESYLATE 5 MG TABLET (FP) PO SCH (12:00)
[2021-11-07] MEDS: diazePAM 5 MG TABLET PO PRN (12:00)
[2021-11-07 13:03] LABS: HEMATOCRIT 37.3 % (32.4-45.2); MCH 26.3 pg (25.7-33.7); MEAN CELL VOLUME 82.2 fl (80-96); MEAN PLT VOLUME 8.9 fl (7.5-11.1); PLATELET COUNT 187 10^3/uL (134-434); RBC 4.54 M/mm3 (3.60-5.2); RDW 15.2 % (11.6-15.6)
[2021-11-07 13:35] LABS: ALBUMIN 3.4 g/dl (3.4-5.0); BLOOD UREA NITROGEN 27.4 mg/dL (7-18); CALCIUM 9.2 mg/dL (8.5-10.1)
[2021-11-07 13:37] LABS: CREATININE 0.9 mg/dL (0.55-1.3)
[2021-11-07 13:39] LABS: BILIRUBIN,TOTAL 0.6 mg/dL (0.2-1); TOT PROT 6.2 g/dl (6.4-8.2)
[2021-11-07] MEDS: diazePAM 5 MG TABLET PO SCH ×2 (18:08→22:53)
[2021-11-07] MEDS: QUEtiapine FUMARATE 100 MG TABLET (FP) PO SCH (22:56)
[2021-11-07] MEDS: MIRTAZAPINE 15 MG TABLET (FP) PO SCH (22:56)
[2021-11-08] MEDS ORDERED: methaDONE HCL 10 MG TABLET ONE (04:48)
[2021-11-08] MEDS ORDERED: LORazepam 0.5 MG TABLET PO SCH (06:00)
[2021-11-08] MEDS ORDERED: methaDONE HCL 10 MG TABLET PO SCH (06:00)
[2021-11-08] MEDS: diazePAM 5 MG TABLET PO SCH ×3 (06:32→22:10)
[2021-11-08] MEDS: METHOCARBAMOL 500 MG TABLET PO PRN ×3 (10:04→22:10)
[2021-11-08] MEDS: amLODIPine BESYLATE 5 MG TABLET (FP) PO SCH (10:04)
[2021-11-08] MEDS: hydrOXYzine PAMOATE 25 MG CAPSULE (FP) PO PRN ×3 (10:04→17:36)
[2021-11-08] MEDS: PRENATAL VITAMINS W/ FOLIC ACID TABLET (FP) PO SCH (10:04)
[2021-11-08] MEDS: diazePAM 5 MG TABLET PO PRN (10:04)
[2021-11-08] MEDS: QUEtiapine FUMARATE 100 MG TABLET (FP) PO SCH (22:10)
[2021-11-08] MEDS: THIAMINE HCL 100 MG TABLET (FP) PO SCH (22:10)
[2021-11-08] MEDS: MIRTAZAPINE 15 MG TABLET (FP) PO SCH (22:11)
[2021-11-09] MEDS ORDERED: methaDONE HCL 10 MG TABLET ONE (04:06)
[2021-11-09] MEDS ORDERED: LORazepam 0.5 MG TABLET PO SCH (05:00)
[2021-11-09] MEDS: hydrOXYzine PAMOATE 25 MG CAPSULE (FP) PO PRN ×5 (05:30→22:21)
[2021-11-09] MEDS: diazePAM 5 MG TABLET PO SCH ×2 (05:32→18:34)
[2021-11-09] MEDS: PRENATAL VITAMINS W/ FOLIC ACID TABLET (FP) PO SCH (10:03)
[2021-11-09] MEDS: amLODIPine BESYLATE 5 MG TABLET (FP) PO SCH (10:03)
[2021-11-09] MEDS ORDERED: NICOTINE 10 MG CARTRIDGE (INHALER) IH PRN (11:08)
[2021-11-09 13:55] LABS: CALCIUM 9.1 mg/dL (8.5-10.1)
[2021-11-09 13:56] LABS: BLOOD UREA NITROGEN 16.1 mg/dL (7-18)
[2021-11-09 13:59] LABS: CREATININE 0.7 mg/dL (0.55-1.3)
[2021-11-09] MEDS: METHOCARBAMOL 500 MG TABLET PO PRN (14:59)
[2021-11-09] MEDS ORDERED: diphenhydrAMINE HCL 25 MG CAPSULE (FP) PO ONE (16:48)
[2021-11-09] MEDS: MIRTAZAPINE 15 MG TABLET (FP) PO SCH (22:21)
[2021-11-09] MEDS: QUEtiapine FUMARATE 100 MG TABLET (FP) PO SCH (22:21)
[2021-11-09] MEDS: THIAMINE HCL 100 MG TABLET (FP) PO SCH (22:21)
[2021-11-10] MEDS ORDERED: methaDONE HCL 10 MG TABLET ONE (04:07)
[2021-11-10] MEDS ORDERED: diazePAM 5 MG TABLET PO ONE (05:00)
[2021-11-10] MEDS ORDERED: LORazepam 0.5 MG TABLET PO ONE (06:00)
[2021-11-10 07:44] VITALS: BP 133/85; PULSE 67; TEMP 97.1
[2021-11-10] MEDS: amLODIPine BESYLATE 5 MG TABLET (FP) PO SCH (10:17)
[2021-11-10] MEDS: PRENATAL VITAMINS W/ FOLIC ACID TABLET (FP) PO SCH (10:17)
== END 2021-11-10 10:31 | disposition home or self-care (01) | DRG 773 ==
LOC: YASAS 15:16 → Y6N 23:03
PROVIDERS: ADMIT Allergy & Immunology; ATTEND Allergy & Immunology
PROC: HZ2ZZZZ Detoxification Services for Substance Abuse Treatment (ICD-10-PCS; principal; 2021-11-06)
DX: F10.230 Alcohol dependence with withdrawal, uncomplicated (principal); F11.20 Opioid dependence, uncomplicated; F13.230 Sedative, hypnotic or anxiolytic dependence with withdrawal, uncomplicated; F14.20 Cocaine dependence, uncomplicated; F31.9 Bipolar disorder, unspecified; F19.282 Other psychoactive substance dependence with psychoactive substance-induced sleep disorder; F19.24 Other psychoactive substance dependence with psychoactive substance-induced mood disorder; F41.9 Anxiety disorder, unspecified; I10 Essential (primary) hypertension; J45.20 Mild intermittent asthma, uncomplicated; K21.9 Gastro-esophageal reflux disease without esophagitis; M19.90 Unspecified osteoarthritis, unspecified site; Z96.653 Presence of artificial knee joint, bilateral; E66.9 Obesity, unspecified; Z68.32 Body mass index [BMI] 32.0-32.9, adult; Z86.2 Personal history of diseases of the blood and blood-forming organs and certain disorders involving the immune mechanism; Z87.891 Personal history of nicotine dependence; Z88.8 Allergy status to other drugs, medicaments and biological substances
CPT/HCPCS: 36415; 80048; 80053; 82947; 85027; 86780; C9803; U0003; U0005

== ENCOUNTER 2022-08-13 09:51 | Inpatient (IN) | payer OTHER ==
[2022-08-13 10:53] VITALS: BMI 30.7
[2022-08-13] MEDS ORDERED: IBUPROFEN 600 MG TABLET (FP) PO PRN (12:48)
[2022-08-13] MEDS ORDERED: ONDANSETRON *ODT* 4 MG TABLET SL PRN (12:48)
[2022-08-13] MEDS ORDERED: MAG HYDROX/AL HYDROX/SIMETH 30 ML UNIT-DOSE CUP PO PRN (12:48)
[2022-08-13] MEDS ORDERED: METHOCARBAMOL 500 MG TABLET PO PRN (12:48)
[2022-08-13] MEDS ORDERED: BENZOCAINE/MENTHOL (CHLORASEPTIC ) LOZENGE MM PRN (12:48)
[2022-08-13] MEDS ORDERED: MAGNESIUM HYDROX 2400MG/30ML ORAL SUSPENSION 30 ML CUP PO PRN (12:48)
[2022-08-13] MEDS ORDERED: IBUPROFEN 400 MG TABLET (FP) PO PRN (12:48)
[2022-08-13] MEDS ORDERED: MAGNESIUM CITRATE 300 ML BOTTLE PO PRN (12:48)
[2022-08-13] MEDS ORDERED: NICOTINE 10 MG CARTRIDGE (INHALER) IH PRN (12:48)
[2022-08-13] MEDS ORDERED: BISMUTH SUBSALICYLATE 524 MG/30 ML PO PRN (12:48)
[2022-08-13] MEDS ORDERED: DICYCLOMINE HCL 10 MG CAPSULE PO PRN (12:48)
[2022-08-13] MEDS ORDERED: NALOXONE HCL (KLOXXADO) 8 MG SPRAY NS PRN (12:48)
[2022-08-13] MEDS ORDERED: chlordiazePOXIDE HCL 25 MG CAPSULE PO PRN (12:48)
[2022-08-13] MEDS ORDERED: ACETAMINOPHEN 325 MG TABLET (FP) PO PRN ×2 (12:48)
[2022-08-13] MEDS ORDERED: LOPERAMIDE HCL 2 MG CAPSULE PO PRN (12:48)
[2022-08-13] MEDS ORDERED: hydrOXYzine PAMOATE 25 MG CAPSULE (FP) PO ONE (13:04)
[2022-08-13] MEDS: hydrOXYzine PAMOATE 25 MG CAPSULE (FP) PO PRN ×2 (13:07→21:00)
[2022-08-13] MEDS ORDERED: ALBUTEROL SO4 HFA INHALER IH PRN (15:07)
[2022-08-13] MEDS: amLODIPine BESYLATE 5 MG TABLET (FP) PO SCH (15:29)
[2022-08-13] MEDS: chlordiazePOXIDE HCL 25 MG CAPSULE PO SCH ×2 (17:25→22:22)
[2022-08-13] MEDS: THIAMINE HCL 100 MG TABLET (FP) PO SCH (22:21)
[2022-08-13] MEDS: MELATONIN 5 MG TABLETS PO SCH (22:22)
[2022-08-14] MEDS: chlordiazePOXIDE HCL 25 MG CAPSULE PO SCH ×4 (06:01→22:30)
[2022-08-14] MEDS ORDERED: methaDONE HCL 10 MG TABLET PO ONE (09:40)
[2022-08-14] MEDS: PRENATAL VITAMINS W/ FOLIC ACID TABLET (FP) PO SCH (10:07)
[2022-08-14] MEDS: amLODIPine BESYLATE 5 MG TABLET (FP) PO SCH (10:07)
[2022-08-14] MEDS: methaDONE HCL 10 MG TABLET PO SCH (10:07)
[2022-08-14 11:37] LABS: HEMATOCRIT 37.7 % (32.4-45.2); HEMOGLOBIN 12.5 GM/dL (10.7-15.3); MCH 27.5 pg (25.7-33.7); MCHC 33.2 g/dl (32.0-36.0); MEAN PLT VOLUME 8.3 fl (7.5-11.1); PLATELET COUNT 202 10^3/uL (134-434); RBC 4.54 M/mm3 (3.60-5.2); RDW 14.6 % (11.6-15.6); WHITE BLOOD COUNT 3.3 K/mm3 (4.0-10.0)
[2022-08-14 11:43] LABS: ALBUMIN 3.5 g/dl (3.4-5.0); CALCIUM 9.3 mg/dL (8.5-10.1)
[2022-08-14 11:44] LABS: BLOOD UREA NITROGEN 15.8 mg/dL (7-18)
[2022-08-14 11:46] LABS: CREATININE 0.8 mg/dL (0.55-1.3)
[2022-08-14 11:48] LABS: BILIRUBIN,TOTAL 0.6 mg/dL (0.2-1); TOT PROT 6.5 g/dl (6.4-8.2)
[2022-08-14] MEDS: hydrOXYzine PAMOATE 25 MG CAPSULE (FP) PO PRN (14:48)
[2022-08-14] MEDS: MELATONIN 5 MG TABLETS PO SCH (22:30)
[2022-08-14] MEDS: QUEtiapine FUMARATE 100 MG TABLET (FP) PO SCH (22:30)
[2022-08-14] MEDS: THIAMINE HCL 100 MG TABLET (FP) PO SCH (22:30)
[2022-08-15] MEDS: methaDONE HCL 10 MG TABLET PO SCH (05:33)
[2022-08-15] MEDS: chlordiazePOXIDE HCL 25 MG CAPSULE PO SCH ×4 (05:34→22:28)
[2022-08-15] MEDS: amLODIPine BESYLATE 5 MG TABLET (FP) PO SCH (10:13)
[2022-08-15] MEDS: PRENATAL VITAMINS W/ FOLIC ACID TABLET (FP) PO SCH (10:13)
[2022-08-15] MEDS: SULFAMETHOXAZOLE/TRIMETHOPRIM 800MG/160MG D.S. TABLET PO SCH ×2 (10:40→22:26)
[2022-08-15] MEDS: QUEtiapine FUMARATE 100 MG TABLET (FP) PO SCH (22:26)
[2022-08-15] MEDS: THIAMINE HCL 100 MG TABLET (FP) PO SCH (22:26)
[2022-08-15] MEDS: MELATONIN 5 MG TABLETS PO SCH (22:29)
[2022-08-16] MEDS ORDERED: chlordiazePOXIDE HCL 10 MG CAPSULE PO PRN
[2022-08-16] MEDS: chlordiazePOXIDE HCL 10 MG CAPSULE PO SCH ×4 (05:52→22:07)
[2022-08-16] MEDS: methaDONE HCL 10 MG TABLET PO SCH (05:53)
[2022-08-16] MEDS: SULFAMETHOXAZOLE/TRIMETHOPRIM 800MG/160MG D.S. TABLET PO SCH ×2 (10:26→22:06)
[2022-08-16] MEDS: PRENATAL VITAMINS W/ FOLIC ACID TABLET (FP) PO SCH (10:26)
[2022-08-16] MEDS: amLODIPine BESYLATE 5 MG TABLET (FP) PO SCH (10:26)
[2022-08-16] MEDS: hydrOXYzine PAMOATE 25 MG CAPSULE (FP) PO PRN ×2 (10:27→17:16)
[2022-08-16] MEDS: THIAMINE HCL 100 MG TABLET (FP) PO SCH (22:06)
[2022-08-16] MEDS: QUEtiapine FUMARATE 100 MG TABLET (FP) PO SCH (22:06)
[2022-08-16] MEDS: MELATONIN 5 MG TABLETS PO SCH (22:07)
[2022-08-17] MEDS: methaDONE HCL 10 MG TABLET PO SCH (05:31)
[2022-08-17] MEDS: chlordiazePOXIDE HCL 10 MG CAPSULE PO SCH ×2 (05:31→17:22)
[2022-08-17] MEDS: SULFAMETHOXAZOLE/TRIMETHOPRIM 800MG/160MG D.S. TABLET PO SCH ×2 (10:06→22:33)
[2022-08-17] MEDS: amLODIPine BESYLATE 5 MG TABLET (FP) PO SCH (10:06)
[2022-08-17] MEDS: PRENATAL VITAMINS W/ FOLIC ACID TABLET (FP) PO SCH (10:06)
[2022-08-17] MEDS: hydrOXYzine PAMOATE 25 MG CAPSULE (FP) PO PRN (17:22)
[2022-08-17] MEDS: MELATONIN 5 MG TABLETS PO SCH (22:33)
[2022-08-17] MEDS: THIAMINE HCL 100 MG TABLET (FP) PO SCH (22:33)
[2022-08-17] MEDS: QUEtiapine FUMARATE 100 MG TABLET (FP) PO SCH (22:33)
[2022-08-18] MEDS ORDERED: chlordiazePOXIDE HCL 10 MG CAPSULE PO ONE (05:00)
[2022-08-18] MEDS: methaDONE HCL 10 MG TABLET PO SCH (05:26)
[2022-08-18 06:19] VITALS: TEMP 97.1
[2022-08-18] MEDS: amLODIPine BESYLATE 5 MG TABLET (FP) PO SCH (09:32)
[2022-08-18] MEDS: PRENATAL VITAMINS W/ FOLIC ACID TABLET (FP) PO SCH (09:33)
[2022-08-18] MEDS: SULFAMETHOXAZOLE/TRIMETHOPRIM 800MG/160MG D.S. TABLET PO SCH (09:40)
[2022-08-18 10:00] VITALS: BP 109/77; PULSE 110; RESP 16
== END 2022-08-18 10:00 | disposition home or self-care (01) | DRG 773 ==
LOC: YASAS 09:51 → Y6N 12:46
PROVIDERS: ADMIT Allergy & Immunology; ATTEND Surgery
PROC: HZ2ZZZZ Detoxification Services for Substance Abuse Treatment (ICD-10-PCS; principal; 2022-08-13)
DX: F10.230 Alcohol dependence with withdrawal, uncomplicated (principal); F13.230 Sedative, hypnotic or anxiolytic dependence with withdrawal, uncomplicated; F11.20 Opioid dependence, uncomplicated; F14.20 Cocaine dependence, uncomplicated; F31.70 Bipolar disorder, currently in remission, most recent episode unspecified; F19.282 Other psychoactive substance dependence with psychoactive substance-induced sleep disorder; F19.24 Other psychoactive substance dependence with psychoactive substance-induced mood disorder; I10 Essential (primary) hypertension; J45.20 Mild intermittent asthma, uncomplicated; L02.611 Cutaneous abscess of right foot; M17.0 Bilateral primary osteoarthritis of knee; Z87.891 Personal history of nicotine dependence; Z88.8 Allergy status to other drugs, medicaments and biological substances
CPT/HCPCS: 36415; 80053; 85027; 86780; 93005; 93010; C9803-CS; U0003; U0005